=== PATIENT | male | born 1970 | race Two or more races ===

== ENCOUNTER 2020-10-20 11:37 | Emergency (ER) | payer MEDICAID, SELFPAY ==
[2020-10-20] VITALS (7 sets, daily range): BP systolic 129–166; BP diastolic 80–100; PULSE 75–98; RESP 12–20; TEMP 36.4–36.6; O2SAT 97–98; BMI 48.7
--- NOTE | 2020-10-20 | ECG_ITS ---
Test Reason : CHEST PAIN Blood Pressure : / mmHG Vent. Rate : 083 BPM Atrial Rate : 083 BPM P-R Int : 172 ms QRS Dur : 076 ms QT Int : 344 ms P-R-T Axes : 065 026 023 degrees QTc Int : 404 ms Normal sinus rhythm Normal ECG No previous ECGs available Referred By: Generic ED Physician Electronically Signed By:JASON THOMAS MD
--- NOTE | ~2020-10-20 | XR_ITS ---
EXAMINATION: XR CHEST CLINICAL INFORMATION: Chest pain COMPARISON: None TECHNIQUE: 2 views of the chest were obtained. FINDINGS: The lungs are clear. There is no pneumothorax, pleural reaction, infiltrate, groundglass opacity, or effusion. The heart is normal in size. The costophrenic sulci are clear. The hilar and mediastinal contours are normal. Frontal view is slightly rotated. Bony structures are unremarkable. XR/XR chest 2V IMPRESSION: Unremarkable examination.
--- NOTE | 2020-10-20 12:44 | PC.NURSE ---
patient remains in waiting room- sleepy, snoring at times, patient woke up and stated he was sweaty, family concerned stating that she gave patient 2mg of xanax prior to arrival. SKIN pwd, resp even and non labored, vital signs stable.
--- NOTE | 2020-10-20 14:10 | PC.NURSE ---
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
[2020-10-20 14:34] LABS: MANUAL DIFF FLAG NO
[2020-10-20 14:35] LABS: Basophils Absolute Auto 0.1 X10*3/uL (0.0-0.2); Basophils Percent Auto 0.6 % (0-2); Eosinophils Absolute Auto 0.3 X10*3/uL (0.0-0.4); Eosinophils Percent Auto 3.1 % (0-4); Hematocrit 40.4 % (42-52); Hemoglobin 12.7 g/dl (14.0-18.0); Imm Gran Abs Auto 0.09 X10*3/uL (0.00-0.03); Imm Gran Pct Auto 0.8 % (0.0-0.4); Lymphocytes Absolute Auto 3.1 X10*3/uL (1.2-4.9); Lymphocytes Percent Auto 28.5 % (20-40); Mean Corpuscular HGB Conc 31.4 g/dl (31.0-36.0); Mean Corpuscular Hemoglobin 27.5 pg (27.0-33.0); Mean Corpuscular Volume 87.6 fL (80-98); Neutrophils Absolute Auto 6.3 X10*3/uL (2.0-8.3); Platelet Count 261 X10*3/uL (160-400); Red Blood Count 4.61 X10*6/uL (4.60-5.80); Red Cell Distribution Width 13.6 % (11.0-16.0); White Blood Count 10.8 X10*3/uL (4.8-10.8)
[2020-10-20 14:41] LABS: INTERNATIONAL NORM RATIO 1.1 (0.9-1.1); Prothrombin Time 12.7 SEC (10.8-13.0)
[2020-10-20 14:44] LABS: Partial Thromboplastin Time 32.8 SEC (24.1-38.0)
[2020-10-20 14:59] LABS: Alanine Aminotransferase 29 U/L (0-40); Albumin Level 4.2 g/dL (3.5-5.0); Alkaline Phosphatase 80 U/L (39-117); Anion Gap 14 (12-20); Aspartate Amino Transferase 28 U/L (5-37); Bilirubin Total 0.4 mg/dL (0.0-1.0); Blood Urea Nitrogen 15 mg/dL (9-16); Carbon Dioxide 23 mmol/L (22-29); Chloride 105 mmol/L (96-108); Creatinine Clr Calc Pharmacy 130.8; Estimated Glomerular Filt Rate > 60; Glucose Random 77 mg/dL (60-115); Potassium 4.3 mmol/L (3.3-5.1); Sodium 138 mmol/L (135-145); Total Protein 7.8 g/dL (6.5-8.0)
[2020-10-20 15:05] LABS: Troponin-I High Sensitivity < 3.5 ng/L (<3.5-35.0)
--- NOTE | 2020-10-20 16:14 | ED.CHESTPAIN ---
HPI - Chest Pain General Chief Complaint: Chest Pain Stated Complaint: chest pain Time Seen by Provider: 10/20/20 13:46 Source: patient Mode of arrival: ambulatory History of Present Illness HPI narrative: 50-year-old male with a past medical history of asthma, bronchitis, hypertension, presenting to the ED complaining of right-sided chest pain radiating down right arm x3 days. Admits pain waxes and wanes, with associated tingling in right arm. reports chronic SOB due to asthma, not worsening. Denies fever, chills, new or worsening cough, pleuritic chest pain, LE edema, recent travel, sick contacts MD complaint: chest heaviness Related Data Allergies Allergy/AdvReac Type Severity Reaction Status Date / Time No Known Allergies Allergy Verified 10/20/20 11:51 Review of Systems Review of Systems: Constitutional: No Weight loss, No Fever, No Chills Cardiovascular: + Chest Pain, +Chronic SOB, + Dyspnea on Exertion, No Orthopnea, No Edema, + Palpitations Respiratory: +chronic Cough, No Sputum, No Wheezing Gastrointestinal: No Nausea, No Vomiting, No Abdominal pain Musculoskeletal: No joint pain Skin: No Skin Lesions, No rash Neuro: No Numbness, No Dizziness, No Headache Yes all other systems are reviewed and are negative [facility] Past Medical History Attestation statement: The following information was validated with the patient. Medical History (Updated 10/20/20 @ 17:41 by ASAEL Flowers) Asthma Bronchitis Hard of hearing HTN (hypertension) Social History Social History Alcohol intake: never Smoking Status: Never smoker Use of substances other than those prescribed or required for medical reasons: No Advance Directives: No Advance Directives Information Provided: No Physical Exam Vital Signs: Vital Signs: Last Vital Signs Temp 97.8 F 10/20/20 16:58 Pulse 82 10/20/20 16:58 Resp 20 10/20/20 16:58 BP 141/82 H 10/20/20 16:58 Pulse Ox 97 10/20/20 16:58 Body Mass Index 48.7 Const: General: cooperative, healthy appearing and comfortable Orientation/consciousness: patient oriented x3 Limitations: no limitations HENMT: Head: Yes normal to inspection Ears: hearing grossly normal bilaterally General nose exam: Normal external nose present Face and sinus: Yes normal facial exam Eyes: General: appearance normal, both eyes and all related structures EOM: EOMs intact bilaterally Neck: Neck: Yes normal visual inspection Chest: Other: Right nipple with 12 o'clock ttp w/ small movable lump noted. No fluctuance/induration. No nipple discharge or skin changes Chest palpation & inspection: normal inspection of the chest and no crepitus Resp: Effort & Inspection: normal respiratory effort Auscultation: diminished lung sounds diffuse Cardio: Rate: regular rate Heart sounds: S1 normal heart sound present and S2 normal heart sound present GI: Inspection: Yes normal to inspection Palpation (GI): Soft to palpation, nontender, no guarding and not rigid Skin: Rashes: no rashes Wounds: no wounds Neuro: General: patient oriented x3 Gait exam (Neuro): Normal gait present Extrem: General: Yes normal to inspection and Yes no pedal edema Course Course Course Narrative: -labs are unremarkable including troponin XR chest 2V IMPRESSION: Unremarkable examination -TSH and BNP wnl MDM - Chest Pain MDM Narrative Medical decision making narrative: 50-year-old male with a past medical history of asthma, bronchitis, hypertension, presenting to the ED complaining of right-sided chest pain radiating down right arm x3 days. On exam VSS, NAD/well-appearing, physical exam as above. Concern for ACS vs breast lump causing pain vs viral syndrome/COVID-19. Unlikely PE/CHF or pneumonia. Low concern for dissection. Low concern for abscess Plan: EKG, labs, CXR, reassess Medical Records Data Attestation: I reviewed the patient's medical records. Lab Data Attestation: I reviewed the patient's lab results. Result diagrams: 10/20/20 14:14 10/20/20 14:14 Labs: Lab Results 10/20/20 10/20/20 10/20/20 Range/Units 14:14 14:14 14:14 WBC 10.8 (4.8-10.8) X10*3/uL RBC 4.61 (4.60-5.80) X10*6/uL Hgb 12.7 L (14.0-18.0) g/dl Hct 40.4 L (42-52) % MCV 87.6 (80-98) fL MCH 27.5 (27.0-33.0) pg MCHC 31.4 (31.0-36.0) g/dl RDW 13.6 (11.0-16.0) % Plt Count 261 (160-400) X10*3/uL MPV 10.0 (9.4-12.4) fL Immature Gran % (Auto) 0.8 H (0.0-0.4) % Neut % (Auto) 58.0 (45-73) % Lymph % (Auto) 28.5 (20-40) % [place] % (Auto) 9.0 (2-11) % Eos % (Auto) 3.1 (0-4) % Baso % (Auto) 0.6 (0-2) % Lymph # (Auto) 3.1 (1.2-4.9) X10*3/uL [place] # (Auto) 1.0 (0.1-1.2) X10*3/uL Eos # (Auto) 0.3 (0.0-0.4) X10*3/uL Baso # (Auto) 0.1 (0.0-0.2) X10*3/uL Abs Immat Gran (auto) 0.09 H (0.00-0.03) X10*3/uL Absolute Neuts (auto) 6.3 (2.0-8.3) X10*3/uL Absolute Nucleated RBC 0.000 (0.0-0.012) X10*3/uL Nucleated RBC % (auto) 0.0 (0.0-0.2) /100WBC PT 12.7 (10.8-13.0) SEC INR 1.1 (0.9-1.1) APTT 32.8 (24.1-38.0) SEC Sodium 138 (135-145) mmol/L Potassium 4.3 (3.3-5.1) mmol/L Chloride 105 (96-108) mmol/L Carbon Dioxide 23 (22-29) mmol/L Anion Gap 14 (12-20) BUN 15 (9-16) mg/dL Creatinine 0.87 (0.5-1.4) mg/dL Estim Creat Clear Calc 130.8 Estimated GFR > 60 Random Glucose 77 (60-115) mg/dL Calcium 9.0 (8.4-10.2) mg/dL Total Bilirubin 0.4 (0.0-1.0) mg/dL AST 28 (5-37) U/L ALT 29 (0-40) U/L Alkaline Phosphatase 80 (39-117) U/L Troponin I High Sens (<3.5-35.0) ng/L B-Natriuretic Peptide (<100) pg/mL Total Protein 7.8 (6.5-8.0) g/dL Albumin 4.2 (3.5-5.0) g/dL TSH 0.71 (0.32-4.0) uIU/mL 10/20/20 Range/Units 14:14 WBC (4.8-10.8) X10*3/uL RBC (4.60-5.80) X10*6/uL Hgb (14.0-18.0) g/dl Hct (42-52) % MCV (80-98) fL MCH (27.0-33.0) pg MCHC (31.0-36.0) g/dl RDW (11.0-16.0) % Plt Count (160-400) X10*3/uL MPV (9.4-12.4) fL Immature Gran % (Auto) (0.0-0.4) % Neut % (Auto) (45-73) % Lymph % (Auto) (20-40) % [place] % (Auto) (2-11) % Eos % (Auto) (0-4) % Baso % (Auto) (0-2) % Lymph # (Auto) (1.2-4.9) X10*3/uL [place] # (Auto) (0.1-1.2) X10*3/uL Eos # (Auto) (0.0-0.4) X10*3/uL Baso # (Auto) (0.0-0.2) X10*3/uL Abs Immat Gran (auto) (0.00-0.03) X10*3/uL Absolute Neuts (auto) (2.0-8.3) X10*3/uL Absolute Nucleated RBC (0.0-0.012) X10*3/uL Nucleated RBC % (auto) (0.0-0.2) /100WBC PT (10.8-13.0) SEC INR (0.9-1.1) APTT (24.1-38.0) SEC Sodium (135-145) mmol/L Potassium (3.3-5.1) mmol/L Chloride (96-108) mmol/L Carbon Dioxide (22-29) mmol/L Anion Gap (12-20) BUN (9-16) mg/dL Creatinine (0.5-1.4) mg/dL Estim Creat Clear Calc Estimated GFR Random Glucose (60-115) mg/dL Calcium (8.4-10.2) mg/dL Total Bilirubin (0.0-1.0) mg/dL AST (5-37) U/L ALT (0-40) U/L Alkaline Phosphatase (39-117) U/L Troponin I High Sens < 3.5 (<3.5-35.0) ng/L B-Natriuretic Peptide < 10 (<100) pg/mL Total Protein (6.5-8.0) g/dL Albumin (3.5-5.0) g/dL TSH (0.32-4.0) uIU/mL ECG Data ECG #1: Attestation: I personally reviewed and interpreted this ECG as follows: ECG interpretation date: 10/20/20 ECG interpretation time: 11:48 Prior ECG tracings: not available for review Interpretation: EKG normal sinus rhythm. Rate of 83. No STEMI. 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
[2020-10-20 16:28] LABS: B Type Natriuretic Peptide < 10 pg/mL (<100)
[2020-10-20] MEDS: Albuterol Sulfate 90 MCG 8 GM INHALER 4 PUFF INHALE (16:40)
[2020-10-20 16:42] LABS: TSH reflex Free T4 0.71 uIU/mL (0.32-4.0)
[2020-10-20 17:54] LABS: Influenza A PCR NEGATIVE (Negative); Influenza B PCR NEGATIVE (Negative); Resp Syncy Virus RNA Qual PCR NEGATIVE (Negative); SARS COV2 PCR INHOUSE NEGATIVE (Negative)
== END 2020-10-20 18:00 | disposition home or self-care (01) ==
PROVIDERS: Nurse Practitioner Primary Care; Physician Assistant; Emergency Provider Emergency Medicine
DX: R07.89 Other chest pain (principal); N63.15 Unspecified lump in the right breast, overlapping quadrants; Z20.822 Contact with and (suspected) exposure to COVID-19; J45.909 Unspecified asthma, uncomplicated; I10 Essential (primary) hypertension
CPT/HCPCS: 0241U; 36415; 71046; 80053; 83880; 84443; 84484; 85025; 85610; 85730; 93005; 94640; 99284; 99285

== ENCOUNTER 2021-01-23 16:02 | Emergency (ER) | payer MEDICAID, SELFPAY ==
[2021-01-23 16:09] VITALS: BP 150/83; PULSE 74; RESP 16; TEMP 37; O2SAT 98; BMI 41.9
--- NOTE | 2021-01-23 16:42 | ED.ASTHMA ---
HPI - Asthma General Chief Complaint: Asthma Stated Complaint: asthma Time Seen by Provider: 01/23/21 16:42 Source: patient Mode of arrival: ambulatory Limitations: no limitations History of Present Illness HPI Narrative: Patient history of asthma been sick for last few days getting worse wheezing no fever has dry cough patient been vaccinated for COVID-19 patient does have a nebulizer at home but ran out medicine using inhaler Related Data Previous Rx's Medication Instructions Recorded albuterol sulfate 2.5 mg INHALATION Q4-6H PRN #180 ml 01/23/21 albuterol sulfate [Ventolin HFA] 2 puff INHALATION Q4-6H PRN #8.5 g 01/23/21 montelukast [Singulair] 10 mg PO DAILY #30 tab 01/23/21 prednisone 40 mg PO DAILY #10 tab 01/23/21 Allergies Allergy/AdvReac Type Severity Reaction Status Date / Time No Known Allergies Allergy Verified 01/23/21 16:14 Review of Systems Review of Systems: Constitutional : No Weight loss, No Fever, No Chills ENT/Mouth : No sore throat, No Rhinorrhea Eyes: No Eye Pain, No Swelling Cardiovascular : No Chest Pain, no palpitations Respiratory : + Cough, No Sputum, + shortness of breath Gastrointestinal : no Nausea, No Vomiting, No Diarrhea, No abdominal Pain, no black stools Genitourinary : No Dysuria, No Urinary Frequency Musculoskeletal : No joint pain, No Myalgias, No Joint Swelling Skin : No Skin Lesions, No rash Neuro : No Weakness, No Numbness, No Dizziness, No Headache Psych : No Anxiety/Panic, No Depression Heme/Lymph: No Bruising, No Lymphadenopathy Endocrine : No Polyuria, No Polydipsia All other systems reviewed and are negative PMFSH Past Medical History Medical History Asthma Bronchitis Hard of hearing HTN (hypertension) Social History Social History Alcohol intake: never Smoked in Last 30 Days: No Use of substances other than those prescribed or required for medical reasons: No Advance Directives: No Advance Directives Information Provided: Yes Physical Exam Vital Signs: Vital Signs: Last Vital Signs Temp 98.6 F 01/23/21 16:09 Pulse 81 01/23/21 17:21 Resp 16 01/23/21 16:09 BP 150/83 H 01/23/21 16:09 Pulse Ox 98 01/23/21 16:09 Body Mass Index 41.9 Appearance: Alert. Oriented X3. No acute distress. Eyes: PERRLA, No Nystagmus ENT: Pharynx normal. Oral Mucosa moist Neck: Normal inspection. Neck supple. CVS: Normal heart rate and rhythm. Pulses normal. Respiratory: No respiratory distress. Equal air entry bilateral, + wheezing , +rhonchi no rales Abdomen: Soft and nontender. Bowel sounds are present, no mass palpable, no CVA tenderness Skin: Skin warm and dry. Normal skin color. Normal skin turgor. Extremities: No lower extremity edema. No calf tenderness Neuro: Oriented X 3. No motor deficit. No sensory deficit.No cerebellar signs , cranial nerves II-XII intact MDM - Asthma MDM Narrative Medical decision making narrative: Patient with mild asthma exacerbation will give him p.o. prednisone medicine for nebulizer and inhaler advised to follow with PCP Discharge Plan Discharge Clinical Impression: Asthma with acute exacerbation Qualifiers: Asthma severity: moderate Asthma persistence: persistent Qualified Code(s): J45.41 - Moderate persistent asthma with (acute) exacerbation Patient Disposition: Home, Self-Care Instructions: Asthma (ED) Additional Instructions: TAKE YOUR INHALER PRESCRIBED TAKE PREDNISONE DAILY FOR NEXT 5 DAYS. FOLLOW-UP WITH YOUR PCP IF NOT BETTER Prescriptions: New albuterol sulfate 2.5 mg /3 mL (0.083 %) solution for nebulization 2.5 mg inhalation Q4-6H PRN (Reason: shortness of breath or wheezing) Qty: 180 RF: 0 albuterol sulfate [Ventolin HFA] 90 mcg/actuation HFA aerosol inhaler 2 puff inhalation Q4-6H PRN (Reason: shortness of breath or wheezing) Qty: 8.5 RF: 1 prednisone 20 mg tablet 40 mg PO DAILY Qty: 10 RF: 0 montelukast [Singulair] 10 mg tablet 10 mg PO DAILY Qty: 30 RF: 0 Discharge Date/Time: 01/23/21 17:47
[2021-01-23] MEDS: predniSONE 20 MG TABLET 60 MG PO (17:08)
[2021-01-23] MEDS: Albuterol Sulfate 90 MCG 8 GM INHALER 4 PUFF INHALE (17:20)
[2021-01-23 17:21] VITALS: PULSE 81; O2SAT 97
== END 2021-01-23 17:47 | disposition home or self-care (01) ==
PROVIDERS: Emergency Provider Internal Medicine
DX: J45.41 Moderate persistent asthma with (acute) exacerbation (principal); I10 Essential (primary) hypertension
CPT/HCPCS: 94640; 99284

== ENCOUNTER 2021-02-13 11:32 | Emergency (ER) | payer MEDICAID, SELFPAY ==
--- NOTE | ~2021-02-13 | XR_ITS ---
EXAMINATION: CHEST 2 VIEWS CLINICAL INFORMATION: pain . COMPARISON: 10/20/2020. TECHNIQUE: PA and lateral views of the chest obtained. FINDINGS: The lungs are well expanded. No focal infiltrate, effusion, edema, or pneumothorax. Cardiac and mediastinal silhouettes are within normal limits for technique. No acute bony abnormality seen XR/XR chest 2V IMPRESSION: No evidence of acute disease
[2021-02-13 11:38] VITALS: BP 159/89; PULSE 91; RESP 20; TEMP 36.9; O2SAT 96; BMI 43.5
--- NOTE | 2021-02-13 11:42 | ECG_ITS ---
Test Reason : DIZZINESS Blood Pressure : / mmHG Vent. Rate : 086 BPM Atrial Rate : 086 BPM P-R Int : 166 ms QRS Dur : 076 ms QT Int : 348 ms P-R-T Axes : 071 031 034 degrees QTc Int : 416 ms Normal sinus rhythm Normal ECG When compared with ECG of 20-OCT-2020 11:48, No significant change was found Referred By: Generic ED Physician Electronically Signed By:STEFANIE MIRZA
[2021-02-13 12:22] VITALS: BP 143/73; PULSE 83; RESP 18; TEMP 37.1; O2SAT 98
--- NOTE | 2021-02-13 12:32 | ED_ITS ---
HPI - Chest Pain General Chief Complaint: Chest Pain Stated Complaint: chest pain Time Seen by Provider: 02/13/21 12:05 Source: patient Mode of arrival: ambulatory Limitations: no limitations History of Present Illness HPI narrative: 50 yo male with hx of HTN no longer on meds doing well with exercise off of his medications, asthma here with 1 day of L shoulder going across chest with some dyspnea he believes it might be related to lifting a large bag of books down two flights of stairs on pain is worse with movements and lifting L arm MD complaint: other (L upper chest pain and shoulder pain) Onset (ago): day(s) (1) Timing of current episode: constant Prior episodes: No Onset: during rest Pain location: left chest and other (L shoulder) Pain radiation: left arm Severity: moderate Quality: aching Relieving factors: nothing Exacerbating factors: palpation and movement Context: other (thinks it was related to carrying a massively heavy bag on with that arm) Associated symptoms: dyspnea Treatment prior to arrival: none Related Data Previous Rx's Medication Instructions Recorded albuterol sulfate 2.5 mg INHALATION Q4-6H PRN #180 ml 01/23/21 albuterol sulfate [Ventolin HFA] 2 puff INHALATION Q4-6H PRN #8.5 g 01/23/21 montelukast [Singulair] 10 mg PO DAILY #30 tab 01/23/21 prednisone 40 mg PO DAILY #10 tab 01/23/21 cyclobenzaprine 10 mg PO TID PRN #14 tab 02/13/21 lidocaine 1 patch TOPICAL DAILY PRN #10 ea 02/13/21 Allergies Allergy/AdvReac Type Severity Reaction Status Date / Time No Known Allergies Allergy Verified 02/13/21 11:42 Review of Systems Review of Systems: Constitutional : No Weight loss, No Fever, No Chills ENT/Mouth : No sore throat, No Rhinorrhea Eyes: No Eye Pain, No Swelling Cardiovascular : pos Chest Pain, pos SOB, no Dyspnea on Exertion, No Orthopnea, No Edema, No Palpitations Respiratory : No Cough, No Sputum Gastrointestinal : no Nausea, No Vomiting, No Diarrhea, No abdominal Pain, No Hematochezia, No Melena Genitourinary : No Dysuria, No Urinary Frequency Musculoskeletal : pos joint pain, No Myalgias, No Joint Swelling Skin : No Skin Lesions, No rash Neuro : No Weakness, No Numbness, No Dizziness, No Headache Psych : No Anxiety/Panic, No Depression Heme/Lymph: No Bruising, No Lymphadenopathy Endocrine : No Polyuria, No Polydipsia All other systems reviewed and are negative [facility] Past Medical History Attestation statement: The following information was validated with the patient. Medical History Asthma Bronchitis Hard of hearing HTN (hypertension) Social History Social History (Updated 02/13/21 @ 13:10 by Joselyn Kaufman DO) Alcohol intake: never Patient Tobacco Use Status: Never used Tobacco Advance Directives: No Advance Directives Information Provided: No Physical Exam Vital Signs: Vital Signs: Last Vital Signs Temp 98.7 F 02/13/21 12:22 Pulse 83 02/13/21 12:22 Resp 18 02/13/21 12:22 BP 143/73 H 02/13/21 12:22 Pulse Ox 98 02/13/21 12:22 Body Mass Index 43.5 Appearance: Alert. Oriented X3. No acute distress. Eyes: Pupils equal, round and reactive to light. ENT: Pharynx normal. Neck: Normal inspection. Neck supple. CVS: Normal heart rate and rhythm. Pulses normal. Respiratory: No respiratory distress. Breath sounds normal. Abdomen: Soft and non-tender. Skin: Skin warm and dry. Normal skin color. Normal skin turgor. Extremities: No lower extremity edema. No calf ttp L shoulder distal NV intact, ttp along trapezius, pain with ROM of L shoulder Neuro: Oriented X 3. No motor deficit. No sensory deficit. Course Course Course Narrative: negative workup stable for DC MDM - Chest Pain MDM Narrative Medical decision making narrative: 50 yo male with hx of HTN no longer on meds doing well with exercise off of his medications, asthma here with 1 day of L shoulder going across chest with some dyspnea he believes it might be related to lifting a large bag of books down two flights of stairs on pain is worse with movements and lifting L arm at this time likely MSK in nature, seems mostly related to moving L shoulder and given history of heavy lifting suspect this is MSK at this time given his age will obtain EKG, CXR, troponin x 1, he has no abnormal pulses, no distress doubt dissection, no DVT/hypoxia/pleuritic pain in nature doubt PE at this time, dispo per results and findings. Lab Data Result diagrams: 02/13/21 13:03 02/13/21 13:03 Labs: Lab Results 02/13/21 02/13/21 02/13/21 Range/Units 13:03 13:03 13:04 WBC 12.6 H (4.8-10.8) X10*3/uL RBC 4.43 L (4.60-5.80) X10*6/uL Hgb 12.0 L (14.0-18.0) g/dl Hct 38.8 L (42-52) % MCV 87.6 (80-98) fL MCH 27.1 (27.0-33.0) pg MCHC 30.9 L (31.0-36.0) g/dl RDW 14.4 (11.0-16.0) % Plt Count 223 (160-400) X10*3/uL MPV 9.4 (9.4-12.4) fL Immature Gran % (Auto) 0.5 H (0.0-0.4) % Neut % (Auto) 69.7 (45-73) % Lymph % (Auto) 18.3 L (20-40) % [place] % (Auto) 8.2 (2-11) % Eos % (Auto) 3.0 (0-4) % Baso % (Auto) 0.3 (0-2) % Lymph # (Auto) 2.3 (1.2-4.9) X10*3/uL [place] # (Auto) 1.0 (0.1-1.2) X10*3/uL Eos # (Auto) 0.4 (0.0-0.4) X10*3/uL Baso # (Auto) 0.0 (0.0-0.2) X10*3/uL Abs Immat Gran (auto) 0.06 H (0.00-0.03) X10*3/uL Absolute Neuts (auto) 8.8 H (2.0-8.3) X10*3/uL Absolute Nucleated RBC 0.000 (0.0-0.012) X10*3/uL Nucleated RBC % (auto) 0.0 (0.0-0.2) /100WBC Sodium 141 (135-145) mmol/L Potassium 4.5 (3.3-5.1) mmol/L Chloride 108 (96-108) mmol/L Carbon Dioxide 29 (22-29) mmol/L Anion Gap 9 L (12-20) BUN 11 (9-16) mg/dL Creatinine 0.87 (0.5-1.4) mg/dL Estim Creat Clear Calc 122.5 Estimated GFR > 60 Random Glucose 102 (60-115) mg/dL Calcium 8.8 (8.4-10.2) mg/dL Magnesium 1.9 (1.6-2.6) mg/dL Total Bilirubin 0.5 (0.0-1.0) mg/dL Direct Bilirubin 0.3 (0.0-0.5) mg/dL AST 22 (5-37) U/L ALT 21 (0-40) U/L Alkaline Phosphatase 77 (39-117) U/L Troponin I High Sens < 3.5 (<3.5-35.0) ng/L Total Protein 6.8 (6.5-8.0) g/dL Albumin 3.9 (3.5-5.0) g/dL Lipase 62 (8-78) U/L ECG Data ECG #1: Attestation: I personally reviewed and interpreted this ECG as follows: ECG interpretation date: 02/13/21 ECG interpretation time: 12:32 Interpretation: Rate: 86 Rhythm: NSR [place]: normal Normal P waves. Normal MARTITA. Normal QRS complex. ST T wave : normal no GABRIELLE qTC: normal prior studies: no acute ischemia The study has been interpreted contemporaneously by me. . Discharge Plan Discharge Clinical Impression: Atypical chest pain Patient Disposition: Home, Self-Care Instructions: Chest Pain (ED) Additional Instructions: return to ED for any worsening symptoms or concerns Prescriptions: New cyclobenzaprine 10 mg tablet 10 mg PO TID PRN (Reason: muscle spasm) Qty: 14 RF: 0 lidocaine 4 % adhesive patch,medicated 1 patch topical DAILY PRN (Reason: pain) Qty: 10 RF: 0 No Action albuterol sulfate 2.5 mg /3 mL (0.083 %) solution for nebulization 2.5 mg inhalation Q4-6H PRN (Reason: shortness of breath or wheezing) Qty: 180 RF: 0 albuterol sulfate [Ventolin HFA] 90 mcg/actuation HFA aerosol inhaler 2 puff inhalation Q4-6H PRN (Reason: shortness of breath or wheezing) Qty: 8.5 RF: 1 prednisone 20 mg tablet 40 mg PO DAILY Qty: 10 RF: 0 montelukast [Singulair] 10 mg tablet 10 mg PO DAILY Qty: 30 RF: 0 Referrals: Physician,Unknown [Primary Care Provider] - 2 days Stand Alone Forms: Work/School Release
[2021-02-13 13:08] LABS: MANUAL DIFF FLAG NO
[2021-02-13 13:11] LABS: Basophils Percent Auto 0.3 % (0-2); Eosinophils Absolute Auto 0.4 X10*3/uL (0.0-0.4); Hematocrit 38.8 % (42-52); Imm Gran Abs Auto 0.06 X10*3/uL (0.00-0.03); Imm Gran Pct Auto 0.5 % (0.0-0.4); Lymphocytes Absolute Auto 2.3 X10*3/uL (1.2-4.9); Lymphocytes Percent Auto 18.3 % (20-40); Mean Corpuscular HGB Conc 30.9 g/dl (31.0-36.0); Mean Corpuscular Hemoglobin 27.1 pg (27.0-33.0); Mean Corpuscular Volume 87.6 fL (80-98); Mean Platelet Volume 9.4 fL (9.4-12.4); Monocytes Percent Auto 8.2 % (2-11); Neutrophils Absolute Auto 8.8 X10*3/uL (2.0-8.3); Neutrophils Percent Auto 69.7 % (45-73); Platelet Count 223 X10*3/uL (160-400); Red Blood Count 4.43 X10*6/uL (4.60-5.80); Red Cell Distribution Width 14.4 % (11.0-16.0); White Blood Count 12.6 X10*3/uL (4.8-10.8)
[2021-02-13] MEDS: Cyclobenzaprine HCl 10 MG TABLET PO (13:31)
[2021-02-13] MEDS: Lidocaine 4 % Patch ADH..PATCH 1 PATCH TRANSDERMA (13:32)
[2021-02-13 13:45] LABS: Alanine Aminotransferase 21 U/L (0-40); Albumin Level 3.9 g/dL (3.5-5.0); Alkaline Phosphatase 77 U/L (39-117); Anion Gap 9 (12-20); Aspartate Amino Transferase 22 U/L (5-37); Bilirubin Direct 0.3 mg/dL (0.0-0.5); Bilirubin Total 0.5 mg/dL (0.0-1.0); Blood Urea Nitrogen 11 mg/dL (9-16); Calcium 8.8 mg/dL (8.4-10.2); Carbon Dioxide 29 mmol/L (22-29); Chloride 108 mmol/L (96-108); Creatinine Clr Calc Pharmacy 122.5; Estimated Glomerular Filt Rate > 60; Glucose Random 102 mg/dL (60-115); Lipase 62 U/L (8-78); Magnesium 1.9 mg/dL (1.6-2.6); Potassium 4.5 mmol/L (3.3-5.1); Sodium 141 mmol/L (135-145); Total Protein 6.8 g/dL (6.5-8.0)
[2021-02-13 13:47] LABS: Troponin-I High Sensitivity < 3.5 ng/L (<3.5-35.0)
[2021-02-13 14:21] VITALS: BP 160/71; PULSE 75; RESP 16
[2021-02-14 06:40] LABS: Estimated Average Glucose 100 mg/dL; Hemoglobin A1c % 5.1 %
== END 2021-02-13 14:27 | disposition home or self-care (01) ==
PROVIDERS: Emergency Provider Emergency Medicine
DX: R07.89 Other chest pain (principal); I10 Essential (primary) hypertension; J45.909 Unspecified asthma, uncomplicated; Z79.899 Other long term (current) drug therapy
CPT/HCPCS: 36415; 71046; 80048; 80076; 83036; 83690; 83735; 84484; 85025; 93005; 99283; 99284

== ENCOUNTER 2021-03-07 19:31 | Emergency (ER) | payer MEDICAID, SELFPAY ==
--- NOTE | ~2021-03-07 | CT_ITS ---
EXAMINATION: CT CHEST WITHOUT CONTRAST CLINICAL INFORMATION: Pneumonia COMPARISON: Chest x-ray March 07, 2021, February 13, 2021 TECHNIQUE: Multidetector volumetric CT imaging of the chest was done. Axial MIP volume rendering provided. Sagittal and coronal reformatted images were obtained. This CT examination was performed using dose optimization techniques as appropriate, variously including the following: *Automated exposure control *Adjustment of mA and/or kV according to patient size (this includes techniques or standardized protocols for targeted exams where dose is matched to indication/reason for exam; i.e. extremities or head) *Use of iterative reconstruction technique DLP: 550 mGy-cm FINDINGS: LUNGS: No pneumonia. No airspace disease. No interstitial lung disease. The central bronchial airways are open. There is no bronchiectasis. MEDIASTINUM: No mediastinal or hilar mass. Heart size is normal. No pericardial effusion. Thyroid is unremarkable. PLEURA: There is no pleural effusion. No pleural mass or thickening. AXILLA: No lymphadenopathy. UPPER ABDOMEN: No focal lesion in the visualized portions of liver, spleen, pancreas, kidneys or the adrenal glands. OSSEOUS STRUCTURES: Unremarkable. CT/CT chest wo con IMPRESSION: Normal CT chest.
--- NOTE | ~2021-03-07 | XR_ITS ---
EXAMINATION: XR CHEST CLINICAL INFORMATION: Asthma exacerbation. COMPARISON: Chest x-ray February 13, 2021 TECHNIQUE: Frontal portable view of the chest was obtained. 9:53 PM FINDINGS: Lung volume is low. This accentuates these pulmonary vascular markings. There is no overt pulmonary edema. No focal consolidation, no pleural effusion or pneumothorax. The heart size is normal. XR/XR chest 1V IMPRESSION: Low lung volume accentuating pulmonary vascular markings. No acute abnormality of chest.
[2021-03-07 19:38] VITALS: BP 154/87; PULSE 100; RESP 22; TEMP 36.7; O2SAT 99; BMI 41.9
[2021-03-07 20:49] VITALS: BP 185/94; PULSE 102; RESP 20; TEMP 38; O2SAT 97
--- NOTE | 2021-03-07 21:05 | ED.ASTHMA ---
HPI - Asthma General Chief Complaint: Asthma Stated Complaint: ASTHMA Time Seen by Provider: 03/07/21 20:55 Source: patient Mode of arrival: ambulatory Limitations: no limitations History of Present Illness HPI Narrative: To emergency room complaining of shortness of breath. Patient states he has been wheezing and been short of breath for 2-3 days. Patient has been using his albuterol pump and nebulizer without relief. Patient also reports that he has been coughing more than usual. Patient denies any history of COPD, never smoked. To his knowledge, he has not had any fever or chills. However, in triage patient had temperature of 100.4 degrees. Patient denies chest pain, no headache, no body aches, no urinary tract symptoms, states he already received his 2 COVID shots Related Data Previous Rx's Medication Instructions Recorded albuterol sulfate 2.5 mg INHALATION Q4-6H PRN #180 ml 01/23/21 albuterol sulfate [Ventolin HFA] 2 puff INHALATION Q4-6H PRN #8.5 g 01/23/21 montelukast [Singulair] 10 mg PO DAILY #30 tab 01/23/21 prednisone 40 mg PO DAILY #10 tab 01/23/21 cyclobenzaprine 10 mg PO TID PRN #14 tab 02/13/21 lidocaine 1 patch TOPICAL DAILY PRN #10 ea 02/13/21 azithromycin 250 mg PO DAILY #6 tab 03/08/21 prednisone 50 mg PO DAILY #4 tab 03/08/21 Allergies Allergy/AdvReac Type Severity Reaction Status Date / Time No Known Allergies Allergy Verified 03/07/21 19:38 Review of Systems Review of Systems: Constitutional : No Weight loss, No Fever, No Chills, No Night Sweats, No Fatigue, No Malaise ENT/Mouth : No Hearing loss, No Ear Pain, No Nasal Congestion, No Sinus Pain, No Hoarseness, No sore throat, No Rhinorrhea, No Swallowing Difficulty Eyes: No Eye Pain, No Swelling, No Redness, No Foreign Body, No Discharge, No Vision Changes Cardiovascular : No Chest Pain, No SOB, no orthopnea, no lower extremity edema, no palpitations Respiratory : Increased dry Cough, No Sputum, complaining of frequent and ongoing Wheezing, No Smoke Exposure, complaining of shortness of breath Gastrointestinal : No Nausea, No Vomiting, No Diarrhea, No Constipation, No abdominal Pain, No Hematochezia, No Melena Genitourinary : no irregular bleeding, No Dysuria, No Urinary Frequency, No Hematuria, No Urinary Incontinence, No Urgency, No Flank Pain, No Urinary Flow Changes, No Hesitancy Musculoskeletal : No joint pain, No Myalgias, No Joint Swelling Skin : No Skin Lesions, No rash Neuro : No Weakness, No Numbness, No Paresthesias, No Loss of Consciousness, No Dizziness, No Headache Psych : No Anxiety/Panic, No Depression, No SI/HI/AH/VH, No Social Issues, Heme/Lymph: No Bruising, No Bleeding,No Lymphadenopathy Endocrine : No Polyuria, No Polydipsia, No Temperature Intolerance [facility] Past Medical History Medical History Asthma Bronchitis Hard of hearing HTN (hypertension) Social History Social History (Updated 02/13/21 @ 13:10 by Joselyn Kaufman DO) Alcohol intake: never Patient Tobacco Use Status: Never used Tobacco Advance Directives: No Advance Directives Information Provided: Yes Physical Exam Vital Signs: Vital Signs: Last Vital Signs Temp 98.0 F 03/08/21 00:00 Pulse 90 03/08/21 01:15 Resp 16 03/08/21 00:00 BP 157/73 H 03/08/21 00:00 Pulse Ox 95 03/08/21 00:00 Body Mass Index 41.9 Appearance: Alert. Oriented X3. No acute distress. Eyes: Pupils equal, round and reactive to light. ENT: Pharynx normal. Neck: Normal inspection. Neck supple. No lymph nodes noted. No crepitus CVS: Normal heart rate and rhythm. Pulses normal. Normal S1 and S2 Respiratory: No respiratory distress. Mild bilateral wheezing, slightly decreased breath sounds bilaterally no rales Abdomen: Soft and nontender. No rigidity. No distention. good BS x4 Skin: Skin warm and dry. Normal skin color. Normal skin turgor. Extremities: No lower extremity edema. No Lacerations. No Rash Neuro: Oriented X 3. No motor deficit. No sensory deficit. Moving all extermities. No slurred speech. Course Course Course Narrative: Patient is obese, patient's fluids are being given on ideal weight of 60 kg Patient's lactic acid is likely due to multiple albuterol nebulization treatments, at this time sepsis is not suspected Patient received 2 breathing treatments, patient is no longer wheezing, patient was walked around the emergency room, oxygen saturation remained 97% and above, patient does not feel short of breath. I discussed with the patient that the chest x-ray and the CT scan do not show pneumonia, however is unclear why the patient's blood cell count is elevated 22.3. I discussed with the patient that we will empirically treat him with antibiotic, instructed to return to emergency room if he has any worsening or new symptoms. MDM - Asthma Lab Data Result diagrams: 03/07/21 21:20 03/07/21 21:20 Labs: Lab Results 03/07/21 03/07/21 03/07/21 Range/Units 21:17 21:18 21:19 WBC (4.8-10.8) X10*3/uL RBC (4.60-5.80) X10*6/uL Hgb (14.0-18.0) g/dl Hct (42-52) % MCV (80-98) fL MCH (27.0-33.0) pg MCHC (31.0-36.0) g/dl RDW (11.0-16.0) % Plt Count (160-400) X10*3/uL MPV (9.4-12.4) fL Immature Gran % (Auto) (0.0-0.4) % Neut % (Auto) (45-73) % Lymph % (Auto) (20-40) % Christian % (Auto) (2-11) % Eos % (Auto) (0-4) % Baso % (Auto) (0-2) % Lymph # (Auto) (1.2-4.9) X10*3/uL Christian # (Auto) (0.1-1.2) X10*3/uL Eos # (Auto) (0.0-0.4) X10*3/uL Baso # (Auto) (0.0-0.2) X10*3/uL Abs Immat Gran (auto) (0.00-0.03) X10*3/uL Absolute Neuts (auto) (2.0-8.3) X10*3/uL Absolute Nucleated RBC (0.0-0.012) X10*3/uL Nucleated RBC % (auto) (0.0-0.2) /100WBC Sodium (135-145) mmol/L Potassium (3.3-5.1) mmol/L Chloride (96-108) mmol/L Carbon Dioxide (22-29) mmol/L Anion Gap (12-20) BUN (9-16) mg/dL Creatinine (0.5-1.4) mg/dL Estim Creat Clear Calc Estimated GFR Random Glucose (60-115) mg/dL Lactic Acid 2.5 H* (0.5-2.0) mmol/L Lactic Acid Fup @ 2Hr (0.5-2.0) mmol/L Calcium (8.4-10.2) mg/dL Troponin I High Sens < 3.5 (<3.5-35.0) ng/L B-Natriuretic Peptide < 10 (<100) pg/mL Urine Color Urine Appearance Urine pH (5.0-8.0) Ur Specific [place] (1.005-1.025) Urine Protein (NEG-TRACE) MG/DL Urine Glucose (UA) (NEG) MG/DL Urine Ketones (NEG) MG/DL Urine Blood (NEG) Urine Nitrite (NEG) Ur Leukocyte Esterase (NEG) Urine RBC (0) /HPF Urine WBC (0-4) /HPF Ur Squamous Epith Cells /LPF Urine Bacteria /LPF COVID-19 ([facility]) Negative (Negative) COVID-19 Clin Com See Note 03/07/21 03/07/21 03/07/21 Range/Units 21:20 21:20 23:32 WBC 22.3 H (4.8-10.8) X10*3/uL RBC 4.56 L (4.60-5.80) X10*6/uL Hgb 12.5 L (14.0-18.0) g/dl Hct 40.0 L (42-52) % MCV 87.7 (80-98) fL MCH 27.4 (27.0-33.0) pg MCHC 31.3 (31.0-36.0) g/dl RDW 14.6 (11.0-16.0) % Plt Count 258 (160-400) X10*3/uL MPV 9.8 (9.4-12.4) fL Immature Gran % (Auto) 0.4 (0.0-0.4) % Neut % (Auto) 84.9 H (45-73) % Lymph % (Auto) 7.7 L (20-40) % Christian % (Auto) 4.3 (2-11) % Eos % (Auto) 2.4 (0-4) % Baso % (Auto) 0.3 (0-2) % Lymph # (Auto) 1.7 (1.2-4.9) X10*3/uL Christian # (Auto) 1.0 (0.1-1.2) X10*3/uL Eos # (Auto) 0.5 H (0.0-0.4) X10*3/uL Baso # (Auto) 0.1 (0.0-0.2) X10*3/uL Abs Immat Gran (auto) 0.10 H (0.00-0.03) X10*3/uL Absolute Neuts (auto) 18.9 H (2.0-8.3) X10*3/uL Absolute Nucleated RBC 0.000 (0.0-0.012) X10*3/uL Nucleated RBC % (auto) 0.0 (0.0-0.2) /100WBC Sodium 140 (135-145) mmol/L Potassium 4.3 (3.3-5.1) mmol/L Chloride 103 (96-108) mmol/L Carbon Dioxide 27 (22-29) mmol/L Anion Gap 14 (12-20) BUN 11 (9-16) mg/dL Creatinine 1.10 (0.5-1.4) mg/dL Estim Creat Clear Calc 94.9 Estimated GFR > 60 Random Glucose 95 (60-115) mg/dL Lactic Acid (0.5-2.0) mmol/L Lactic Acid Fup @ 2Hr 1.9 (0.5-2.0) mmol/L Calcium 9.5 D (8.4-10.2) mg/dL Troponin I High Sens (<3.5-35.0) ng/L B-Natriuretic Peptide (<100) pg/mL Urine Color Urine Appearance Urine pH (5.0-8.0) Ur Specific [place] (1.005-1.025) Urine Protein (NEG-TRACE) MG/DL Urine Glucose (UA) (NEG) MG/DL Urine Ketones (NEG) MG/DL Urine Blood (NEG) Urine Nitrite (NEG) Ur Leukocyte Esterase (NEG) Urine RBC (0) /HPF Urine WBC (0-4) /HPF Ur Squamous Epith Cells /LPF Urine Bacteria /LPF COVID-19 ([facility]) (Negative) COVID-19 Clin Com 03/07/21 Range/Units 23:58 WBC (4.8-10.8) X10*3/uL RBC (4.60-5.80) X10*6/uL Hgb (14.0-18.0) g/dl Hct (42-52) % MCV (80-98) fL MCH (27.0-33.0) pg MCHC (31.0-36.0) g/dl RDW (11.0-16.0) % Plt Count (160-400) X10*3/uL MPV (9.4-12.4) fL Immature Gran % (Auto) (0.0-0.4) % Neut % (Auto) (45-73) % Lymph % (Auto) (20-40) % Christian % (Auto) (2-11) % Eos % (Auto) (0-4) % Baso % (Auto) (0-2) % Lymph # (Auto) (1.2-4.9) X10*3/uL Christian # (Auto) (0.1-1.2) X10*3/uL Eos # (Auto) (0.0-0.4) X10*3/uL Baso # (Auto) (0.0-0.2) X10*3/uL Abs Immat Gran (auto) (0.00-0.03) X10*3/uL Absolute Neuts (auto) (2.0-8.3) X10*3/uL Absolute Nucleated RBC (0.0-0.012) X10*3/uL Nucleated RBC % (auto) (0.0-0.2) /100WBC Sodium (135-145) mmol/L Potassium (3.3-5.1) mmol/L Chloride (96-108) mmol/L Carbon Dioxide (22-29) mmol/L Anion Gap (12-20) BUN (9-16) mg/dL Creatinine (0.5-1.4) mg/dL Estim Creat Clear Calc Estimated GFR Random Glucose (60-115) mg/dL Lactic Acid (0.5-2.0) mmol/L Lactic Acid Fup @ 2Hr (0.5-2.0) mmol/L Calcium (8.4-10.2) mg/dL Troponin I High Sens (<3.5-35.0) ng/L B-Natriuretic Peptide (<100) pg/mL Urine Color COLORLESS Urine Appearance CLEAR Urine pH 6.0 (5.0-8.0) Ur Specific [place] <= 1.005 (1.005-1.025) Urine Protein NEG (NEG-TRACE) MG/DL Urine Glucose (UA) NEG (NEG) MG/DL Urine Ketones NEG (NEG) MG/DL Urine Blood NEG (NEG) Urine Nitrite NEG (NEG) Ur Leukocyte Esterase NEG (NEG) Urine RBC 0 (0) /HPF Urine WBC 0 (0-4) /HPF Ur Squamous Epith Cells TRACE /LPF Urine Bacteria TRACE /LPF COVID-19 ([facility]) (Negative) COVID-19 Clin Com Imaging Data Chest x-ray: Radiologist's impression: Lung volume is low. This accentuates these pulmonary vascular markings. There is no overt pulmonary edema. No focal consolidation, no pleural effusion or pneumothorax. The heart size is normal. XR/XR chest 1V IMPRESSION: Low lung volume accentuating pulmonary vascular markings. No acute abnormality of chest. CT scan - chest: Radiologist's impression: LUNGS: No pneumonia. No airspace disease. No interstitial lung disease. The central bronchial airways are open. There is no bronchiectasis. MEDIASTINUM: No mediastinal or hilar mass. Heart size is normal. No pericardial effusion. Thyroid is unremarkable. PLEURA: There is no pleural effusion. No pleural mass or thickening. AXILLA: No lymphadenopathy. UPPER ABDOMEN: No focal lesion in the visualized portions of liver, spleen, pancreas, kidneys or the adrenal glands. OSSEOUS STRUCTURES: Unremarkable. CT/CT chest wo con IMPRESSION: Normal CT chest. ECG Data Attestation: I personally reviewed and interpreted this ECG as follows: (Senna rhythm, heart rate 96, no ST segment depression or elevation, no T-wave inversion, QTC 411) Discharge Plan Discharge Clinical Impression: Asthma with acute exacerbation, Bronchitis Patient Disposition: Home, Self-Care Instructions: Asthma (ED), Acute Bronchitis (ED) Additional Instructions: Please follow-up with your primary care physician tomorrow. If you have any worsening or new symptoms, please return to the emergency room or call 911 Prescriptions: New azithromycin 250 mg tablet 250 mg PO DAILY Qty: 6 RF: 0 prednisone 50 mg tablet 50 mg PO DAILY Qty: 4 RF: 0 No Action albuterol sulfate 2.5 mg /3 mL (0.083 %) solution for nebulization 2.5 mg inhalation Q4-6H PRN (Reason: shortness of breath or wheezing) Qty: 180 RF: 0 albuterol sulfate [Ventolin HFA] 90 mcg/actuation HFA aerosol inhaler 2 puff inhalation Q4-6H PRN (Reason: shortness of breath or wheezing) Qty: 8.5 RF: 1 prednisone 20 mg tablet 40 mg PO DAILY Qty: 10 RF: 0 montelukast [Singulair] 10 mg tablet 10 mg PO DAILY Qty: 30 RF: 0 cyclobenzaprine 10 mg tablet 10 mg PO TID PRN (Reason: muscle spasm) Qty: 14 RF: 0 lidocaine 4 % adhesive patch,medicated 1 patch topical DAILY PRN (Reason: pain) Qty: 10 RF: 0
--- NOTE | 2021-03-07 21:08 | ECG_ITS ---
Test Reason : SOB Blood Pressure : / mmHG Vent. Rate : 096 BPM Atrial Rate : 096 BPM P-R Int : 166 ms QRS Dur : 078 ms QT Int : 326 ms P-R-T Axes : 069 021 038 degrees QTc Int : 411 ms Normal sinus rhythm Nonspecific T wave abnormality Abnormal ECG When compared with ECG of 13-FEB-2021 11:45, Nonspecific T wave abnormality now evident in Lateral leads Referred By: Nubia Campa Electronically Signed By:Shaun Le
[2021-03-07] MEDS: Albuterol Sulfate (0.083%) 2.5 MG/3 ML VIAL.NEB 10 MG INHALE (21:22)
[2021-03-07 21:27] VITALS: PULSE 96; O2SAT 95
[2021-03-07 21:31] LABS: MANUAL DIFF FLAG NO
[2021-03-07 21:35] LABS: Basophils Absolute Auto 0.1 X10*3/uL (0.0-0.2); Basophils Percent Auto 0.3 % (0-2); Eosinophils Absolute Auto 0.5 X10*3/uL (0.0-0.4); Eosinophils Percent Auto 2.4 % (0-4); Hemoglobin 12.5 g/dl (14.0-18.0); Imm Gran Pct Auto 0.4 % (0.0-0.4); Lymphocytes Absolute Auto 1.7 X10*3/uL (1.2-4.9); Lymphocytes Percent Auto 7.7 % (20-40); Mean Corpuscular HGB Conc 31.3 g/dl (31.0-36.0); Mean Corpuscular Hemoglobin 27.4 pg (27.0-33.0); Mean Corpuscular Volume 87.7 fL (80-98); Mean Platelet Volume 9.8 fL (9.4-12.4); Monocytes Percent Auto 4.3 % (2-11); Neutrophils Absolute Auto 18.9 X10*3/uL (2.0-8.3); Neutrophils Percent Auto 84.9 % (45-73); Platelet Count 258 X10*3/uL (160-400); Red Blood Count 4.56 X10*6/uL (4.60-5.80); Red Cell Distribution Width 14.6 % (11.0-16.0); White Blood Count 22.3 X10*3/uL (4.8-10.8)
[2021-03-07 21:45] LABS: COVID-19 Test Negative (Negative); IDNOW Serial# 9DD0AD1C
--- NOTE | 2021-03-07 21:52 | PC.NURSE ---
lactic 2.5 MD notified
[2021-03-07] MEDS: methylPREDNISolone Sod Succ 125 MG/2 ML VIAL IVPUSH (21:53)
[2021-03-07] MEDS: 0.9 % Sodium Chloride 1,000 ML 999 ML IVCONT ×2 (21:53→21:58)
[2021-03-07 21:54] LABS: Anion Gap 14 (12-20); Blood Urea Nitrogen 11 mg/dL (9-16); Calcium 9.5 mg/dL (8.4-10.2); Carbon Dioxide 27 mmol/L (22-29); Chloride 103 mmol/L (96-108); Creatinine Clr Calc Pharmacy 94.9; Estimated Glomerular Filt Rate > 60; Glucose Random 95 mg/dL (60-115); Potassium 4.3 mmol/L (3.3-5.1); Sodium 140 mmol/L (135-145)
[2021-03-07 21:57] LABS: Lactic Acid 2.5 mmol/L (0.5-2.0)
[2021-03-07] MEDS: levoFLOXacin/D5W 500 MG/100 ML PIGGYBACK 100 MG IV (21:58)
[2021-03-07 22:00] LABS: B Type Natriuretic Peptide < 10 pg/mL (<100); Troponin-I High Sensitivity < 3.5 ng/L (<3.5-35.0)
[2021-03-07 23:24] LABS: Reflex Lactate? Lactic Acid Added
[2021-03-07 23:53] LABS: ~Lactic Acid-LAB USE ONLY 1.9 mmol/L (0.5-2.0)
[2021-03-08] VITALS: BP 157/73; PULSE 98; RESP 16; TEMP 36.7; O2SAT 95
[2021-03-08 00:09] LABS: Glucose Urine UA NEG (NEG); Leukocyte Esterase Urine NEG (NEG); Nitrite Urine NEG (NEG); Specific Gravity - Urine <= 1.005 (1.005-1.025); Urine Blood NEG (NEG); Urine Ketones NEG (NEG); Urine Protein NEG (NEG-TRACE)
[2021-03-08 00:14] LABS: Appearance Urine CLEAR; Color Urine COLORLESS
[2021-03-08 00:25] LABS: Bacteria Urine TRACE /LPF; RBC Urine 0 /HPF (0); Squamous Epithelial Cell Urine TRACE /LPF; WBC Urine 0 /HPF (0-4)
[2021-03-08] MEDS: Albuterol Sulfate (0.083%) 2.5 MG/3 ML VIAL.NEB 10 MG INHALE (01:14)
[2021-03-08 01:15] VITALS: PULSE 90; O2SAT 96
--- NOTE | 2021-03-08 01:56 | PC.NURSE ---
pt ambulated per MD, maintained 02 sat at 98% on room air. denied feeling short of breath while ambulating. MD notified
[2021-03-08 02:00] VITALS: BP 154/74; PULSE 101; RESP 16; TEMP 37.2; O2SAT 95
== END 2021-03-08 02:38 | disposition home or self-care (01) ==
PROVIDERS: Emergency Provider Emergency Medicine
DX: J45.901 Unspecified asthma with (acute) exacerbation (principal); J20.9 Acute bronchitis, unspecified; Z20.822 Contact with and (suspected) exposure to COVID-19; Z79.899 Other long term (current) drug therapy
CPT/HCPCS: 36415; 71045; 71250; 80048; 81001; 83605; 83880; 84484; 85025; 87040; 87086; 87635; 93005; 94640; 94644; 94645; 96365; 96375; 99284; J1956; J2930

== ENCOUNTER → 2021-06-08 13:38 | Outpatient (BNVA) | payer MEDICAID, SELFPAY | PROVIDERS: Visit Provider Internal Medicine | DX: E66.01 Morbid (severe) obesity due to excess calories (principal); G47.33 Obstructive sleep apnea (adult) (pediatric); J45.909 Unspecified asthma, uncomplicated | CPT/HCPCS: 99202 ==

== ENCOUNTER → 2021-08-03 13:25 | Outpatient (REF) | payer MEDICAID, SELFPAY | LOC: HO.SL 13:25 | PROVIDERS: Visit Provider Internal Medicine | DX: E66.01 Morbid (severe) obesity due to excess calories (principal); G47.33 Obstructive sleep apnea (adult) (pediatric); R40.0 Somnolence | CPT/HCPCS: 95806 ==

== ENCOUNTER 2022-04-30 10:47 | Emergency (ER) | payer MEDICAID, SELFPAY | END 2022-04-30 14:47 | disposition left against medical advice (07) | LOC: HO.ED 14:44 | PROVIDERS: Emergency Provider Emergency Medicine; PCP Internal Medicine Geriatric Medicine | DX: R50.9 Fever, unspecified (principal) ==

== ENCOUNTER 2022-07-07 11:04 | Outpatient (REF) | payer MEDICAID, SELFPAY ==
--- NOTE | ~2022-07-07 | XR_ITS ---
EXAMINATION: XR KNEE, LEFT CLINICAL INFORMATION: Left knee pain. COMPARISON: None TECHNIQUE: Four views of the left knee. FINDINGS: The patella is situated slightly high. Some posterior patellar osteophytes are seen. The medial and lateral joint spaces are well maintained. No joint effusion is present. XR/XR knee LT 4V IMPRESSION: Mild degenerative changes in the patellofemoral compartment.
== END 2022-07-07 11:05 | disposition home or self-care (01) ==
LOC: HO.XRAY 11:04
PROVIDERS: Visit Provider Internal Medicine Geriatric Medicine
DX: M25.562 Pain in left knee (principal)
CPT/HCPCS: 73564

== ENCOUNTER 2022-10-23 10:57 | Outpatient (REF) | payer MEDICAID, SELFPAY ==
--- NOTE | ~2022-10-23 | XR_ITS ---
EXAMINATION: XR KNEE, RIGHT XR KNEE STANDING CLINICAL INFORMATION: Pain COMPARISON: None TECHNIQUE: 2 views of the right knee single frontal view of the bilateral standing knees. FINDINGS: No acute visible fracture or dislocation. Ossific densities along the right tibial eminence possibly representing sequela of [place]-Schlatter's disease. Very slight enthesopathy at the patellar tendon origination site. Joint spaces and alignment are otherwise maintained. Soft tissues are unremarkable. XR/XR knee standing BI IMPRESSION: 1. No acute visible fracture or dislocation. 2. Ossific densities along the right tibial eminence possibly representing sequela of [place]-Schlatter's disease. 3. Very slight enthesopathy at the patellar tendon origination site.
--- NOTE | ~2022-10-23 | XR_ITS ---
EXAMINATION: XR KNEE, RIGHT XR KNEE STANDING CLINICAL INFORMATION: Pain COMPARISON: None TECHNIQUE: 2 views of the right knee single frontal view of the bilateral standing knees. FINDINGS: No acute visible fracture or dislocation. Ossific densities along the right tibial eminence possibly representing sequela of [place]-Schlatter's disease. Very slight enthesopathy at the patellar tendon origination site. Joint spaces and alignment are otherwise maintained. Soft tissues are unremarkable. XR/XR knee RT 2V IMPRESSION: 1. No acute visible fracture or dislocation. 2. Ossific densities along the right tibial eminence possibly representing sequela of [place]-Schlatter's disease. 3. Very slight enthesopathy at the patellar tendon origination site.
== END 2022-10-23 10:58 | disposition home or self-care (01) ==
LOC: HO.HOSX 10:57
PROVIDERS: Visit Provider Physician Assistant
DX: M23.91 Unspecified internal derangement of right knee (principal)
CPT/HCPCS: 20610; 73560; 73565; 99202; J1040

== ENCOUNTER → 2023-01-24 14:27 | Outpatient (BNVA) | payer MEDICAID, SELFPAY | PROVIDERS: PCP Internal Medicine Geriatric Medicine; Visit Provider Physician Assistant Surgical ==

== ENCOUNTER → 2023-03-15 14:39 | Outpatient (BNVA) | payer MEDICAID, SELFPAY | PROVIDERS: PCP Internal Medicine Geriatric Medicine; Visit Provider Physician Assistant Surgical | DX: E66.01 Morbid (severe) obesity due to excess calories (principal); G47.33 Obstructive sleep apnea (adult) (pediatric); M23.91 Unspecified internal derangement of right knee; I10 Essential (primary) hypertension; Z68.42 Body mass index [BMI] 45.0-49.9, adult | CPT/HCPCS: 99205 ==

== ENCOUNTER 2023-03-15 14:41 | Outpatient (AMB) | payer MEDICAID, SELFPAY ==
--- NOTE | 2023-03-15 14:41 | A.OFFVIS_ITS ---
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 Allergies No Known Allergies Allergy (Verified 03/15/23 14:44) Medication List - Last Reconciled 03/15/23 by ASAEL Falcon albuterol sulfate 90 mcg/actuation (Ventolin HFA) 2 puffs inhalation Q4-6H PRN albuterol sulfate 2.5 mg (3 mL) inhalation Q4-6H PRN amlodipine 5 mg PO DAILY losartan 100 mg PO QPM losartan 10 mg PO DAILY mometasone-formoterol 200-5 mcg/actuation (Dulera) 2 puffs inhalation montelukast (Singulair) 10 mg PO DAILY HPI HPI Comments History of Present Illness Details [place] [facility] [place]. His goal is to lose weight and achieve a healthy lifestyle as well as to improve, if not resolve, obesity related medical conditions. Highest weight to date was 300. Current weight is 281.4 with a BMI of 45.4.? He has tried multiple methods of weight loss including diet pills without permanent results. He lives with his girlfriend. 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 He wakes at: 3am, and goes to bed at 7pm.? Dinner is at 4-5pm. Breakfast: 5:30am- pastrami and cheese or turkey and cheese sandwich and a glass of juice AM snack: none Lunch: none PM snack: sometimes a granola bar, or a donut Dinner: Salads from a restaurant with tuna or chicken, or French food After dinner: junior high school teacher or ice cream Other snacks: other kinds of sandwiches Liquids: occasional bottle of Sprite Alcohol/marijuana/tobacco intake: denies Exercise: walks dog 5-10min per day, no gym membership, has an elliptical? GERD score: 1 CINDY score: 1 ESS score: 23 QOL score: 141 [facility] Medical History (Updated 03/15/23 @ 14:50 by ASAEL Falcon) Asthma Asthma Bronchitis Hard of hearing HTN (hypertension) Morbid obesity TAMIA (obstructive sleep apnea) Somnolence, daytime Surgical History Hx of colonoscopy Hx of nasal polypectomy Family History Sister Ovarian cancer Father Lung cancer Mother Brain cancer Brother COPD (chronic obstructive pulmonary disease) Social History Household Members: Spouse Housing: Apartment Are you a primary healthcare project manager to a significant other at home: No Do you presently have visiting nurse or other home services: No Alcohol intake: former Patient Tobacco Use Status: Never used Tobacco service: No Current occupational status: employed Current occupation: [employer] Physical Exam Const General: cooperative, comfortable and no acute distress Resp Effort & Inspection: normal respiratory effort Auscultation: clear to auscultation bilaterally Cardio Rate: regular rate Rhythm: regular rhythm GI Other: soft, nontender, nondistended, no hernias or masses, +BS Extrem General: Yes no calf tenderness and No edema Assessment & Plan Assessment & Plan (1) Morbid obesity: Code(s): E66.01 - Morbid (severe) obesity due to excess calories (2) TAMIA (obstructive sleep apnea): Code(s): G47.33 - Obstructive sleep apnea (adult) (pediatric) (3) Asthma: Code(s): J45.909 - Unspecified asthma, uncomplicated (4) Internal derangement of right knee: Code(s): M23.91 - Unspecified internal derangement of right knee (5) HTN (hypertension): Code(s): I10 - Essential (primary) hypertension Plan This is a 52 yo male who will start our SWL program to prepare for bariatric surgery.? Blood work, h pylori , CXR, ECG, Abd US and UGI have been ordered. He is being scheduled for RD and BH initial consultations. He will start SWL classes and watch at least # 1 and # 2 before next appointment. ? Adequate sleep of 7-8 hours per night discussed ?? Pt will purchase body composition analyzer scale (Mannie Newell recommended) and check weight weekly. The best time to do this is first thing in the morning after going to the bathroom. 1. Nutritional counseling. Premier premade shakes: 2 per day, 5:30am-7:30am and 12pm-2pm. Fitcrunch or Zone Perfect bars: 2 protein bars per day, 9am-11am and 5pm-7pm. Dinner at 4pm: 3oz/6 forks of protein and 6-8oz/12-16 forks of salad/vegetables. If you work late and end up eating dinner after you finish work at 7pm, have your second protein bar at 4-6pm and dinner at 7pm when you get home. Meal to include lean meat (beef, fish, pork, turkey, chicken), cooked vegetables or a salad with olive oil and/or fruits (berries, pears, apples, kiwi). Avoid salt, breads, potatoes, rice, pasta, desserts.? Try to drink 64 oz of water daily and avoid soda and juices. ?2. Each shake would be drunk slowly, like coffee in a period of 2 hours. ?3. Cut each bar in 4 pieces and eat each piece in 30 min? to make each bar last 2 hours. ?4. I emphasized the importance of measuring accurately the food portion and measure it carefully when serving the food on the plate ?5. The meal portions include 6 full-size forks of meat and 12/16 full-size forks of salad. You always eat the meat portion but you can replace up to half of the forks of salad/vegetables with rice, potatoes or pasta, or a fruit? if you like. The less you do it the better weight loss will be. ?6. One full-size fork is what can be scooped on the fork without falling aside and not what can be bit with the fork. Use regular forks like those you find in a typical restaurant. ?7.? Please send me weight measurements as soon as possible and then once a week. Always include your diet and exercise plan. Alternatively come weekly at the office for weight checks and send me the measurements. ?8. Start elliptical with an incline of 2.0 and resistance of 4.0. Increase resistance by 1 every 3 min to a max resistance of 10.0, and repeat cycles for 300 calories. Repeat process to a goal of 300 calories.? Goal of 2000 calories burned or more weekly.? Tracking calories is essential. 9. Alternatively start walking outside daily, tracking calories with a goal of 300 calories per day, daily. You can download the myriam [employer] which can track you time, distance and calories while walking outside.? You press start in the myriam when you start and then stop when you are finished.?? 10. Goal is to lose at least 1.5-2lbs per week 11. Goal to lose 10% of your weight before surgery, which is about 28 lbs. Ultimate weight goal: 253 lbs before surgery Patient is morbidly obese and is not considered stable at this time. I spent a total of 60 minutes reviewing/updating records, examining the patient and counseling the patient on weight management as detailed above. Orders: Orders Vitamin B12 and Folate Today E66.01 - Morbid (severe) obesity due to excess calories, G47.33 - Obstructive sleep apnea (adult) (pediatric), I10 - Essential (primary) hypertension Comprehensive Met. Panel Today E66.01 - Morbid (severe) obesity due to excess calories, G47.33 - Obstructive sleep apnea (adult) (pediatric), I10 - Essential (primary) hypertension C Reactive Protein Today E66.01 - Morbid (severe) obesity due to excess calories, G47.33 - Obstructive sleep apnea (adult) (pediatric), I10 - Essential (primary) hypertension Ferritin Today E66.01 - Morbid (severe) obesity due to excess calories, G47.33 - Obstructive sleep apnea (adult) (pediatric), I10 - Essential (primary) hypertension Hemoglobin A1c Today E66.01 - Morbid (severe) obesity due to excess calories, G47.33 - Obstructive sleep apnea (adult) (pediatric), I10 - Essential (primary) hypertension Insulin Today E66.01 - Morbid (severe) obesity due to excess calories, G47.33 - Obstructive sleep apnea (adult) (pediatric), I10 - Essential (primary) hypertension IRON PROFILE Today E66.01 - Morbid (severe) obesity due to excess calories, G47.33 - Obstructive sleep apnea (adult) (pediatric), I10 - Essential (primary) hypertension Lipid Panel Today E66.01 - Morbid (severe) obesity due to excess calories, G47.33 - Obstructive sleep apnea (adult) (pediatric), I10 - Essential (primary) hypertension PTHI Today E66.01 - Morbid (severe) obesity due to excess calories, G47.33 - Obstructive sleep apnea (adult) (pediatric), I10 - Essential (primary) hypertension TSH reflex Free T4 Today E66.01 - Morbid (severe) obesity due to excess calories, G47.33 - Obstructive sleep apnea (adult) (pediatric), I10 - Essential (primary) hypertension Vitamin A Today E66.01 - Morbid (severe) obesity due to excess calories, G47.33 - Obstructive sleep apnea (adult) (pediatric), I10 - Essential (primary) hypertension Vitamin B1 Today E66.01 - Morbid (severe) obesity due to excess calories, G47.33 - Obstructive sleep apnea (adult) (pediatric), I10 - Essential (primary) hypertension Vitamin D 25-OH Total Today E66.01 - Morbid (severe) obesity due to excess calories, G47.33 - Obstructive sleep apnea (adult) (pediatric), I10 - Essential (primary) hypertension Zinc Today E66.01 - Morbid (severe) obesity due to excess calories, G47.33 - Obstructive sleep apnea (adult) (pediatric), I10 - Essential (primary) hypertension ECG 12 lead EKG Today E66.01 - Morbid (severe) obesity due to excess calories, G47.33 - Obstructive sleep apnea (adult) (pediatric), I10 - Essential (primary) hypertension FL upper GI w air Today E66.01 - Morbid (severe) obesity due to excess calories, G47.33 - Obstructive sleep apnea (adult) (pediatric), I10 - Essential (primary) hypertension Complete Blood Count Auto Diff Today E66.01 - Morbid (severe) obesity due to excess calories, G47.33 - Obstructive sleep apnea (adult) (pediatric), I10 - Essential (primary) hypertension H Pylori Breath Test Today E66.01 - Morbid (severe) obesity due to excess calories, G47.33 - Obstructive sleep apnea (adult) (pediatric), I10 - Essential (primary) hypertension US abdomen comp w elastography Today E66.01 - Morbid (severe) obesity due to excess calories, G47.33 - Obstructive sleep apnea (adult) (pediatric), I10 - Essential (primary) hypertension XR chest 2V Today E66.01 - Morbid (severe) obesity due to excess calories, G47.33 - Obstructive sleep apnea (adult) (pediatric), I10 - Essential (primary) hypertension Referrals Behavioral Health Referral E66.01 - Morbid (severe) obesity due to excess calories, G47.33 - Obstructive sleep apnea (adult) (pediatric), I10 - Essential (primary) hypertension Nutrition/Dietitian Referral E66.01 - Morbid (severe) obesity due to excess calories, G47.33 - Obstructive sleep apnea (adult) (pediatric), I10 - Essential (primary) hypertension Coding Level of Care Code New Pt Level 5 (66645) Diagnoses Morbid obesity E66.01 TAMIA (obstructive sleep apnea) G47.33 Asthma J45.909 Internal derangement of right knee M23.91 HTN (hypertension) I10
[2023-03-15 14:46] VITALS: BP 150/72; PULSE 93; TEMP 36.3; O2SAT 95; BMI 45.4
== END 2023-03-15 15:43 | disposition home or self-care (01) ==
PROVIDERS: PCP Internal Medicine Geriatric Medicine; Visit Provider Physician Assistant Surgical
DX: E66.01 Morbid (severe) obesity due to excess calories (principal); G47.33 Obstructive sleep apnea (adult) (pediatric); J45.909 Unspecified asthma, uncomplicated; M23.91 Unspecified internal derangement of right knee; I10 Essential (primary) hypertension
CPT/HCPCS: 99205

== ENCOUNTER 2023-03-22 14:15 | Outpatient (REF) | payer MEDICAID, SELFPAY ==
--- NOTE | ~2023-03-22 | US_ITS ---
EXAMINATION: US COMPLETE ABDOMEN WITH LIVER ELASTOGRAPHY CLINICAL INFORMATION: Primary hypertension and obesity. COMPARISON: None available. TECHNIQUE: Real-time imaging of the abdominal viscera. Noninvasive ultrasound liver fibrosis assessment is performed using Alina ElastPQ point quantification shear wave elastography (2D-SWE) with a C5-2 MHz transducer. Multiple elastography samples are obtained. FINDINGS: PANCREAS: Normal. The visualized pancreatic neck and body are normal in appearance. The remainder of the pancreas is obscured from visualization by the overlying bowel gas. ABDOMINAL AORTA: The proximal, middle, and distal aortic segments are normal in caliber. INFERIOR VENA CAVA: Visualized portions are normal. LIVER: There is hepatomegaly. The liver demonstrates normal contour and increased echogenicity. No focal lesion or intrahepatic biliary duct dilatation. The right lobe measures 17.8 cm in length. The left lobe measures 12.9 cm in length. Portal flow is towards the liver (hepatopetal). Shear wave liver elastography median stiffness is 1.21 m/s (reference: normal median stiffness is 1.3 m/s or less). IQR/median stiffness to assess sampling precision is 0.11 (reference: good quality data set is IQR/median stiffness of 0.15 or less). GALLBLADDER: There is fundal adenomyomatosis, with ringdown artifact. The gallbladder is physiologically distended without evidence of stones, sludge, polyps, wall thickening or pericholecystic fluid. COMMON BILE DUCT: Normal in caliber measuring 0.3 cm in diameter. RIGHT KIDNEY: At the interpolar aspect, 1.8 cm and 0.7 cm in maximal diameter anechoic, simple cysts are seen. These are benign and requires no imaging follow-up. No hydronephrosis. No renal calculi or focal parenchymal lesions. The kidney measures 11.7 cm in maximum dimension. LEFT KIDNEY: Normal. No hydronephrosis. No renal calculi or focal parenchymal lesions. The kidney measures 12.5 cm in maximum dimension. SPLEEN: Normal. The spleen measures 12.6 cm in maximum dimension. FREE FLUID: None. US/US abdomen comp w elastography IMPRESSION: 1. There is generalized increase in hepatic echotexture, consistent with fatty infiltration or hepatocellular disease. Please correlate clinically. No focal hepatic mass or intrahepatic biliary dilatation is seen. 2. There is mild hepatomegaly. 3. Liver elastography: Measurements are consistent with a high probability of normal liver stiffness. 4. There is gallbladder adenomyomatosis. 5. There are benign, simple right renal cysts. REFERENCE: Society of Radiologists in Ultrasound Liver Stiffness Thresholds (2020): LIVER STIFFNESS THRESHOLDS: *Liver Stiffness equal or less than 1.3 m/s: High probability of being normal. *Liver Stiffness less than 1.7 m/s: In the absence of other known clinical signs, rules out compensated advanced chronic liver disease. *Liver Stiffness 1.7-2.1 m/s: Suggestive of compensated advanced chronic liver disease but need further test for confirmation. *Liver Stiffness over 2.1 m/s: Rules in compensated advanced chronic liver disease. *Liver Stiffness over 2.4 m/s: Suggestive of clinically significant portal hypertension. QUALITY OF DATA SET: *IQR/Median value equal or less than 0.15 implies a quality data set. *IQR/Median value over 0.15 implies a poor quality data set. SIGNIFICANT CHANGE FROM PRIOR EXAM: Significant change if liver stiffness measurement is 10% or greater from prior exam. OTHER CONSIDERATIONS: The stage of liver fibrosis may be overestimated in the setting of acute hepatitis, liver inflammation, elevated liver function tests, hepatic vascular congestion, obstructive cholestasis, non-fasting state, and infiltrative diseases such as amyloidosis and lymphoma. In some patients with NAFLD, the liver stiffness thresholds for compensated advanced chronic liver disease may be lower. In causes other than viral hepatitis and NAFLD, liver stiffness thresholds are not well established.
--- NOTE | ~2023-03-22 | XR_ITS ---
EXAMINATION: XR CHEST CLINICAL INFORMATION: Essential hypertension COMPARISON: None available. TECHNIQUE: 2 views of the chest were obtained. FINDINGS: No significant abnormality is noted involving the heart, lungs, mediastinum, bony thorax or soft tissues. XR/XR chest 2V IMPRESSION: Unremarkable chest examination.
[2023-03-22 15:25] LABS: MANUAL DIFF FLAG NO
[2023-03-22 18:10] LABS: Basophils Absolute Auto 0.1 X10*3/uL (0.0-0.2); Basophils Percent Auto 0.5 % (0-2); Eosinophils Absolute Auto 0.6 X10*3/uL (0.0-0.4); Eosinophils Percent Auto 4.7 % (0-4); Hemoglobin 12.4 g/dl (14.0-18.0); Imm Gran Abs Auto 0.06 X10*3/uL (0.00-0.03); Imm Gran Pct Auto 0.5 % (0.0-0.4); Lymphocytes Absolute Auto 3.2 X10*3/uL (1.2-4.9); Lymphocytes Percent Auto 27.1 % (20-40); Monocytes Absolute Auto 0.8 X10*3/uL (0.1-1.2); Monocytes Percent Auto 6.4 % (2-11); Neutrophils Absolute Auto 7.2 x10*3/uL (2.0-8.3); Neutrophils Percent Auto 60.8 % (45-73); Platelet Count 308 X10*3/uL (160-400); Red Cell Distribution Width 13.2 % (11.0-16.0); White Blood Count 11.8 X10*3/uL (4.8-10.8)
[2023-03-22 18:27] LABS: Estimated Average Glucose 128 mg/dL; Hemoglobin A1c % 6.1 %
[2023-03-22 18:47] LABS: Alanine Aminotransferase 39 U/L (0-40); Albumin Level 4.3 g/dL (3.5-5.0); Alkaline Phosphatase 80 U/L (39-117); Anion Gap 17 (12-20); Aspartate Amino Transferase 42 U/L (5-37); Bilirubin Total 0.6 mg/dL (0.0-1.0); Blood Urea Nitrogen 19 mg/dL (9-16); C Reactive Protein 0.42 mg/dL (< or = 0.50); Calcium 9.9 mg/dL (8.4-10.2); Carbon Dioxide 24 mmol/L (22-29); Chloride 100 mmol/L (96-108); Cholesterol 163 mg/dL; Estimated Glomerular Filt Rate > 60; Glucose Random 78 mg/dL (60-115); HDL Cholesterol 38 mg/dL; Iron 71 mcg/dL (45-160); LDL Cholesterol Calculated 97 mg/dl; Percent Iron Saturation 22 % (15-50); Potassium 3.4 mmol/L (3.3-5.1); Sodium 138 mmol/L (135-145); Total Iron Binding Capacity 319 mcg/dL (228-428); Total Protein 7.8 g/dL (6.5-8.0); Triglycerides 140 mg/dL; Unsaturated Iron Binding 248 ug/dL
[2023-03-22 19:02] LABS: Ferritin 599 ng/mL (20-250); Insulin 19 uU/mL (2-29); Vitamin D 25-OH Total 33.7 ng/mL (>30)
[2023-03-22 19:40] LABS: Vitamin B12 763 pg/mL (200-900)
[2023-03-26 13:22] LABS: Calcium (PTHI) 9.7 mg/dL (8.6-10.3); PTHI 23 pg/mL (16-77)
[2023-03-29 02:53] LABS: Vitamin A 40 mcg/dL (38-98)
[2023-03-29 15:58] LABS: Vitamin B1 8 nmol/L (8-30)
[2023-03-31 01:53] LABS: Zinc 85 mcg/dL (60-130)
== END 2023-03-22 14:16 | disposition home or self-care (01) ==
LOC: HO.US 14:15
PROVIDERS: PCP Internal Medicine Geriatric Medicine; Visit Provider Physician Assistant Surgical
DX: I10 Essential (primary) hypertension (principal); G47.33 Obstructive sleep apnea (adult) (pediatric); E66.01 Morbid (severe) obesity due to excess calories
CPT/HCPCS: 36415; 71046; 76705; 76981; 80053; 80061; 82306; 82607; 82728; 82746; 83036; 83525; 83540; 83970; 84425; 84443; 84590; 84630; 85025; 86140

== ENCOUNTER 2023-03-27 14:56 | Outpatient (AMB) | payer MEDICAID, SELFPAY ==
[2023-03-27 15:04] VITALS: BP 140/80; PULSE 84; O2SAT 97; BMI 46.5
--- NOTE | 2023-03-27 15:04 | A.OFFVIS_ITS ---
Intake Vital Signs 03/27/23 15:04 Height 5 ft 6 in Weight 288 lb BMI 46.5 BP 140/80 H Blood Pressure Location Lt brachial Position Sitting Pulse 84 Pulse Source Pulse Oximeter Pulse Oximetry (%) 97 Oxygen Delivery Method Room Air Intake Visit Reasons: Asthma Intake Note: pt is here for issues with reoccurring bronchitis, coughing, wheezing, short of breath with exertion, laying in bed when he starts coughing and feels like he could pass out, going on for about 2 months. Devil Tender Required: No Allergies No Known Allergies Allergy (Verified 03/27/23 15:13) Medication List - Last Reconciled 03/27/23 by Carmen Simpson MD albuterol sulfate 90 mcg/actuation (Ventolin HFA) 2 puffs inhalation Q4-6H PRN albuterol sulfate 2.5 mg (3 mL) inhalation Q4-6H PRN amlodipine 5 mg PO DAILY blood pressure kit-extra large As directed chlorthalidone 25 mg PO DAILY hydralazine 10 mg PO BID losartan 100 mg PO QPM metoprolol succinate ER 25 mg PO QAM mometasone-formoterol 200-5 mcg/actuation (Dulera) 2 puffs inhalation montelukast (Singulair) 10 mg PO DAILY tadalafil (Cialis) 20 mg PO DAILY PRN umeclidinium 62.5 mcg/actuation (Incruse Ellipta) 1 inh inhalation QAM Do you need a note to return to daycare/school/sports/work: No HPI Asthma HPI Details This 52 years old gentleman has morbid obesity, He was diagnosed to have obstructive sleep apnea in July 2021 with home- based sleep study. Did have the sleep apnea with total sleep time AHI 13. It was considered mild . He did not come back for follow-up to me but try to lose some weight and has been avoiding. to sleep in supine position. He still gets periods of shortness of breath at night which I think is due to obstructive sleep apnea. He has very poor., fragmented type of sleep wakes up in the morning on refreshed and remains. Tired during the daytime He also gets short of breath very easily, , has occasional wheezing . Has intermittent cough without much expectoration Patient is being treated for chronic bronchial asthma, he is on Dulera 200-5 2 puffs b.i.d., and uses Ventolin 2 puffs Q 4-6 hours p.r.n., which he ends up using once or twice a day. Patient was supposed to have pulmonary function test, however, he has not come back to me for follow-up since his initial visit in 2019. He claims that that he had pulmonary function test at [facility], of which we do not have any record. Will try to get the results from [facility] , if not available then he would to have repeat pulmonary function test. Weight quispe there has been no progress he remains morbidly obese. He has recently joined the weight management [facility] at [facility] Medical History Asthma Asthma Bronchitis Hard of hearing HTN (hypertension) Morbid obesity TAMIA (obstructive sleep apnea) Somnolence, daytime Surgical History Hx of colonoscopy Hx of nasal polypectomy Family History Sister Ovarian cancer Father Lung cancer Mother Brain cancer Brother COPD (chronic obstructive pulmonary disease) Social History Household Members: Spouse Housing: Apartment Are you a primary transitions rn care coordinator to a significant other at home: No Do you presently have visiting nurse or other home services: No Alcohol intake: former Patient Tobacco Use Status: Never used Tobacco service: No Current occupational status: employed Current occupation: [employer] Review of Systems Const All systems reviewed & are unremarkable except as noted in HPI and below Eyes Reports no additional complaints ENT Reports nasal congestion (OFF AND ON) Card Denies chest pain, Denies irregular heart rhythm and Denies leg edema Resp Reports as per HPI GI Reports no additional complaints Reports no additional complaints Musc Reports back pain (OFF AND ON) Skin/Breast Reports system reviewed and no additional complaints, except as documented Neuro Reports no additional complaints Psych Reports no additional complaints Endo Reports no additional complaints Physical Exam Vital Signs: Last Vital Signs Pulse 84 03/27/23 15:04 BP 140/80 H 03/27/23 15:04 Pulse Ox 97 03/27/23 15:04 Oxygen Delivery Method Room Air 03/27/23 15:04 BMI result Body Mass Index 46.5 Const General: comfortable, no acute distress, alert, awake and other (NOTICCBLY SLEEPY DURING CONVERSATION) Orientation/consciousness: patient oriented x3 HEENT Head: Yes normal to inspection General nose exam: No nasal polyps present and No nasal discharge present Face and sinus: Yes sinuses nontender Mouth: oropharynx abnormals (VERY CROWDED AND NARROW, MALLAMPATI CLASS 4) Throat: Yes posterior oropharynx normal Eyes General: appearance normal, both eyes and all related structures Neck Neck: Yes normal visual inspection, Yes no lymphadenopathy, Yes trachea midline, Yes no JVD and Yes other (NECK CIRCUMFERENCE 20 IN) Thyroid: Thyroid normal Chest Chest palpation & inspection: normal inspection of the chest, normal palpation of entire chest wall and no tenderness Resp Other: PERCUSSION NOTE NOT PERCEPTIBLE DUE TO THICK CHEST WALL. BREATH SOUNDS ARE DISTANT, BUT NO WHEEZES OR RHONCHI HEARD AT THIS TIME. Cardio Palpation: PMI not normal (NOT PALPABLE) Rate: regular rate Rhythm: regular rhythm Heart sounds: no gallops and no murmurs GI Palpation (GI): Soft to palpation, Tenderness to palpation present (GI), No hepatosplenomegaly present, Palpable mass present and Other GI palpation findings present (ABDOMEN IS GROSSLY OBESE AND PROTUBERANT) Auscultation: normal bowel sounds Back/Spine/Pelvis Thoracic/Lumbar Spine: thoracic and lumbar spine normal to inspection and thoraco-lumbar ROM limited Skin General skin exam: no rashes or lesions noted Neuro General: patient oriented x3 and no focal motor deficits Cranial nerves: Yes CN's II-XII intact bilaterally Extrem General: Yes normal to inspection, Yes no clubbing, cyanosis or edema and Yes no calf tenderness Psych Appearance: grossly normal and well kempt Speech and movement: Normal speech and movement present Results Reviewed Results Reviewed: Home-based sleep study on 08/03/2021 Total sleep time AHI 13, most of the obstructive events were in left lateral position and prone position. Snoring for 17% of the sleep time there was no significant nocturnal hypoxemia. Assessment & Plan Assessment & Plan (1) Morbid obesity: Comment: Continues to be morbidly obese. He is not able to do much exercise, S a good thing that he has join the weight management program. Code(s): E66.01 - Morbid (severe) obesity due to excess calories (2) TAMIA (obstructive sleep apnea): Comment: Patient does have obstructive sleep apnea. Clinically I think it has gotten worse since his last sleep study in July 2021. As this study is old, he would need a new up to date sleep study to determine if he can benefit from CPAP therapy. Code(s): G47.33 - Obstructive sleep apnea (adult) (pediatric) (3) Somnolence, daytime: Comment: Daytime somnolence and fatigue is probably due to untreated sleep apnea, morbid obesity and deconditioning. Code(s): R40.0 - Somnolence (4) Asthma: Comment: He has history of bronchial asthma. His current medical regimen seems to be adequate. Shortness of breath on exertion is more due to his morbid obesity. Episodes of shortness of breath at night or most likely related to his obstructive sleep apnea. He is advised to continue the present regimen. [place] : Dulera 200-5 2 puffs b.i.d. ( 12 hours apart) Ventolin 2 puffs Q 4-6 hours p.r.n. only if any wheezing. Code(s): J45.909 - Unspecified asthma, uncomplicated Orders: Orders 2 RT home sleep study Today E66.01 - Morbid (severe) obesity due to excess calories, G47.33 - Obstructive sleep apnea (adult) (pediatric), R40.0 - Somnolence Coding Level of Care Code Est Pt Level 4 (08741) Diagnoses Morbid obesity E66.01 TAMIA (obstructive sleep apnea) G47.33 Somnolence, daytime R40.0 Asthma J45.909
== END 2023-03-27 15:33 | disposition home or self-care (01) ==
PROVIDERS: PCP Internal Medicine Geriatric Medicine; Visit Provider Internal Medicine
DX: E66.01 Morbid (severe) obesity due to excess calories (principal); G47.33 Obstructive sleep apnea (adult) (pediatric); R40.0 Somnolence; J45.909 Unspecified asthma, uncomplicated
CPT/HCPCS: 99214

== ENCOUNTER → 2023-03-27 14:56 | Outpatient (BNVA) | payer MEDICAID, SELFPAY | PROVIDERS: PCP Internal Medicine Geriatric Medicine; Visit Provider Internal Medicine | DX: G47.33 Obstructive sleep apnea (adult) (pediatric) (principal); J45.909 Unspecified asthma, uncomplicated; R40.0 Somnolence; E66.01 Morbid (severe) obesity due to excess calories; Z68.42 Body mass index [BMI] 45.0-49.9, adult | CPT/HCPCS: 99212 ==

== ENCOUNTER 2023-04-11 14:59 | Outpatient (AMB) | payer MEDICAID, SELFPAY ==
--- NOTE | 2023-04-11 15:02 | A.OFFVIS_ITS ---
Intake VS Expanded 04/11/23 15:06 Height 5 ft 6 in Weight 285 lb 12.8 oz BMI 46.1 BP 140/69 H Blood Pressure Location Rt brachial Blood Pressure Position Sitting Pulse 85 Pulse Source Pulse Oximeter Temp 97.3 F Temperature Source Temporal Artery Scan Pulse Oximetry 95 Oxygen Delivery Method Room Air Body Fat 106.4 Body Fat Percentage 37.3 Free Fat Mass 179.2 Muscle Mass 170.4 Visceral Mass 26.0 Water Mass 143.4 BMR 2,487 Intake Visit Reasons: (OV) F/U SWL Allergies No Known Allergies Allergy (Verified 04/11/23 15:04) Medication List - Last Reconciled 04/11/23 by ASAEL Falcon albuterol sulfate 90 mcg/actuation (Ventolin HFA) 2 puffs inhalation Q4-6H PRN albuterol sulfate 2.5 mg (3 mL) inhalation Q4-6H PRN amlodipine 5 mg PO DAILY blood pressure kit-extra large As directed chlorthalidone 25 mg PO DAILY hydralazine 10 mg PO BID losartan 100 mg PO QPM metoprolol succinate ER 25 mg PO QAM mometasone-formoterol 200-5 mcg/actuation (Dulera) 2 puffs inhalation montelukast (Singulair) 10 mg PO DAILY tadalafil (Cialis) 20 mg PO DAILY PRN umeclidinium 62.5 mcg/actuation (Incruse Ellipta) 1 inh inhalation QAM HPI HPI Comments History of Present Illness Details The patient is a pleasant 52 year old male who returns to the clinic for pre-operative surgical weight loss management.? They were last seen in the office on 03/15/2023, recorded weight at that time was 281.4 pounds, with a BMI of 45.4.? Today's weight is 285.8 pounds and BMI is 46.1.? There has been a weight gain of 4.4 pounds since initiating the SWL program on 03/15/2023. Pre op work up completed as follows: SWL classes:? 12/02 BH appts: scheduled 04/26? ?? RD appts: none scheduled Labs: 03/07- low H/H, A1C 6.1, elevated AST/BUN, low WBC H. pylori: not done CXR: 03/16 unremarkable EKG: not yet done ABD U/S: 03/22, fatty infiltration, mild hepatomegaly, normal liver stiffness, gallbladder adenomyomatosis, benign, simple right renal cysts UGI: scheduled 06/13 The patient reports he got sick of salad and ate other foods. Would have one protein shake and then eat an entire rotisserie chicken. Had a lot of cravings. Current meal plan includes: Premier premade shakes: 2 per day, 5:30am-7:30am and 12pm-2pm. Fitcrunch or Zone Perfect bars: 2 protein bars per day, 9am-11am and 5pm-7pm. Dinner at 4pm: 3oz/6 forks of protein and 6-8oz/12-16 forks of salad/vegetables. If you work late and end up eating dinner after you finish work at 7pm, have your second protein bar at 4-6pm and dinner at 7pm when you get home. Current exercise plan includes: walking more- up to an hour, goes to the gym (PF) and does treadmill or ell iptical 45 minutes PFSH Medical History Asthma Asthma Bronchitis Hard of hearing HTN (hypertension) Morbid obesity TAMIA (obstructive sleep apnea) Somnolence, daytime Surgical History Hx of colonoscopy Hx of nasal polypectomy Family History Sister Ovarian cancer Father Lung cancer Mother Brain cancer Brother COPD (chronic obstructive pulmonary disease) Social History Household Members: Spouse Housing: Apartment Are you a primary ocular care technician to a significant other at home: No Do you presently have visiting nurse or other home services: No Alcohol intake: former Patient Tobacco Use Status: Never used Tobacco service: No Current occupational status: employed Current occupation: [employer] Physical Exam Vital Signs: Last Vital Signs Temp 97.3 F 04/11/23 15:06 Pulse 85 04/11/23 15:06 BP 140/69 H 04/11/23 15:06 Pulse Ox 95 04/11/23 15:06 Oxygen Delivery Method Room Air 04/11/23 15:06 BMI result Body Mass Index 46.1 Assessment & Plan Assessment & Plan (1) HTN (hypertension): Code(s): I10 - Essential (primary) hypertension (2) Asthma: Code(s): J45.909 - Unspecified asthma, uncomplicated (3) TAMIA (obstructive sleep apnea): Code(s): G47.33 - Obstructive sleep apnea (adult) (pediatric) (4) Morbid obesity: Code(s): E66.01 - Morbid (severe) obesity due to excess calories Plan I offered to change the meal plan for the pt to make it easier for him to follow but he declined. He wants to try to eat more consistently as the original plan instructed. We discussed prioritizing the protein portion of his meal and he can skip salad/veg if he does not want them. Reviewed avoiding skipping meals and only eating twice a day, and avoiding large portions. Discussed that eating more consistently may also help him minimize cravings. Will start pt on iron supplement. Needs appt with RD scheduled. H. pylori done today. RTC 3 weeks. After next visit, if pt makes progress with weight loss, can schedule visit with Dr. Duncan. Will transfer care to either [facility] or [facility] for next visit as his work schedule prohibits visits before 2pm. Patient is morbidly obese and is not considered stable at this time. I spent a total of 30 minutes reviewing/updating records, examining the patient and counseling the patient on weight management as detailed above. Medications: New iron,carbonyl-vitamin C 65 mg iron- 125 mg (Vitron-C) 1 tab PO BEDTIME 90 tabs 3RF Coding Level of Care Code Est Pt Level 4 (99067) Diagnoses HTN (hypertension) I10 Asthma J45.909 TAMIA (obstructive sleep apnea) G47.33 Morbid obesity E66.01
[2023-04-11 15:06] VITALS: BP 140/69; PULSE 85; TEMP 36.3; O2SAT 95; BMI 46.1
== END 2023-04-11 15:44 | disposition home or self-care (01) ==
PROVIDERS: PCP Internal Medicine Geriatric Medicine; Visit Provider Physician Assistant Surgical
DX: I10 Essential (primary) hypertension (principal); J45.909 Unspecified asthma, uncomplicated; G47.33 Obstructive sleep apnea (adult) (pediatric); E66.01 Morbid (severe) obesity due to excess calories
CPT/HCPCS: 99214

== ENCOUNTER → 2023-04-11 14:59 | Outpatient (BNVA) | payer MEDICAID, SELFPAY | PROVIDERS: PCP Internal Medicine Geriatric Medicine; Visit Provider Physician Assistant Surgical | DX: E66.01 Morbid (severe) obesity due to excess calories (principal); I10 Essential (primary) hypertension; J45.909 Unspecified asthma, uncomplicated; G47.33 Obstructive sleep apnea (adult) (pediatric) | CPT/HCPCS: 99211; 99212; 99214 ==

== ENCOUNTER 2023-04-11 15:20 | Outpatient (REF) | payer MEDICAID, SELFPAY ==
[2023-04-19 14:36] LABS: H Pylori Breath Test Negative (Negative)
== END 2023-04-11 15:21 | disposition home or self-care (01) ==
LOC: HO.LNP 15:20
PROVIDERS: Visit Provider Physician Assistant Surgical
DX: E66.01 Morbid (severe) obesity due to excess calories (principal); G47.33 Obstructive sleep apnea (adult) (pediatric); I10 Essential (primary) hypertension
CPT/HCPCS: 83013

== ENCOUNTER → 2023-04-24 16:09 | Outpatient (BNVA) | payer MEDICAID, SELFPAY | PROVIDERS: PCP Internal Medicine Geriatric Medicine; Visit Provider Dietitian, Registered | DX: E66.9 Obesity, unspecified (principal); Z71.3 Dietary counseling and surveillance | CPT/HCPCS: 97802 ==

== ENCOUNTER → 2023-05-17 14:33 | Outpatient (REF) | payer MEDICAID, SELFPAY | LOC: HO.SL 14:33 | PROVIDERS: PCP Internal Medicine Geriatric Medicine; Visit Provider Internal Medicine | DX: E66.01 Morbid (severe) obesity due to excess calories (principal); G47.33 Obstructive sleep apnea (adult) (pediatric); R40.0 Somnolence | CPT/HCPCS: 95806 ==

== ENCOUNTER → 2023-05-17 14:44 | Outpatient (BNV) | payer MEDICAID, SELFPAY | PROVIDERS: PCP Internal Medicine Geriatric Medicine; Visit Provider Internal Medicine | DX: G47.33 Obstructive sleep apnea (adult) (pediatric) (principal) | CPT/HCPCS: 95806 ==

== ENCOUNTER 2023-06-14 14:17 | Outpatient (AMB) | payer MEDICAID, SELFPAY ==
[2023-06-14 14:54] VITALS: BP 128/70; PULSE 89; O2SAT 97
--- NOTE | 2023-06-14 14:54 | A.OFFVIS_ITS ---
Intake Vital Signs 06/14/23 14:54 BP 128/70 Blood Pressure Location Lt brachial Position Sitting Pulse 89 Pulse Source Pulse Oximeter Pulse Oximetry (%) 97 Oxygen Delivery Method Room Air Intake Visit Reasons: TAMIA, Asthma Allergies No Known Allergies Allergy (Verified 06/14/23 15:23) Medication List - Last Reconciled 06/14/23 by Carmen Simpson MD albuterol sulfate 90 mcg/actuation (Ventolin HFA) 2 puffs inhalation Q4-6H PRN albuterol sulfate 2.5 mg (3 mL) inhalation Q4-6H PRN amlodipine 5 mg PO DAILY blood pressure kit-extra large As directed chlorthalidone 25 mg PO DAILY hydralazine 10 mg PO BID iron,carbonyl-vitamin C 65 mg iron- 125 mg (Vitron-C) 1 tab PO BEDTIME losartan 100 mg PO QPM metoprolol succinate ER 25 mg PO QAM mometasone-formoterol 200-5 mcg/actuation (Dulera) 2 puffs inhalation montelukast (Singulair) 10 mg PO DAILY tadalafil (Cialis) 20 mg PO DAILY PRN umeclidinium 62.5 mcg/actuation (Incruse Ellipta) 1 inh inhalation QAM Do you need a note to return to daycare/school/sports/work: No HPI Asthma HPI Details 53 YEARS OLD GENTLEMAN, MORBIDLY OBESE, COMES FOR FOLLOW-UP AFTER HIS SLEEP STUDY. HIS THE OF BRONCHIAL ASTHMA HAS REMAINED WELL CONTROLLED HE HAS HAD NO ACUTE EPISODES OF WHEEZING. HE STILL GETS SHORT OF BREATH ON MINIMAL EXERTION, WHICH MAY BE DUE TO HIS. MORBID OBESITY HE DOES USE HIS DULERA TWICE A DAY AND VENTOLIN ONLY IF HE NEEDS. WE WERE NOT ABLE TO LOCATE THE PREVIOUS PULMONARY FUNCTION. TEST PERFORMED IN [place] AND HE WOULD NEED ANOTHER NEW STUDY. HE DID HAVE SLEEP STUDY WHICH IS POSITIVE FOR SEVERE OBSTRUCTIVE SLEEP APNEA, WITH TOTAL SLEEP TIME AHI 37. I WALKED INTO THE ROOM TO EXAMINE HIM AND. HE WAS ALMOST SLEEPY HE SAY IS HE SNORES SO LOUD AT NIGHT THAT HIS NEIGHBOR CAN HEAR IT. [facility] Medical History Somnolence, daytime Asthma TAMIA (obstructive sleep apnea) Morbid obesity HTN (hypertension) Asthma Bronchitis Hard of hearing Surgical History Hx of colonoscopy Hx of nasal polypectomy Family History Sister Ovarian cancer Father Lung cancer Mother Brain cancer Brother COPD (chronic obstructive pulmonary disease) Social History Household Members: Spouse Housing: Apartment Are you a primary acute care certified nursing assistant to a significant other at home: No Do you presently have visiting nurse or other home services: No Alcohol intake: former Patient Tobacco Use Status: Never used Tobacco service: No Current occupational status: employed Current occupation: [employer] Review of Systems Const All systems reviewed & are unremarkable except as noted in HPI and below Eyes Reports no additional complaints ENT Reports nasal congestion (OFF AND ON) Card Denies chest pain, Denies irregular heart rhythm and Denies leg edema Resp Reports as per HPI GI Reports no additional complaints Reports no additional complaints Musc Reports back pain (OFF AND ON) Skin/Breast Reports system reviewed and no additional complaints, except as documented Neuro Reports no additional complaints Psych Reports no additional complaints Endo Reports no additional complaints Physical Exam Vital Signs: Last Vital Signs Pulse 89 06/14/23 14:54 BP 128/70 06/14/23 14:54 Pulse Ox 97 06/14/23 14:54 Oxygen Delivery Method Room Air 06/14/23 14:54 Const General: comfortable, no acute distress, alert, awake and other (NOTICCBLY SLEEPY DURING CONVERSATION) Orientation/consciousness: patient oriented x3 HEENT Head: Yes normal to inspection General nose exam: No nasal polyps present and No nasal discharge present Face and sinus: Yes sinuses nontender Mouth: oropharynx abnormals (VERY CROWDED AND NARROW, MALLAMPATI CLASS 4) Throat: Yes posterior oropharynx normal Eyes General: appearance normal, both eyes and all related structures Neck Neck: Yes normal visual inspection, Yes no lymphadenopathy, Yes trachea midline, Yes no JVD and Yes other (NECK CIRCUMFERENCE 20 IN) Thyroid: Thyroid normal Chest Chest palpation & inspection: normal inspection of the chest, normal palpation of entire chest wall and no tenderness Resp Other: PERCUSSION NOTE NOT PERCEPTIBLE DUE TO THICK CHEST WALL. BREATH SOUNDS ARE DISTANT, BUT NO WHEEZES OR RHONCHI HEARD AT THIS TIME. Cardio Palpation: PMI not normal (NOT PALPABLE) Rate: regular rate Rhythm: regular rhythm Heart sounds: no gallops and no murmurs GI Palpation (GI): Soft to palpation, Tenderness to palpation present (GI), No hepatosplenomegaly present, Palpable mass present and Other GI palpation findings present (ABDOMEN IS GROSSLY OBESE AND PROTUBERANT) Auscultation: normal bowel sounds Back/Spine/Pelvis Thoracic/Lumbar Spine: thoracic and lumbar spine normal to inspection and thorac o-lumbar ROM limited Skin General skin exam: no rashes or lesions noted Neuro General: patient oriented x3 and no focal motor deficits Cranial nerves: Yes CN's II-XII intact bilaterally Extrem General: Yes normal to inspection, Yes no clubbing, cyanosis or edema and Yes no calf tenderness Psych Appearance: grossly normal and well kempt Speech and movement: Normal speech and movement present Results Reviewed Results Reviewed: HOME-BASED SLEEP STUDY ON 05/17/2023 SHOWED THE FOLLOWING. TOTAL SLEEP TIME AHI 37.1. SUPINE AHI 65 LATERAL POSITION AHI 31 SNORING FOR 40% OF THE SLEEP TIME. AVERAGE O2 SAT 93 LOWEST O2 SAT 85 AND O2 SAT BELOW 88% FOR 2.5 MINUTES, NOT SIGNIFICANT Assessment & Plan Assessment & Plan (1) Morbid obesity: Comment: PATIENT IS EXTREMELY OBESE, WITH A ROUND FACE AND VERY NARROW OROPHARYNX HE NEEDS TO JOIN A WEIGHT MANAGEMENT PROGRAM BUT CANNOT DO THAT AT THIS TIME. HE SAY IS ONCE HE STARTS USING CPAP AND GETS MORE ENERGY HE WILL BE ABLE TO WALK AROUND. Code(s): E66.01 - Morbid (severe) obesity due to excess calories (2) TAMIA (obstructive sleep apnea): Comment: SEVERE OBSTRUCTIVE SLEEP APNEA WITH TOTAL SLEEP TIME AHI 37 HE HAS MARKED DAYTIME SLEEPINESS. TX: START ON CPAP THERAPY WITH AUTO PAP MODE AND PRESSURE SETTING OF 6-20 CM, HE WILL NEED TO USE START WITH A FULLFACE MASK. ORDER FOR THE CPAP AND CPAP SUPPLIES IS BEING SENT. WILL CHECK HIM BACK IN 6-8 WEEKS TO GO OVER THE COMPLIANCE AND BENEFITS Code(s): G47.33 - Obstructive sleep apnea (adult) (pediatric) (3) Asthma: Comment: HE HAS LONGSTANDING HISTORY OF ASTHMA. CONTROLLED WITH CURRENT INHALERS INCLUDING DULERA 200-5 MCG 2 PUFF B.I.D., INCRUSE ELLIPTA 1 INHALATION DAILY, ALBUTEROL 2 PUFFS Q 4-6 HOURS P.R.N.. I THINK HE NEEDS A COMPLETE PULMONARY FUNCTION TEST ONCE AGAIN, AND THEN DECIDE IF WE SHOULD TRY TO CUT DOWN ON HIS USE OF MEDS. Code(s): J45.909 - Unspecified asthma, uncomplicated Orders: Orders PFT pulmonary function test Today E66.01 - Morbid (severe) obesity due to excess calories, J45.909 - Unspecified asthma, uncomplicated Coding Level of Care Code Est Pt Level 4 (09040) Diagnoses Morbid obesity E66.01 TAMIA (obstructive sleep apnea) G47.33 Asthma J45.909
== END 2023-06-14 15:24 | disposition home or self-care (01) ==
PROVIDERS: PCP Internal Medicine Geriatric Medicine; Visit Provider Internal Medicine
DX: E66.01 Morbid (severe) obesity due to excess calories (principal); G47.33 Obstructive sleep apnea (adult) (pediatric); J45.909 Unspecified asthma, uncomplicated
CPT/HCPCS: 99214

== ENCOUNTER → 2023-06-14 14:17 | Outpatient (BNVA) | payer MEDICAID, SELFPAY | PROVIDERS: PCP Internal Medicine Geriatric Medicine; Visit Provider Internal Medicine | DX: J45.909 Unspecified asthma, uncomplicated (principal); G47.33 Obstructive sleep apnea (adult) (pediatric); E66.01 Morbid (severe) obesity due to excess calories | CPT/HCPCS: 99212 ==

== ENCOUNTER 2023-06-27 15:43 | Outpatient (REF) | payer MEDICAID, SELFPAY ==
[2023-06-27 17:59] LABS: Alanine Aminotransferase 37 U/L (0-40); Albumin Level 4.3 g/dL (3.5-5.0); Alkaline Phosphatase 102 U/L (39-117); Anion Gap 13 (12-20); Aspartate Amino Transferase 31 U/L (5-37); Bilirubin Total 0.2 mg/dL (0.0-1.0); Blood Urea Nitrogen 15 mg/dL (9-16); Carbon Dioxide 28 mmol/L (22-29); Chloride 104 mmol/L (96-108); Cholesterol 165 mg/dL (<200); Estimated Glomerular Filt Rate > 60; Glucose Random 118 mg/dL (60-115); HDL Cholesterol 39 mg/dL (>40); LDL Cholesterol Calculated 87 mg/dL (<100); Potassium 3.9 mmol/L (3.3-5.1); Sodium 141 mmol/L (135-145); Total Protein 8.1 g/dL (6.5-8.0); Triglycerides 195 mg/dL (<150)
== END 2023-06-27 15:44 | disposition home or self-care (01) ==
LOC: HO.HHCL 15:43
PROVIDERS: Visit Provider Internal Medicine Geriatric Medicine
DX: I10 Essential (primary) hypertension (principal); G47.33 Obstructive sleep apnea (adult) (pediatric)
CPT/HCPCS: 36415; 80053; 80061

== ENCOUNTER 2023-08-15 07:44 | Outpatient (REF) | payer MEDICAID, SELFPAY ==
--- NOTE | ~2023-08-15 | FL_ITS ---
EXAMINATION: XR FLUOROSCOPY UPPER GI WITH AIR CLINICAL INFORMATION: Preop evaluation prior to bariatric surgery COMPARISON: None TECHNIQUE: Fluoroscopic air contrast upper GI examination was performed utilizing standard techniques with thin and thick barium and effervescent granules. Numerous spot images were obtained. FINDINGS: Dual and single contrast images of the esophagus demonstrate normal caliber, contour, and mucosal pattern. No evidence of stricture, mass, or ulcerations identified. Esophageal peristalsis was normal. Mild nonpropulsive tertiary contractions are noted in the mid and distal esophagus. A small type I hiatal hernia is present. No significant gastroesophageal reflux was seen during the course of the examination and on reflux views. Dual contrast and single contrast images of the stomach demonstrated normal contour and mucosal pattern without evidence of mass, ulceration, or other abnormality. Contrast freely passed into the gastric antrum and duodenal bulb without delay. Single and air-contrast images of the duodenal bulb demonstrate no abnormality. The duodenal sweep has a normal appearance, course, and mucosal fold appearance. The imaged proximal jejunum has a normal fold pattern and caliber. FLUOROSCOPY TIME: 3 minutes 12 seconds Number of Spot Images: 11 Number of Cine: 7 DOSE AREA PRODUCT: 2590 uGy-m2 (microgray-meter squared) FL/FL upper GI w air IMPRESSION: 1. Small type I hiatal hernia. 2. Mild esophageal dysmotility This procedure was performed by Kendall Mckenna PA-C, and supervised by Dr. Richards
== END 2023-08-15 07:45 | disposition home or self-care (01) ==
LOC: HO.XRAY 07:44
PROVIDERS: PCP Internal Medicine Geriatric Medicine; Visit Provider Physician Assistant Surgical
DX: E66.01 Morbid (severe) obesity due to excess calories (principal); I10 Essential (primary) hypertension; G47.33 Obstructive sleep apnea (adult) (pediatric)
CPT/HCPCS: 74246

== ENCOUNTER → 2023-08-15 07:48 | Outpatient (BNV) | payer MEDICAID, SELFPAY | PROVIDERS: PCP Internal Medicine Geriatric Medicine; Visit Provider Radiology Diagnostic Radiology | DX: Z01.818 Encounter for other preprocedural examination (principal) | CPT/HCPCS: 74246 ==

== ENCOUNTER 2023-09-04 15:11 | Outpatient (REF) | payer MEDICAID, SELFPAY ==
[2023-09-04 11:13] VITALS: PULSE 80; RESP 20; O2SAT 95
--- NOTE | 2023-09-04 15:52 | PFT_ITS ---
Indication: Asthma Spirometry [FEV1 to FVC 67% pre bronchodilators and 71% post bronchodilators; FEV1 1.62 L; FVC 2.29 L. No significant response to bronchodilators noted. Maximum voluntary ventilation 56% predicted.] Lung Volumes [Total lung capacity 59% predicted; expiratory reserve volume 28% predicted] Diffusion Capacity [DLCO 72% predicted; DLCO corrected for alveolar volume 112% predicted] Comparisons [none] Interpretation [There is a partial reversible obstruction consistent with the patient's history of asthma. No significant response to bronchodilators noted. There is evidence of small airways disease again consistent with a diagnosis of asthma. There is also moderate decrease in the maximum voluntary ventilation secondary to likely deconditioning. The patient also has a moderate restrictive ventilatory defect. In part due to an elevated BMI. His expiratory reserve volume is significantly decreased. The patient also has a mild diffusion impairment that corrects to normal when corrected for the alveolar volume. Clinical correlation warranted.] MTDD
== END 2023-09-04 15:12 | disposition home or self-care (01) ==
LOC: HO.RESP 15:11
PROVIDERS: PCP Internal Medicine Geriatric Medicine; Visit Provider Internal Medicine
DX: J45.909 Unspecified asthma, uncomplicated (principal); E66.01 Morbid (severe) obesity due to excess calories
CPT/HCPCS: 94640

== ENCOUNTER → 2023-09-04 15:52 | Outpatient (BNV) | payer MEDICAID, SELFPAY | PROVIDERS: PCP Internal Medicine Geriatric Medicine; Visit Provider Hospitalist | DX: J45.909 Unspecified asthma, uncomplicated (principal) | CPT/HCPCS: 94060; 94727; 94729 ==

== ENCOUNTER 2023-09-27 14:55 | Outpatient (AMB) | payer MEDICAID, SELFPAY ==
[2023-09-27 15:03] VITALS: BP 132/70; PULSE 78; O2SAT 97; BMI 47.5
--- NOTE | 2023-09-27 15:03 | A.OFFVIS_ITS ---
Intake Vital Signs 09/27/23 15:03 Height 5 ft 6 in Weight 294 lb 5.074 oz BMI 47.5 BP 132/70 Blood Pressure Location Lt brachial Position Sitting Pulse 78 Pulse Source Pulse Oximeter Pulse Oximetry (%) 97 Oxygen Delivery Method Room Air Intake Visit Reasons: S/p pft Intake Note: pt is here for follow up and states he is pretty good, had pft and using cpap. Copy Editor Required: No Allergies No Known Allergies Allergy (Verified 09/27/23 15:38) Medication List - Last Reconciled 09/27/23 by Carmen Simpson MD albuterol sulfate 90 mcg/actuation (Ventolin HFA) 2 puffs inhalation Q4-6H PRN albuterol sulfate 2.5 mg (3 mL) inhalation Q4-6H PRN amlodipine 5 mg PO DAILY blood pressure kit-extra large As directed chlorthalidone 25 mg PO DAILY hydralazine 10 mg PO BID iron,carbonyl-vitamin C 65 mg iron- 125 mg (Vitron-C) 1 tab PO BEDTIME losartan 100 mg PO QPM metoprolol succinate ER 25 mg PO QAM mometasone-formoterol 200-5 mcg/actuation (Dulera) 2 puffs inhalation montelukast (Singulair) 10 mg PO DAILY tadalafil (Cialis) 20 mg PO DAILY PRN umeclidinium 62.5 mcg/actuation (Incruse Ellipta) 1 inh inhalation QAM Do you need a note to return to daycare/school/sports/work: No HPI S/p pft HPI Details This 53 years old gentleman, 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 Has morbid obesity, and was diagnosed to have severe obstructive sleep apnea. He has been started on the CPAP therapy, which he has been using every night with good compliance. He sleeping much better and keeps the mask on whole night. He has no issue related to the mask or CPAP unit. He also has history of bronchial asthma/COPD, with complaint of getting short of breath on minimal exertion. He is nonsmoker. Has been using Dulera 200-5 2 puffs b.i.d., Incruse Ellipta 1 inhalation daily, and Ventolin 2 puffs Q 4-6 hours only p.r.n.. He had pulmonary function test last month and we will go over the findings. He is relatively sedentary, after he works in the kitchen for 9 hours or so he just goes home eats his dinner and goes to sleep. He is not doing mom any active exercise. [facility] Medical History Somnolence, daytime Asthma TAMIA (obstructive sleep apnea) Morbid obesity HTN (hypertension) Asthma Bronchitis Hard of hearing Surgical History Hx of colonoscopy Hx of nasal polypectomy Family History Sister Ovarian cancer Father Lung cancer Mother Brain cancer Brother COPD (chronic obstructive pulmonary disease) Social History Household Members: Spouse Housing: Apartment Are you a primary health care marketing specialist to a significant other at home: No Do you presently have visiting nurse or other home services: No Alcohol intake: former Patient Tobacco Use Status: Never used Tobacco service: No Current occupational status: employed Current occupation: [employer] Review of Systems Const All systems reviewed & are unremarkable except as noted in HPI and below Eyes Reports no additional complaints ENT Reports nasal congestion (OFF AND ON) Card Denies chest pain, Denies irregular heart rhythm and Denies leg edema Resp Reports as per HPI GI Reports no additional complaints Reports no additional complaints Musc Reports back pain (OFF AND ON) Skin/Breast Reports system reviewed and no additional complaints, except as documented Neuro Reports no additional complaints Psych Reports no additional complaints Endo Reports no additional complaints Physical Exam Vital Signs: Last Vital Signs Pulse 78 09/27/23 15:03 BP 132/70 09/27/23 15:03 Pulse Ox 97 09/27/23 15:03 Oxygen Delivery Method Room Air 09/27/23 15:03 BMI result Body Mass Index 47.5 Const General: comfortable, no acute distress, alert, awake and other (NOTICCBLY SLEEPY DURING CONVERSATION) Orientation/consciousness: patient oriented x3 HEENT Head: Yes normal to inspection General nose exam: No nasal polyps present and No nasal discharge present Face and sinus: Yes sinuses nontender Mouth: oropharynx abnormals (VERY CROWDED AND NARROW, MALLAMPATI CLASS 4) Throat: Yes posterior oropharynx normal Eyes General: appearance normal, both eyes and all related structures Neck Neck: Yes normal visual inspection, Yes no lymphadenopathy, Yes trachea midline, Yes no JVD and Yes other (NECK CIRCUMFERENCE 20 IN) Thyroid: Thyroid normal Chest Chest palpation & inspection: normal inspection of the chest, normal palpation of entire chest wall and no tenderness Resp Other: PERCUSSION NOTE NOT PERCEPTIBLE DUE TO THICK CHEST WALL. BREATH SOUNDS ARE DISTANT, BUT NO WHEEZES OR RHONCHI HEARD AT THIS TIME. Cardio Palpation: PMI not normal (NOT PALPABLE) Rate: regular rate Rhythm: regular rhythm Heart sounds: no gallops and no murmurs GI Palpation (GI): Soft to palpation, Tenderness to palpation present (GI), No hepatosplenomegaly present, Palpable mass present and Other GI palpation f indings present (ABDOMEN IS GROSSLY OBESE AND PROTUBERANT) Auscultation: normal bowel sounds Back/Spine/Pelvis Thoracic/Lumbar Spine: thoracic and lumbar spine normal to inspection and thoraco-lumbar ROM limited Skin General skin exam: no rashes or lesions noted Neuro General: patient oriented x3 and no focal motor deficits Cranial nerves: Yes CN's II-XII intact bilaterally Extrem General: Yes normal to inspection, Yes no clubbing, cyanosis or edema and Yes no calf tenderness Psych Appearance: grossly normal and well kempt Speech and movement: Normal speech and movement present Results Reviewed Results Reviewed: COMPLIANCE REPORT FOR THE LAST 30 NIGHTS IS REVIEWED. HE HAS BEEN VERY COMPLIANT USING 30/30 NIGHTS, 100%. AVERAGE USE IT PER NIGHT 6 HOURS 57 MINUTES. THERE IS A MODERATE AMOUNT OF AIR LEAK. RESIDUAL AHI ONLY 2.3 Pulmonary function test shows the following : FVC 56%, FEV1 47%, fef 25-75 28% with good response to BD therapy TLC 59% DLCO 72% Findings consistent with moderately severe restrictive pulmonary disorder and also moderate degree of obstructive disorder with some response to bronchodilator therapy Assessment & Plan Assessment & Plan (1) Morbid obesity: Comment: PATIENT IS EXTREMELY OBESE, WITH A ROUND FACE AND VERY NARROW OROPHARYNX HE NEEDS TO JOIN A WEIGHT MANAGEMENT PROGRAM BUT CANNOT DO THAT AT THIS TIME. Code(s): E66.01 - Morbid (severe) obesity due to excess calories Plan: I HAD A DETAILED DISCUSSION WITH HIM AND I TRY TO MOTIVATE HIM TO WALK 1 OR 2 MILES EVERY DAY, CUT DOWN THE CALORIES INTAKE. AND THINK ABOUT JOINING A WEIGHT MANAGEMENT PROGRAM. (2) TAMIA (obstructive sleep apnea): Comment: SEVERE OBSTRUCTIVE SLEEP APNEA WITH TOTAL SLEEP TIME AHI 37 HAS BEEN STARTED ON CPAP THERAPY WITH AUTO PAP MODE AND PRESSURE SETTING OF 6-20 CM. HE HAS BEEN VERY COMPLIANT TO THE USE OF CPAP DURING THE PAST 30 NIGHTS. HE CLAIMS THAT HIS SLEEP IS BETTER AND HE HAS LESS DAYTIME SLEEPINESS Code(s): G47.33 - Obstructive sleep apnea (adult) (pediatric) Plan: COMMENDED FOR HIS GOOD COMPLIANCE AND ADVISED TO CONTINUE USING THE CPAP EVERY NIGHT (3) Asthma: Comment: HE HAS LONGSTANDING HISTORY OF ASTHMA. CONTROLLED WITH CURRENT INHALERS INCLUDING DULERA 200-5 MCG 2 PUFF B.I.D., INCRUSE ELLIPTA 1 INHALATION DAILY, ALBUTEROL 2 PUFFS Q 4-6 HOURS P.R.N.. * PULMONARY FUNCTION TEST RESULTS CONSISTENT WITH : MODERATELY SEVERE RESTRICTIVE PULMONARY DISORDER AND MODERATELY SEVERE OBSTRUCTIVE AIRWAY DISORDER WITH PARTIAL RESPONSE TO BD THERAPY. THESE RESULTS ARE CONSISTENT WITH BRONCHIAL ASTHMA/COPD . Code(s): J45.909 - Unspecified asthma, uncomplicated Plan: CONTINUED DULERA 200-5 2 PUFFS B.I.D. INCRUSE ELLIPTA 1 INHALATION DAILY VENTOLIN HFA 2 PUFFS Q 4-6 HOURS P.R.N.. Coding Level of Care Code Est Pt Level 4 (08776) Diagnoses Morbid obesity E66.01 TAMIA (obstructive sleep apnea) G47.33 Asthma J45.909
== END 2023-09-27 15:38 | disposition home or self-care (01) ==
PROVIDERS: PCP Internal Medicine Geriatric Medicine; Referring Provider Internal Medicine Geriatric Medicine; Visit Provider Internal Medicine
DX: E66.01 Morbid (severe) obesity due to excess calories (principal); G47.33 Obstructive sleep apnea (adult) (pediatric); J45.909 Unspecified asthma, uncomplicated
CPT/HCPCS: 99214

== ENCOUNTER → 2023-09-27 14:55 | Outpatient (BNVA) | payer MEDICAID, SELFPAY | PROVIDERS: PCP Internal Medicine Geriatric Medicine; Visit Provider Internal Medicine | DX: J45.909 Unspecified asthma, uncomplicated (principal); E66.01 Morbid (severe) obesity due to excess calories; Z68.42 Body mass index [BMI] 45.0-49.9, adult; G47.33 Obstructive sleep apnea (adult) (pediatric); Z79.899 Other long term (current) drug therapy | CPT/HCPCS: 99212 ==

== ENCOUNTER 2023-12-11 15:21 | Outpatient (REF) | payer MEDICAID, SELFPAY ==
[2023-12-11 16:59] LABS: Creatinine Urine 154.85 mg/dL; Microalbum/Creatinine Ratio Ur 87.8 ug/mg cr (<30)
== END 2023-12-11 15:22 | disposition home or self-care (01) ==
LOC: HO.HHCL 15:21
PROVIDERS: Visit Provider Nurse Practitioner Family
DX: E11.65 Type 2 diabetes mellitus with hyperglycemia (principal)
CPT/HCPCS: 82043; 82570

== ENCOUNTER 2023-12-25 15:51 | Outpatient (AMB) | payer MEDICAID, SELFPAY ==
[2023-12-25 15:57] VITALS: BP 112/84; PULSE 71; O2SAT 97; BMI 45.7
--- NOTE | 2023-12-25 15:57 | A.OFFVIS_ITS ---
Vital Signs 12/25/23 15:57 Height 5 ft 6 in Weight 283 lb 4.704 oz BMI 45.7 BP 112/84 Blood Pressure Location Lt brachial Position Sitting Pulse 71 Pulse Source Pulse Oximeter Pulse Oximetry (%) 97 Oxygen Delivery Method Room Air Intake Visit Reasons: Dyspnea Intake Note: pt is here for follow up and feels okay, using cpap and no shortness of breath. Siding Stapler Required: No Allergies No Known Allergies Allergy (Verified 12/25/23 16:28) Medication List - Last Reconciled 12/25/23 by Carmen Simpson MD albuterol sulfate 90 mcg/actuation (Ventolin HFA) 2 puffs inhalation Q4-6H PRN albuterol sulfate 2.5 mg (3 mL) inhalation Q4-6H PRN amlodipine 5 mg PO DAILY blood pressure kit-extra large As directed chlorthalidone 25 mg PO DAILY hydralazine 10 mg PO BID iron,carbonyl-vitamin C 65 mg iron- 125 mg (Vitron-C) 1 tab PO BEDTIME losartan 100 mg PO QPM metoprolol succinate ER 25 mg PO QAM mometasone-formoterol 200-5 mcg/actuation (Dulera) 2 puffs inhalation montelukast (Singulair) 10 mg PO DAILY tadalafil (Cialis) 20 mg PO DAILY PRN umeclidinium 62.5 mcg/actuation (Incruse Ellipta) 1 inh inhalation QAM Do you need a note to return to daycare/school/sports/work: No HPI HPI Dyspnea: Details: THIS 53 YEARS OLD GENTLEMAN WITH MORBID OBESITY, AND OBSTRUCTIVE SLEEP APNEA, IS HERE FOR FOLLOW-UP AFTER 2 MONTHS. HE ALSO SUFFERS FROM BRONCHIAL ASTHMA , WHICH IS CONTROLLED WITH USE OF DULERA AND INCRUSE ELLIPTA. HE CLAIMS THAT HE IS USING HIS CPAP EVERY NIGHT AND SLEEPS. MUCH BETTER THAN BEFORE HE HAS HAD NO ACUTE ATTACKS OF ASTHMA. STILL GETS SHORT OF BREATH WHEN HE WALKS FAST OR CLIMBS STAIRS, HE IS LOSING WEIGHT SLOWLY, AND HAS LOST 10 LB IN THE LAST 2 MONTHS. [facility] Medical History Somnolence, daytime Asthma TAMIA (obstructive sleep apnea) Morbid obesity HTN (hypertension) Asthma Bronchitis Hard of hearing Surgical History Hx of colonoscopy Hx of nasal polypectomy Family History Sister Ovarian cancer Father Lung cancer Mother Brain cancer Brother COPD (chronic obstructive pulmonary disease) Social History Household Members: Spouse Housing: Apartment Are you a primary janitor caretaker to a significant other at home: No Do you presently have visiting nurse or other home services: No Alcohol intake: former Patient Tobacco Use Status: Never used Tobacco service: No Current occupational status: employed Current occupation: [employer] Review of Systems Const All systems reviewed & are unremarkable except as noted in HPI and below Eyes Reports no additional complaints ENT Reports nasal congestion (OFF AND ON) Card Denies chest pain, Denies irregular heart rhythm and Denies leg edema Resp Reports as per HPI GI Reports no additional complaints Reports no additional complaints Musc Reports back pain (OFF AND ON) Skin/Breast Reports system reviewed and no additional complaints, except as documented Neuro Reports no additional complaints Psych Reports no additional complaints Endo Reports no additional complaints Physical Exam Vital Signs: Last Vital Signs Pulse 71 12/25/23 15:57 BP 112/84 12/25/23 15:57 Pulse Ox 97 12/25/23 15:57 Oxygen Delivery Method Room Air 12/25/23 15:57 BMI result Body Mass Index 45.7 Const General: comfortable, no acute distress, alert, awake and other (NOTICCBLY SLEEPY DURING CONVERSATION) Orientation/consciousness: patient oriented x3 HEENT Head: Yes normal to inspection General nose exam: No nasal polyps present and No nasal discharge present Face and sinus: Yes sinuses nontender Mouth: oropharynx abnormals (VERY CROWDED AND NARROW, MALLAMPATI CLASS 4) Throat: Yes posterior oropharynx normal Eyes General: appearance normal, both eyes and all related structures Neck Neck: Yes normal visual inspection, Yes no lymphadenopathy, Yes trachea midline, Yes no JVD and Yes other (NECK CIRCUMFERENCE 20 IN) Thyroid: Thyroid normal Chest Chest palpation & inspection: normal inspection of the chest, normal palpation of entire chest wall and no tenderness Resp Other: PERCUSSION NOTE NOT PERCEPTIBLE DUE TO THICK CHEST WALL. BREATH SOUNDS ARE DISTANT, BUT NO WHEEZES OR RHONCHI HEARD AT THIS TIME. Cardio Palpation: PMI not normal (NOT PALPABLE) Rate: regular rate Rhythm: regular rhythm Heart sounds: no gallops and no murmurs GI Palpation (GI): Soft to palpation, Tenderness to palpation present (GI), No hepatosplenomegaly present, Palpable mass present and Other GI palpation findings present (ABDOMEN IS GROSSLY OBESE AND PROTUBERANT) Auscultation: normal bowel sounds Back/Spine/Pelvis Thoracic/Lumbar Spine: thoracic and lumbar spine normal to inspection and thoraco-lumbar ROM limited Skin General skin exam: no rashes or lesions noted Neuro General: patient oriented x3 and no focal motor deficits Cranial nerves: Yes CN's II-XII intact bilaterally Extrem General: Yes normal to inspection, Yes no clubbing, cyanosis or edema and Yes no calf tenderness Psych Appearance: grossly normal and well kempt Speech and movement: Normal speech and movement present Results Reviewed Results Reviewed: COMPLIANCE REPORT IS EXCELLENT. USED 30/30 NIGHTS., 100% AVERAGE USE PER NIGHT 6 HOURS 39 MINUTES. PRESSURE USED IS 14-15 CM. THERE IS A SLIGHT AIR LEAK. RESIDUAL AHI 1.9 Assessment & Plan Assessment & Plan (1) Morbid obesity: Comment: PATIENT IS EXTREMELY OBESE, WITH A ROUND FACE AND VERY NARROW OROPHARYNX HE NEEDS TO JOIN A WEIGHT MANAGEMENT PROGRAM BUT CANNOT DO THAT AT THIS TIME. HE HAS BEEN STARTED ON ANTI OBESITY MED ( DOES NOT KNOW THE NAME OF IT ) Code(s): E66.01 - Morbid (severe) obesity due to excess calories Category: Medical Plan: CONTINUE ON THE DIET. CONTINUE THE ANTI OBESITY MED (2) TAMIA (obstructive sleep apnea): Comment: SEVERE OBSTRUCTIVE SLEEP APNEA WITH TOTAL SLEEP TIME AHI 37 HAS BEEN STARTED ON CPAP THERAPY WITH AUTO PAP MODE AND PRESSURE SETTING OF 6-20 CM. HE HAS BEEN VERY COMPLIANT TO THE USE OF CPAP . NO ISSUES WITH THE MASK OR CPAP DEVICE. HIS DAYTIME SLEEPINESS IS MUCH LESS. Code(s): G47.33 - Obstructive sleep apnea (adult) (pediatric) Category: Medical Plan: CONTINUE TO USE THE CPAP EVERY NIGHT. TIGHTEN THE STRAPS TO MINIMIZE AIR LEAKAGE. (3) Asthma: Comment: HE HAS LONGSTANDING HISTORY OF ASTHMA. CONTROLLED WITH CURRENT INHALERS INCLUDING DULERA 200-5 MCG 2 PUFF B.I.D., INCRUSE ELLIPTA 1 INHALATION DAILY, ALBUTEROL 2 PUFFS Q 4-6 HOURS P.R.N.. * PULMONARY FUNCTION TEST RESULTS CONSISTENT WITH : MODERATELY SEVERE RESTRICTIVE PULMONARY DISORDER AND MODERATELY SEVERE OBSTRUCTIVE AIRWAY DISORDER WITH PARTIAL RESPONSE TO BD THERAPY. THESE RESULTS ARE CONSISTENT WITH BRONCHIAL ASTHMA/COPD . Code(s): J45.909 - Unspecified asthma, uncomplicated Category: Medical Plan: DULERA HFA 200-5 2 PUFFS B.I.D.. INCRUSE ELLIPTA 1 INHALATION DAILY VENTOLIN 2 PUFFS Q 4-6 HOURS ONLY P.R.N. Coding Level of Care Code Est Pt Level 3 (85629) Diagnoses Morbid obesity E66.01 TAMIA (obstructive sleep apnea) G47.33 Asthma J45.909
== END 2023-12-25 16:27 | disposition home or self-care (01) ==
LOC: HO.HPS 15:51
PROVIDERS: PCP Internal Medicine Geriatric Medicine; Referring Provider Internal Medicine Geriatric Medicine; Visit Provider Internal Medicine
DX: E66.01 Morbid (severe) obesity due to excess calories (principal); G47.33 Obstructive sleep apnea (adult) (pediatric); J45.909 Unspecified asthma, uncomplicated
CPT/HCPCS: 99213

== ENCOUNTER → 2023-12-25 15:51 | Outpatient (BNVA) | payer MEDICAID, SELFPAY | PROVIDERS: PCP Internal Medicine Geriatric Medicine; Visit Provider Internal Medicine | DX: J45.909 Unspecified asthma, uncomplicated (principal); G47.33 Obstructive sleep apnea (adult) (pediatric); E66.01 Morbid (severe) obesity due to excess calories; Z68.42 Body mass index [BMI] 45.0-49.9, adult | CPT/HCPCS: 99212 ==

== ENCOUNTER 2024-02-26 15:28 | Outpatient (REF) | payer MEDICAID, SELFPAY ==
[2024-02-26 16:58] LABS: Anion Gap 12 (12-20); Blood Urea Nitrogen 20 mg/dL (9-16); Calcium 9.7 mg/dL (8.4-10.2); Carbon Dioxide 29 mmol/L (22-29); Chloride 102 mmol/L (96-108); Estimated Glomerular Filt Rate > 60; Glucose Random 104 mg/dL (60-115); Potassium 3.3 mmol/L (3.3-5.1); Sodium 140 mmol/L (135-145)
== END 2024-02-26 15:29 | disposition home or self-care (01) ==
LOC: HO.HHCL 15:28
PROVIDERS: Visit Provider Internal Medicine Geriatric Medicine
DX: E11.65 Type 2 diabetes mellitus with hyperglycemia (principal); I10 Essential (primary) hypertension
CPT/HCPCS: 36415; 80048

== ENCOUNTER 2024-09-18 14:18 | Outpatient (AMB) | payer SELFPAY ==
[2024-09-18 14:27] VITALS: BMI 42.8
--- NOTE | 2024-09-18 14:27 | A.OFFVIS_ITS ---
Vital Signs 09/18/24 14:27 Height 5 ft 6 in Weight 265 lb 4 oz BMI 42.8 Intake Visit Reasons: painful hemorrhoids Intake Note: This patient presents for painful hemorrhoids. Pt c/o; no rectal bleeding, reports constipation and pain. Dairy Nutrition Specialist Required: No Accompanied by: Self / Same As Patient Allergies No Known Allergies Allergy (Verified 09/18/24 14:41) Medication List - Last Reconciled 09/18/24 by Augusto Purcell MD albuterol sulfate 90 mcg/actuation (Ventolin HFA) 2 puffs inhalation Q4-6H PRN albuterol sulfate 2.5 mg (3 mL) inhalation Q4-6H PRN amlodipine 5 mg PO DAILY blood pressure kit-extra large As directed chlorthalidone 25 mg PO DAILY hydralazine 10 mg PO BID iron,carbonyl-vitamin C 65 mg iron- 125 mg (Vitron-C) 1 tab PO BEDTIME losartan 100 mg PO QPM metoprolol succinate ER 25 mg PO QAM mometasone-formoterol 200-5 mcg/actuation (Dulera) 2 puffs inhalation montelukast (Singulair) 10 mg PO DAILY tadalafil (Cialis) 20 mg PO DAILY PRN umeclidinium 62.5 mcg/actuation (Incruse Ellipta) 1 inh inhalation QAM HPI HPI painful hemorrhoids: Details: 54-year-old male referred for hemorrhoid issues. He says that he has had hemorrhoids for more than 10 years. However he says that his symptoms have been worsening. He describes frequent swelling and pain especially with bowel movements. Once in a while he would see blood on wiping He says that he has this urge to wipe more frequently after bowel movements and this causes more irritation. He says he has had problems with constipation in the past. [facility] Medical History (Updated 09/18/24 @ 14:48 by Augusto Purcell MD) Hemorrhoids with complication Somnolence, daytime Asthma TAMIA (obstructive sleep apnea) Morbid obesity HTN (hypertension) Asthma Bronchitis Hard of hearing Surgical History Hx of colonoscopy Hx of nasal polypectomy Family History Sister Ovarian cancer Father Lung cancer Mother Brain cancer Brother COPD (chronic obstructive pulmonary disease) Social History Household Members: Spouse Housing: Apartment Are you a primary healthcare analyst to a significant other at home: No Do you presently have visiting nurse or other home services: No Alcohol intake: former Patient Tobacco Use Status: Never used Tobacco service: No Current occupational status: employed Current occupation: [employer] Review of Systems Const Denies chills and Denies fever(s) Card Denies chest pain, Denies dyspnea and Reports dyspnea on exertion Resp Denies cough, Denies dyspnea and Reports dyspnea on exertion GI Reports hematochezia, Denies change in bowel habits and Reports constipation Denies hematuria and Denies difficulty urinating Musc Denies back pain and Denies limited range of motion Neuro Denies focal weakness and Denies convulsions Psych Denies depression and Denies mood swings Physical Exam Vital Signs: BMI result Body Mass Index 42.8 Const Other: Morbidly obese General: comfortable and no acute distress Orientation/consciousness: patient oriented x3 Neck Neck: Yes no lymphadenopathy Resp Auscultation: clear to auscultation bilaterally Cardio Rhythm: regular rhythm GI Other: Rectal exam shows bulky external hemorrhoids on both the left and right side Palpation (GI): Soft to palpation, nontender and no guarding Neuro General: patient oriented x3 Office Procedures Anoscopy He was in tish-knife position. The anoscope was gently inserted. A full examination of the anal canal was done but he was very uncomfortable. He did have mixed hemorrhoids on both the left and right side. Exam was quick because of the discomfort however. [id number] Assessment & Plan Assessment & Plan (1) Hemorrhoids with complication: Code(s): K64.8 - Other hemorrhoids Category: Medical Plan: He has bulky internal external hemorrhoids with frequent swelling, pain and discomfort. He wants to proceed with hemorrhoidectomy I had a long discussion with him about the technique of exam under anesthesia and hemorrhoidectomy. I reviewed the risks including but not limited to bleeding, infections, postop pain, as well as the benefits and alternatives. I explained to him what to expect postoperatively. He says that in view of his chronic symptoms which are worsening, he wants to proceed with hemorrhoidectomy. He does understand that he has multiple medical issues including asthma, COPD and obesity. Coding Level of Care Code New Pt Level 3 (34135) Diagnoses Hemorrhoids with complication K64.8 CPT Codes Details - CPT: 56458-[id number] ([id number])
== END 2024-09-18 14:53 | disposition home or self-care (01) ==
PROVIDERS: PCP Internal Medicine Geriatric Medicine; Visit Provider Surgery
DX: K64.8 Other hemorrhoids (principal)
CPT/HCPCS: 46600; 99203

== ENCOUNTER → 2024-09-18 14:18 | Outpatient (BNVA) | payer OTHER, SELFPAY | PROVIDERS: PCP Internal Medicine Geriatric Medicine; Visit Provider Surgery | DX: K64.8 Other hemorrhoids (principal) | CPT/HCPCS: 46600; 99202 ==

== ENCOUNTER 2024-10-31 08:43 | Day surgery (SDC) | payer OTHER, SELFPAY ==
[2024-10-29 15:36] VITALS: BMI 42.8
--- NOTE | 2024-10-30 09:51 | HO.ANESPROP2 ---
Documented by User: Evelyn Metzger NP 10/30/24 09:54 HPI - Anesthesia Eval Consult details Narrative: 54yo M for EUA,Hemorrhoidectomy Anesthesia Pre-Procedure Meds Is the patient on any of the following meds?: GLP1/DPP4 PMFSH Active Problems Active Problems: All Active Problems Internal derangement of right knee (Acute) Leucocytosis (Acute) Hemorrhoids with complication (Acute) HTN (hypertension) (Acute) Somnolence, daytime (Acute) Asthma (Acute) TAMIA (obstructive sleep apnea) (Acute) Morbid obesity (Acute) Past Medical History Medical History Diabetes Hemorrhoids with complication Somnolence, daytime Asthma TAMIA (obstructive sleep apnea) Morbid obesity HTN (hypertension) Asthma Bronchitis Hard of hearing Family History Family History Sister Ovarian cancer Father Lung cancer Mother Brain cancer Brother COPD (chronic obstructive pulmonary disease) Surgical History Surgical History Hx of colonoscopy Hx of nasal polypectomy Social History Social History Household Members: Spouse Housing: Apartment Are you a primary healthcare advisory services manager to a significant other at home: No Do you presently have visiting nurse or other home services: No Alcohol intake: former Patient Tobacco Use Status: Never used Tobacco e-Cigarette/Vaping Use: Never Used Use of substances other than those prescribed or required for medical reasons: No Have you been hit, kicked, punched, or otherwise hurt by someone within the past year? If so, by whom?: No Are you DNR?: No Advance Directives: No Advance Directives Information Provided: Yes Advance Directives on File: No Recently lost weight without trying: No Nutrition Risks: No Nutritional Risk Poor oral hygiene: No service: No Current occupational status: employed Current occupation: [employer] Meds Allergies Allergy/AdvReac Type Severity Reaction Status Date / Time No Known Allergies Allergy Verified 10/31/24 08:53 Home Medications ?Medication ?Instructions ?Recorded ?Confirmed ?Last Taken ?Type amlodipine 5 mg tablet 5 mg PO DAILY 10/23/22 10/29/24 Unknown History losartan 100 mg tablet 100 mg PO QPM 01/24/23 10/29/24 Unknown History mometasone-formoterol HFA 200 2 puff inhalation DAILY 01/24/23 10/29/24 Unknown History mcg-5 mcg/actuation aerosol inhaler (Dulera) blood pressure kit-extra large #1 ea 03/27/23 09/18/24 Unknown History chlorthalidone 25 mg tablet 25 mg PO DAILY 03/27/23 10/29/24 Unknown History hydralazine 10 mg tablet 10 mg PO BID 03/27/23 10/29/24 Unknown History metoprolol succinate 25 mg 25 mg PO QAM 03/27/23 10/29/24 Unknown History tablet,extended release 24 hr tadalafil 20 mg tablet (Cialis) 20 mg PO DAILY PRN Sexual Activity 03/27/23 10/29/24 Unknown History umeclidinium 62.5 mcg/actuation 1 inh inhalation QAM 03/27/23 10/29/24 Unknown History blister powder for inhalation (Incruse Ellipta) dulaglutide 4.5 mg/0.5 mL 4.5 mg subcut QWEEK 10/29/24 10/29/24 10/23/24 [facility] Exam Height,Weight and Vital Signs: Height 5 ft 6 in Weight 120.202 kg Pertinent Lab Results Pertinent Lab Results: Laboratory Tests 02/26/24 15:30 Sodium 140 Potassium 3.3 Chloride 102 Carbon Dioxide 29 BUN 20 H Creatinine 0.95 Documented by User: Katina Booth MD 10/31/24 09:27 [facility] Past Medical History Medical History Diabetes Hemorrhoids with complication Somnolence, daytime Asthma TAMIA (obstructive sleep apnea) Morbid obesity HTN (hypertension) Asthma Bronchitis Hard of hearing Family History Family History Sister Ovarian cancer Father Lung cancer Mother Brain cancer Brother COPD (chronic obstructive pulmonary disease) Family history of problems with anesthesia: No Surgical History Surgical History Hx of colonoscopy Hx of nasal polypectomy History of Problems with Anesthesia: No Social History Social History Household Members: Spouse Housing: Apartment Are you a primary healthcare advisory services manager to a significant other at home: No Do you presently have visiting nurse or other home services: No Alcohol intake: former Patient Tobacco Use Status: Never used Tobacco e-Cigarette/Vaping Use: Never Used Use of substances other than those prescribed or required for medical reasons: No Have you been hit, kicked, punched, or otherwise hurt by someone within the past year? If so, by whom?: No Are you DNR?: No Advance Directives: No Advance Directives Information Provided: Yes Advance Directives on File: No Recently lost weight without trying: No Nutrition Risks: No Nutritional Risk Poor oral hygiene: No service: No Current occupational status: employed Current occupation: [employer] Allergies Allergy/AdvReac Type Severity Reaction Status Date / Time No Known Allergies Allergy Verified 10/31/24 08:53 Home Medications ?Medication ?Instructions ?Recorded ?Confirmed ?Last Taken ?Type amlodipine 5 mg tablet 5 mg PO DAILY 10/23/22 10/29/24 Unknown History losartan 100 mg tablet 100 mg PO QPM 01/24/23 10/29/24 Unknown History mometasone-formoterol HFA 200 2 puff inhalation DAILY 01/24/23 10/29/24 Unknown History mcg-5 mcg/actuation aerosol inhaler (Dulera) blood pressure kit-extra large #1 ea 03/27/23 09/18/24 Unknown History chlorthalidone 25 mg tablet 25 mg PO DAILY 03/27/23 10/29/24 Unknown History hydralazine 10 mg tablet 10 mg PO BID 03/27/23 10/29/24 Unknown History metoprolol succinate 25 mg 25 mg PO QAM 03/27/23 10/29/24 Unknown History tablet,extended release 24 hr tadalafil 20 mg tablet (Cialis) 20 mg PO DAILY PRN Sexual Activity 03/27/23 10/29/24 Unknown History umeclidinium 62.5 mcg/actuation 1 inh inhalation QAM 03/27/23 10/29/24 Unknown History blister powder for inhalation (Incruse Ellipta) dulaglutide 4.5 mg/0.5 mL 4.5 mg subcut QWEEK 10/29/24 10/29/24 10/23/24 History subcutaneous pen injector (Trulicity) Exam Airway Mallampati Class: III TM Dist: >3cm Neck ROM: Full Heart: rrr Lungs: cta Assessment and Plan Assessment Anesthesia Assessment: Anesthesia Plan Discussed Final Anesthetic Review Family History of Problems with Anesthesia: No History of Problems with Anesthesia: No NPO: Yes ASA Class: III Final Preanesthetic Review: No Changes in Pt Med Stat, Meds/Allgs Chart Reviewed, Consent Obtained/Reviewed and Anes Risks/Benef Reviewed Patient Risk: Intermediate Procedure Risk: Low Anesthetic Plan Anesthetic Plan: GA Disposition: Standard PACU
[2024-10-31] VITALS (12 sets, daily range): BP systolic 113–139; BP diastolic 60–86; PULSE 60–77; RESP 13–18; TEMP 36.1–36.7; O2SAT 94–100; BMI 42.9
[2024-10-31] MEDS: Lactated Ringers 1,000 ML 100 ML IVCONT (09:01)
[2024-10-31 09:13] LABS: Glucose, Whole Blood 86 mg/dL (60-115)
--- NOTE | 2024-10-31 09:28 | MHC.SHP ---
Pre-Procedural Eval Section A - 24 Hr Update-Section A only Date of Service: 10/31/24 Section B - Complete if H&P > 30 days Chief Complaint: Other hemorrhoids Details of Present Illness: Has had a long history of hemorrhoids symptoms Relevant Family History (Specify if Yes): No Relevant Social History: None Present Medications: see Short Stay Collaborative assessment Medical History: Significant History (Sleep apnea, obesity, asthma) History of Previous Operations: No relevant previous surgery Allergies: Allergies Allergy/AdvReac Type Severity Reaction Status Date / Time No Known Allergies Allergy Verified 10/31/24 08:53 Review of Systems Sugical H&P ROS: Negative: Constitution, Cardiovascular, Respiratory and Gastrointestinal Exam Surgical H&P Exam: Normal: Heart, Normal: Lungs and Normal: Abdomen Exam Comment: Has internal external hemorrhoids Plan Diagnosis/Plan: Unchanged I have reviewed the history and physical and performed a pertinent physical examination on my patient. No changes have occurred unless specified. Time Spent With Patient Time: Total time managing care of this patient today ____ minutes.
--- NOTE | 2024-10-31 11:03 | P.OP_ITS ---
Operative Note Operative Note Date of Service: 10/31/24 Narrative: Preop diagnosis: Internal and external hemorrhoids with pain and swelling Postop diagnosis: The same Procedure: Exam under anesthesia hemorrhoidectomy x3 columns Surgeon: Augusto Purcell MD The patient is a 54-year-old male with a long history of pain, swelling and bleeding with this hemorrhoids. He therefore wanted to proceed with hemorrhoidectomy. He understood the technique of the planned procedure as well as the risks, benefits, and alternatives. He was brought to the operating room. He was placed in prone tish-knife position under general anesthesia via endotracheal tube. The buttocks were retracted with wide tape laterally. The perianal area was prepped and draped in the usual sterile fashion. A surgical time-out was done. The patient was received Cefotan 2 g IV preoperatively I infiltrated the perianal area with lidocaine 1%. Examination of the anal orifice revealed large hemorrhoidal columns on both the left and right side. I inserted the Elle Lott retractor. I examined the anal canal circumferentially. There was note of mixed internal external hemorrhoids on both the left and the right side. There were no other lesions. There was no fissure ulceration I applied a Oliva grasper at the large hemorrhoidal column on the left side. I applied a [id number] stitch at its pedicle past the dentate line. This was done with a chromic 3-0. I made an incision around this hemorrhoidal column to the perianal skin with a blade 15. I excised this hemorrhoidal column above the plane of the sphincters along this incision with Metzenbaum scissors. I closed this incision with a running chromic 3-0 stitch. Additional hemostatic [id number] sutures were placed for oozing areas The same procedure was duplicated on the large hemorrhoidal column on the left. Again the hemorrhoid was grasped with Oliva grasper. I made a [id number] stitch at the pedicle. I made an incision around this to the perianal skin. I excised this hemorrhoidal column above the plane of the sphincters along this incision with scissors. I closed the incision with a running chromic 3-0 stitch and additional hemostatic sutures were placed A smaller hemorrhoidal column, external was on the left anterior and this was excised as well in a similar fashion. The incision was closed with the chromic 3-0 stitch. I observed for hemostasis. Once hemostasis was confirmed, I infiltrated the perianal area with Marcaine 0.5% for postop analgesia. Dressings were applied. The procedure was completed The patient tolerated the procedure well. There were no immediate compl ications. Initial and final counts of sponges and instruments were correct. Estimated blood loss was about 75 cc. The patient was extubated without difficulty and transferred to the recovery room with stable vital signs.
[2024-10-31] MEDS: fentaNYL citrate/PF 100 MCG/2 ML VIAL 50 MCG IVPUSH ×3 (11:51→12:37)
[2024-10-31] MEDS: oxyCODONE HCl Immed Release 5 MG TABLET PO (12:35)
== END 2024-10-31 13:47 | disposition home or self-care (01) ==
PROVIDERS: PCP Internal Medicine Geriatric Medicine; Visit Provider Surgery
PROC: (CPT 46260; principal; 2024-10-31 10:50)
DX: K64.8 Other hemorrhoids (principal); K64.4 Residual hemorrhoidal skin tags; I10 Essential (primary) hypertension; G47.33 Obstructive sleep apnea (adult) (pediatric); J45.909 Unspecified asthma, uncomplicated; E66.01 Morbid (severe) obesity due to excess calories; Z68.41 Body mass index [BMI] 40.0-44.9, adult; Z79.51 Long term (current) use of inhaled steroids; Z79.899 Other long term (current) drug therapy; H91.92 Unspecified hearing loss, left ear
CPT/HCPCS: 46260; 82947; 88304; J0131; J0330; J1100; J1885; J2003; J2405; J2704; J2795; J3010

== ENCOUNTER → 2024-10-31 08:43 | Outpatient (BNV) | payer OTHER, SELFPAY | PROVIDERS: PCP Internal Medicine Geriatric Medicine; Visit Provider Surgery | DX: K64.8 Other hemorrhoids (principal) | CPT/HCPCS: 46260 ==

== ENCOUNTER 2024-11-13 10:12 | Outpatient (AMB) | payer OTHER, SELFPAY ==
--- NOTE | 2024-11-13 10:15 | MHC.OFFVIS ---
Vital Signs 11/13/24 10:20 Height 56 ft Weight 264 lb 8.875 oz BMI 0.4 BP 118/62 Blood Pressure Location Lt brachial Position Sitting Intake Visit Reasons: S/P hemorrhoidectomy Intake Note: This patient presents for post-op assessment status post Exam under anesthesia hemorrhoidectomy x3 columns . Pt c/o; some blood in toilet paper with bm, doing sitz bath, denies constipation or any other concerns Allergies No Known Allergies Allergy (Verified 10/31/24 08:53) HPI HPI S/P hemorrhoidectomy: Details: He has here for a postop visit. He had undergone hemorrhoidectomy x2 columns last 10/31/2024. He tolerated procedure well. He admits to significant pain for the 1st few days postop but says he feels much better. He is bowel movements are much improved. He denies any significant pain anymore. He denies any bleeding. [facility] Medical History Diabetes Hemorrhoids with complication Somnolence, daytime Asthma TAMIA (obstructive sleep apnea) Morbid obesity HTN (hypertension) Asthma Bronchitis Hard of hearing Surgical History History of hemorrhoidectomy (~10/31/24) Hx of colonoscopy Hx of nasal polypectomy Family History Sister Ovarian cancer Father Lung cancer Mother Brain cancer Brother COPD (chronic obstructive pulmonary disease) Social History Household Members: Spouse Housing: Apartment Are you a primary urgent care physician assistant to a significant other at home: No Do you presently have visiting nurse or other home services: No Alcohol intake: former Patient Tobacco Use Status: Never used Tobacco e-Cigarette/Vaping Use: Never Used service: No Current occupational status: employed Current occupation: [employer] Review of Systems Const Denies chills and Denies fever(s) Physical Exam Vital Signs: Last Vital Signs BP 118/62 11/13/24 10:20 BMI result Body Mass Index 0.4 Const Other: Walks with a cane General: comfortable and no acute distress Nutritional Appearance: obese Resp Effort & Inspection: normal respiratory effort Cardio Rate: regular rate GI Other: Rectal exam shows the hemorrhoidectomy sites to be healing with some residual edema on the right, no pus, no obvious signs of infection Assessment & Plan Assessment & Plan (1) Hemorrhoids with complication: Code(s): K64.8 - Other hemorrhoids Category: Medical Plan: Status post hemorrhoidectomy x2 columns. He says he is doing very well postoperatively. He feels much improved. He has happy with the outcome. He still has some residual edema of the areas so I told him that we will do another wound check in about a month. He is continue with his hot Sitz baths. Coding Level of Care Code Global (74645) Diagnoses Hemorrhoids with complication K64.8
[2024-11-13 10:20] VITALS: BP 118/62
--- OUTSIDE RECORDS SUMMARY | 2024-11-13 11:36 | XMS_ITS | Encounter Summary ---
Author Organization [employer] Address [address] [place] [address] Care Team Providers Care Senior Software Qa Analyst Name Role Phone NameKirby MD Primary Care Provider [phone] Ami Lux PharmD Unavailable [phone] Reason for Visit * Reason Onset Date Comments Prior Authorization 11/10/2024 Encounter Details Date Type Department Care Team ([facility] st Contact Info) Description 11/10/2024 Telephone [facility] MEDICINE [address] [place] [address] Name, MD Kirby [address] [place] [address] Prior Authorization Social History Tobacco Use Types Packs/Day Years Used Date Smoking Tobacco: Never Passive Smoke Exposure: Never Smokeless Tobacco: Never Alcohol Use Standard Drinks/Week Comments Never 0 (1 standard drink = 0.6 oz pur e alcohol) Depression Answer Date Recorded Patient Health Questionnaire-9 Score 0 02/26/2024 Patient Health Questionnaire-9 Score 0 02/26/2024 Last PHQ-9: Questionnaire Data Not on file 0 02/26/2024 Housing Stability Answer Date Recorded What is your housing situation today? I have housing today, but I am worried about losing housing in the future 02/26/[address] you li ve. Do you have problems with any of the following? None of the above 02/26/2024 Food Insecurity Answer Date Recorded Within the past 12 months, y ou worried that your food would run out before you got money to buy more: Never True 01/18/2024 Within the past 12 months,th e food you bought just didn't last and you didn't have enough money to get more: Never True Transportation Answer Date Recorded In the past 12 months, has l ack of transportation kept you from medical appts, meetings, work or from getting things needed for daily living? No 01/18/2024 Utilities Answer Date Recorded In the past 12 months, has t he electric, gas, oil or water company threatened to shut off services in your home? No 01/18/2024 Depression Answer Date Recorded Patient Health Questionnaire-2 Score 0 02/26/2024 Internet Access Answer Date Recorded Internet Access Q1 No 04/28/2024 Internet Access Q2 I do not want or need it 09/2023 Sex and Gender Information Value Date Recorded Sex Assigned at Male 06/26/2022 10:38 AM EDT Legal Sex Male 10:38 AM EDT Gender Identity Male 06/26/2022 10:38 AM EDT Sexual Orientation Straight 06/26/2022 10 :38 AM EDT documented as of this encounter Miscellaneous Notes * Telephone Encounter - Carla Garibay - 11/13/2024 10:10 AM EDT Patient came to front facer seeking update on PA. Informed no response from as of yet. Pt informed has new insurance ([employer]). Analysis Evaluator asked for card which pt provided. FD staff checked eligibility and confirmed active. Demographics updated. Analysis Evaluator informed pt insurance chg likely cause of delay, ensured pt PA would be processed today to [employer] and will follow up with result, estimated time frame 24-48 hours. Pt verbalized understanding. Pt req advise on what to do in the meantime with regard to missed doses and telegraphic typewriter installer offered to get a nurse for assistance with medical questions which pt declined. PA generated in [facility]. Pending approval/denial. Enriquez: [id number] PA Rx #: [id number] * Telephone Encounter - Carla Garibay - 11/11/2024 3:13 PM EDT PA for Trulicity from [employer] generated and placed on PCP desk for signature. * Telephone Encounter - River Chunnandez - 11/10/2024 9:30 AM EDT TC from pt stating that medication dulaglutide (Trulicity) 4.5 MG/0.5ML solution pen-injector needsPA for pt to be able to pick it up. Contact pt at [phone] documented in this encounter Plan of Treatment Upcoming Encounters Date Type Department Care Team (Late st Contact Info) Description 02/18/2025 3:15 PM EDT Office Visit [facility] MEDICINE [address] [place] [address] Name, MD Kirby [address] [place] [address] 03/09/2025 3:00 PM EDT Office Visit [facility] ADULT DENTAL [address] [place] [address] Pavel Rossy [address] [place] [address] documented as of this encounter Goals Goal Patient Goal Type Associated Problems Recent Progress Patient-Stated? Author Blood Pressure < 140/90 Blood Pressure 122/72( 025 4:36 PM EST) No Puia, Ami, PharmD Record your blood pressure periodically, as directed. Blood Pressure No Puia, Ami, PharmD documented as of this encounter Visit Diagnoses Not on filedocumented in this encounter Additional Health Concerns Assessment Noted Time PHQ-9 Depression Total Score: 0 02/26/20 24 3:01 PM EDT documented as of this encounter Care Teams Senior Software Qa Analyst Relationship Specialty Start Date End Date Name, MD Kirby [address] [place] [id number] PCP - General Family Medicine 06/22/21 Puia, Ami, PharmD [address] [place] [address] Pharmacist Internal Medicine 10/25/21 documented as of this encounter
--- OUTSIDE RECORDS SUMMARY | 2024-11-13 11:36 | XMS_ITS | Encounter Summary ---
Author Organization [employer] Address [address] [place] [address] Care Team Providers Care Home Aid Name Role Phone Name, Kirby MCQUEEN Primary Care Provider [phone] Ami Lux PharmD Unavailable [phone] Reason for Visit * Reason Comments Med Change Request Encounter Details Date Type Department Care Team ([facility] st Contact Info) Description 03/20/2024 Refill [facility] MEDICINE [address] [place] [address] Ivanna Ulloa NP [address] [place] [address] Type 2 diabetes mellitus with hyperglycemia, without long-term current use of insulin ([facility]) Social History Tobacco Use Types Packs/Day Years [...] Recorded Patient Health Questionnaire-2 Score 0 02/26/2024 Sex and Gender Information Value Date Recorded Sex Assigned at Male 06/26/2022 10:38 AM EDT Legal Sex Male 10:38 AM EDT Gender Identity Male 06/26/2022 10:38 AM EDT Sexual Orientation Straight 06/26/2022 10 :38 AM EDT documented as of this encounter Plan of Treatment Upcoming Encounters Date Type Department Care Team (Late st Contact Info) Description 02/18/2025 3:15 PM EDT Office Visit [facility] MEDICINE [address] [place] [address] Kirby Mendenhall MD [address] [place] [address] 03/09/2025 3:00 PM EDT Office Visit [facility] ADULT DENTAL [address] [place] [address] Rossy Zhao [address] [place] [address] documented as of this encounter Goals Goal Patient Goal Type Associated Problems Recent Progress Patient-Stated? Author Blood Pressure < 140/90 Blood Pressure 122/72( 025 4:36 PM EST) No Puia, Ami, PharmD Record your blood pressure periodically, as directed. Blood Pressure No Puia, Ami, PharmD documented as of this encounter Visit Diagnoses Diagnosis Type 2 diabetes mellitus with hyperglycemia, without long-term current use of insulin ([facility]) documented in this encounter Additional Health Concerns Assessment Noted Time PHQ-9 Depression Total Score: 0 02/26/20 24 3:01 PM EDT documented as of this encounter Care Teams Home Aid Relationship Specialty Start Date End Date Kirby Mendenhall MD [address] [place] [address] PCP - General Family Medicine 06/22/21 Ami Lux PharmD [address] [place] [address] Pharmacist Internal Medicine 10/25/21 documented as of this encounter
--- OUTSIDE RECORDS SUMMARY | 2024-11-13 11:36 | XMS_ITS | Encounter Summary ---
Author Organization [employer] Address [address] [place] [address] Care Team Providers Care It Technical Support Specialist Name Role Phone Name, Kirby MCQUEEN Primary Care Provider [phone] Ami Lux PharmD Unavailable [phone] Reason for Visit * Reason Comments Med Refill Encounter Details Date Type Department Care Team ([facility] st Contact Info) Description 10/22/2024 Refill [facility] MEDICINE [address] [place] [address] [facility] [address] [place] [address] Hypertension, unspecified type Social History Tobacco Use Types Packs/Day Years [...] Description 02/18/2025 3:15 PM EDT Office Visit [facility] MEDICINE [address] [place] [address] Kirby Mendenhall MD [address] [place] [address] 03/09/2025 3:00 PM EDT Office Visit [facility] ADULT DENTAL [address] [place] [address] Pavel, Rossy [address] [place] [address] documented as of this encounter Goals Goal Patient Goal Type Associated Problems Recent Progress Patient-Stated? Author Blood Pressure < 140/90 Blood Pressure 122/72( 025 4:36 PM EST) No Puia, Ami, PharmD Record your blood pressure periodically, as directed. Blood Pressure No Puia, Ami, PharmD documented as of this encounter Visit Diagnoses Diagnosis Hypertension, unspecified type documented in this encounter Additional Health Concerns Assessment Noted Time PHQ-9 Depression Total Score: 0 02/26/20 3:01 PM EDT documented as of this encounter Care Teams It Technical Support Specialist Relationship Specialty Start Date End Date Kirby Mendenhall MD [address] [place] [address] PCP - General Family Medicine 06/22/21 Ami Lux, Ashley [address] [place] [address] Pharmacist Internal Medicine 10/25/21 documented as of this encounter
--- OUTSIDE RECORDS SUMMARY | 2024-11-13 11:36 | XMS_ITS | Clinical Summary ---
Author Organization [facility] Address [address] [place] [address] Care Team Providers Care Enamel Burner Name Role Phone Name, Kirby MCQUEEN Primary Care Provider [phone] Ami Lux PharmD Unavailable Allergies Active Allergy Reactions Criticality Noted Date Comments Amlodipine High 11/08/2021 Other reaction(s): Lip swelling Medications Multiple Vitamin (Multi-Vitamin) tablet OTC PER PATIENT Active albuterol (2.5 MG/3ML) 0.083% nebulizer solution INHALE 1 AMPULE USING A NEBULIZER THREE TIMES DAILY 08/18/20 22 Active Blood Pressure Monitor misc USE DIRECTED EVERY DAY TO MONITOR BLOOD PRESSURE 02/21/20 23 Active albuterol 108 (90 Base) MCG/ACT inhalerIndicati ons:Moderate persistent asthma, unspecified whether complicated Inhale 2 puffs every 6 (six) hours if needed for wheezing. Every 4-6 hours as needed for cough, wheeze, SOB 18 g 11 06/27/20 23 Active Blood Glucose Monitoring Suppl ([employer] Mercedita Lite) w/Device kit TEST BLOOD SUGAR ONCE DAILY (ALTERNATE BETWEEN FASTING BLOOD GLUCOSE AND 2 HOURS AFTER A MEAL DIRECTED) 06/01/20 23 Active Vitron-C 65-125 MG tablet Take 1 tablet by mouth at bedtime. 04/11/20 23 Active pen needle 32G x 4 mm miscIndications :Type 2 diabetes mellitus with hyperglycemia, without long-term current use of insulin (CMS/HCC) Use as instructed weekly with trulicity 100 each 12 12/11/19 24 Active chlorthalidone (Hygroton) 25 MG tabletIndicatio ns:Hypertension , unspecified type Take 1 tablet by mouth every morning. 90 tablet 3 03/25/20 24 Active metoprolol succinate XL (Toprol XL) 25 MG 24 hr tabletIndicatio ns:Hypertension , unspecified type Take 1 tablet (25 mg) by mouth Once per day. Do not crush or chew. 90 tablet 3 03/25/20 24 Active losartan (Cozaar) 100 MG tabletIndicatio ns:Hypertension , unspecified type Take 1 tablet (100 mg) by mouth in the evening. 90 tablet 03/25/20 24 Active dulaglutide (Trulicity) 4.5 MG/0.5ML solution pen-injector Inject 4.5 mg under the skin 1 (one) time per week. 4 each 04/30/20 24 Active FREESTYLE LITE test stripIndication s:Prediabetes USE DIRECTED TO TEST BLOOD SUGAR ONCE DAILY (ALTERNATE BETWEEN FASTING BLOOD GLUCOSE AND 2 HOURS AFTER A MEAL DIRECTED) 50 strip 07/31/20 24 Active Dulera 200-5 MCG/ACT inhalerIndicati ons:Moderate persistent asthma, unspecified whether complicated INHALE 2 PUFFS BY MOUTH TWICE DAILY IN THE MORNING AND IN THE EVENING. RINSE MOUTH AFTER USING. 13 g 07/31/20 24 Active Incruse Ellipta 62.5 MCG/ACT aerosol powderIndicatio ns:Moderate persistent asthma, unspecified whether complicated INHALE 1 PUFF BY MOUTH EVERY DAY AT THE SAME TIME 30 each 07/31/20 24 Active TRUEplus Lancets 33G miscIndications :Prediabetes USE DIRECTED TO TEST BLOOD SUGAR ONCE DAILY 100 each 07/31/20 24 Active Viagra 100 MG tablet TAKE 1 TABLET 1 HOUR BEFORE SEXUAL RELATIONS ONCE DAILY NEEDED. 10 tablet 08/28/19 25 Active montelukast (Singulair) 10 MG tabletIndicatio ns:Hypertension , unspecified type TAKE 1 TABLET BY MOUTH EVERY EVENING 90 tablet 1 10/22/19 25 Active montelukast (Singulair) 10 MG tabletIndicatio ns:Hypertension , unspecified type TAKE 1 TABLET BY MOUTH EVERY EVENING 90 tablet 07/09/20 24 025 Discontinued Active Problems Problem Noted Date Diagnosed Date Dental caries 09/01/2024 Impacted tooth 09/01/2024 Missing teeth, acquired 09/01/2024 Retained dental root 09/01/2024 Moderate persistent asthma with exacerbation Assessment & Plan (12/12/2023 5:33 PM EDT): Pt with expiratory wheeze, trial using inhaler (2 puffs daily) if no improvement, add prednisone as prescribed, pt aware to increase hydration and monitor sugars Type 2 diabetes mellitus wit h hyperglycemia, without long-term current use of insulin 12/11/2023 Assessment & Plan (01/18/2024 6:08 PM EDT): Increase trulicity to 1.5 mg, Medication Indications, side effects and duration of therapy reviewed, pt aware to call clinic for worsening symptoms or failure to resolve Monitor for hypoglycemia Follow up in 4-6 weeks Assessment & Plan (12/12/2023 5:37 PM EDT): Reviewed options for management, given active symptoms of hyperglycemia, pt opts for therapy. Declines oral medications. Rx for weekly trulicity sent. Side effects including black box warning reviewed - referral to nutrition - referral to DNE - reviewed necessity of eye exam and foot checks - follow up in 1 month - discontinue medication immediately should any hypoglycemic events occur. Dental calculus 04/10/2023 Hypertensive disorder 07/19/2022 Assessment & Plan (12/12/2023 5:34 PM EDT): Above goal today, pt reports compliance with medications and reports is at goal at home, continue home monitoring. Consider alternative to beta carol due to concurrent asthma with frequent exacerbations. Defer to pcp Moderate persistent asthma 07/19/2022 Obesity 07/19/2022 Assessment & Plan (12/12/2023 5:35 PM EDT): Motivated to lose weight, referral to nutrition, Obstructive sleep apnea syndrome 07/19/2022 Resolved Problems Problem Noted Date Diagnosed Date Resolved Date Prediabetes 07/19/2022 02/26/2024 Encounters Date Type Department Care Team Description 11/11/2024 Telephone [facility] [address] [place] [phone] Name, MD Kirby Med Refill 11/10/2024 Telephone [facility] [address] [place] [address] Kirby Mendenhall MD Prior Authorization 10/31/2024 Orders Only GENERIC EXTERNAL DATA DEPARTMENT Provider, Generic External Data 10/22/2024 Refill [facility] [address] [place] [address] [place], Sarah, LEAD NUCLEAR MEDICINE TECHNOLOGIST Hypertension, unspecified type 10/15/2024 4:00 PM EST Office Visit [facility] [address] [place] [phone] Kirby Mendenhall MD Type 2 diabetes mellitus with hyperglycemia, without long-term current use of insulin ([facility]) (Primary Dx); Hypertension, unspecified type; Moderate persistent asthma without complication; Screening for prostate cancer 09/29/2024 Telephone [facility] [address] [place] [phone] Sebastian Lentz, DDS 09/01/2024 2:00 PM EST Office Visit [facility] [address] [place] [phone] Rossy Zhao Dental calculus (Primary Dx); Dental caries; Impacted tooth; Missing teeth, acquired; Retained dental root 08/28/[address] [address] Kirby Mendenhall MD from Last 3 Months Immunizations Name Administration Dates Next Due HepB-CpG 02/02/2023,12/19/2022 Influenza injectable quadriv alent preservative free 06/27/2023 Influenza, IIV3, injectable 05/31/2011 Influenza, seasonal, injecta ble, preservative free 05/27/2024,08/02/2022 Pfizer Covid-19 Vaccine 12+ 05/27/2024,0 04/10/2022,05/27/2021,2020,11/10/2020 Pfizer Covid-19 Vaccine 12+ Bivalent 01/11/2023 Pneumococcal Conjugate PCV 20 05/10/2022 Tdap 05/10/2022 Zoster, Recombinant 02/02/2022,11/08/2021 Social History Tobacco Use Types Packs/Day Years Used Date Smoking Tobacco: Never Passive Smoke Exposure: Never Smokeless Tobacco: Never Tobacco Cessation:Counseling Given: Not Answered Alcohol Use Standard Drinks/Week Comments Never 0 [...] Orientation Straight 06/26/2022 10 :38 AM EDT Last Filed Vital Signs Vital Sign Reading Time Taken Comments Blood Pressure 122/72 10/15/2024 4:36 PM EST Pulse 80 10/15/2024 4:36 PM EST Temperature 36.9 ??C (98.4 ??F) 10/15/2024 4:36 PM ES T Respiratory Rate 14 10/15/2024 4:36 PM EST Oxygen Saturation 96% 10/15/2024 4:36 PM EST Inhaled Oxygen Concentration - - Weight 119 kg (263 lb) 10/15/2024 4:36 PM EST Height 167.6 cm (5' 6 ) 10/15/2024 4:36 PM EST Body Mass Index 42.45 10/15/2024 4:36 PM EST Plan of Treatment Upcoming Encounters Date Type Department Care Team (Late st Contact Info) Description 02/18/2025 3:15 PM EDT Office Visit [facility] [address] [place] [address] Name, MD Kirby [address] [place] [address] 03/09/2025 3:00 PM EDT Office Visit [facility] [address] [place] [address] Rossy Zhao [address] [place] [address] Health Maintenance Due Date Last Done Comments CT Colonography 1970 Colonoscopy 1970 Colorectal Cancer Screening 1970 FIT DNA/Cologuard 1970 FIT 1970 FOBT 1970 Sigmoidoscopy 1970 Lipid Panel 06/27/2024 06/27/2023, 02/25, 07/07/2022, Additional history exists Diabetes: Urine Protein Screening 12/10/2024 12/11/2023, 06/20/2021 Alcohol/Substance Use Screening 02/25/2025 02/26/2024 Depression Screening 02/25/2025 02/26/2024, 02/26/20 24 SDOH Screening 02/25/2025 02/26/2024 Dental Oral Exam 03/02/2025 09/01/2024, 03/21/2023 Dental Prophylaxis 03/02/2025 09/01/2024, 04/10/2023 Diabetes: Hemoglobin A1C 04/14/2025 025, 02/26/2024, 12/11/2023, Additional history exists Diabetes: Foot Exam 05/27/2025 05/27/2024, 05/27/2024, 05/27/2024, Additional history exists Dental X-Ray: Bitewings 09/02/2025 09/01/19, 03/21/2023, 06/29/2021 Tobacco Screening 10/15/2025 10/15/2024 Dental X-Ray: Full Mouth 03/22/2026 03/21/2023 Eye Exam 06/27/2026 06/27/2024, 1108/2023, 06/27/2024, Additional history exists DTaP/Tdap/Td Vaccines (2 - Td or Tdap) 05/10/2032 05/10/2022 RSV Patients and Patients Aged 60 years or older (1 - 1-dose 75+ series) 2043 HIV Screening Completed 06/20/2021 Hepatitis C Screening Completed 06/20/2021 Zoster Vaccines Completed 02/02/2022, 11/08/2021 Pneumococcal Vaccine: 50+ Years Completed 05/10/2022 Hepatitis B Vaccines Completed 02/02/2023, 12/20/19 COVID-19 Vaccine Completed 05/27/2024, , 04/10/2022, Additional history exists Influenza Vaccine Completed 05/27/2024, , 08/02/2022, Additional history exists HIB Vaccines Aged Out No longer eligi ble based on patient's age to complete this topic HPV Vaccines Aged Out No longer eligi ble based on patient's age to complete this topic Hepatitis A Vaccines Aged Out No long er eligible based on patient's age to complete this topic IPV Vaccines Aged Out No longer eligi ble based on patient's age to complete this topic Meningococcal Vaccine Aged Out No ching ernie eligible based on patient's age to complete this topic RSV under 20 months Aged Out No longe r eligible based on patient's age to complete this topic Rotavirus Vaccines Aged Out No longer eligible based on patient's age to complete this topic Goals Goal Patient Goal Type Associated Problems Recent Progress Patient-Stated? Author Blood Pressure < 140/90 Blood Pressure 122/72( 025 4:36 PM EST) No Amandaia Ami, PharmD Record your blood pressure periodically, as directed. Blood Pressure No Puia, Ami, PharmD Procedures Procedure Name Priority Date/Time Associated Diagnosis Comments GROSS AND MICROSCOPIC LEVEL 3 Routine 10/31/2024 10:39 AM EST GLUCOSE, WHOLE BLOOD Routine 10/31/2024 9:03 AM EST POCT GLYCATED HEMOGLOBIN, TOTAL Routine 10/15/2024 4:38 PM EST Type 2 diabetes mellitus with hyperglycemia, without long-term current use of insulin ([facility]) POCT GLUCOSE Routine 10/15/2024 4:37 PM EST Type 2 diabetes mellitus with hyperglycemia, without long-term current use of insulin ([facility]) PERIODIC ORAL EVALUATION - ESTABLISHED PATIENT Routine 09/01/2024 2:00 PM EST INTRAORAL - PERIAPICAL EACH ADDITIONAL RADIOGRAPHIC IMAGE Routine 09/01/2024 2:00 PM EST Dental calculus Dental caries Impacted tooth Missing teeth, acquired INTRAORAL - PERIAPICAL EACH ADDITIONAL RADIOGRAPHIC IMAGE Routine 09/01/2024 2:00 PM EST Dental calculus Dental caries Impacted tooth Missing teeth, acquired INTRAORAL - PERIAPICAL FIRST RADIOGRAPHIC IMAGE Routine 09/01/2024 2:00 PM EST Dental calculus Dental caries Impacted tooth Missing teeth, acquired ORAL HYGIENE INSTRUCTIONS Routine 09/01/2024 2:00 PM EST Dental calculus Dental caries Impacted tooth Missing teeth, acquired BITEWINGS - 4 RADIOGRAPHIC IMAGES Routine 09/01/2024 2:00 PM EST Dental calculus Dental caries Impacted tooth Missing teeth, acquired Full PROPHYLAXIS - ADULT Routine 09/01/2024 2:00 PM EST Dental calculus ALBUMIN, RANDOM URINE W/CREATININE Routine 12/11/2023 3:23 PM EDT Type 2 diabetes mellitus with hyperglycemia, without long-term current use of insulin ([facility]) LIPID PANEL, STANDARD Routine 06/27/2023 3:52 PM EDT Hypertension, unspecified type Obstructive sleep apnea syndrome INTRAORAL - COMPLETE SERIES OF RADIOGRAPHIC IMAGES Routine 03/21/2023 2:00 PM EDT Dental caries ZZZ HISTORICAL HEPATITIS C AB W/REFL TO HCV RNA, QN, PCR Routine 06/20/2021 3:53 PM EDT HIV 1/2 ANTIGEN/ANTIBODY, FOURTH GENERATION W/RFL Routine 06/20/2021 3:53 PM EDT from Last 3 Months or Most Recently Relevant to Health Maintenance Results * Gross and Microscopic Level 3 (10/31/2024 10:39 AM EST) 10/31/2024 10:3 9 AM EST 10/31/2024 12:19 PM EST [facility] - 11/03/2024 4:17 PM EDT ----- ------- Name: Sarthak Gama Jr ?Age/Sex: 54/M ? : 1970 Unit#: [id number] ?? Attend Dr: Augusto Purcell MD ?Re10/31/24 ?Status: DEP SDC ? Location: HO.SSS ?Disch: ? ----- ------- SPEC : [id number] ? RECD: 10/31/24-1218 ? STATUS: ??SOUT ? REQ NUM: [id number] ? DIRK: 10/31/24 ? SUBM DR: Augusto Purcell MD ? ENTERED: ??10/31/24 ?SP TYPE: Surgical ? OTHR DR: Kirby Mendenhall MD ? ORDERED: ??Gross Micro L3 ? Diagnosis ?? Hemorrhoids, hemorrhoidectomy: ??Benign skin and benign squamous and colonic mucosa with ?? underlying ectatic and irregular vessels consistent with hemorrhoids. ?Clinical History Hemorrhoids ?Microscopic Description Microscopic sections reviewed. ? Material Received ?? Hemorrhoids ? Gross Description Received in formalin labeled ?hemorrhoids? are 3 portions of glabrous skin and anal mucosa together measuring 4.5 x 2.5 x 1.4 cm in greatest dimension. ??The skin surface is brown and wrinkled. ??The underside is red-pink. ??Sectioning reveals a red-pink and pink white cut surface with a few dilated, blood-filled vessels. ??Adjustment Clerk sections are submitted for microscopic examination, 3 pieces in cassette A. ??([facility]) Copies To: ?? Augusto Purcell MD ?? [facility] General Surgeons ?? [address] ?? [place] [address] ?? [phone] ?? Name,Kirby MCQUEEN ?? [address] ?? [place] [address] ?? [phone] ----- ------- Signed (signature on file) Tanya [place] 11/03/24 1617 ? ----- ------- ? END OF REPORT ? Generic External Data Provider LAB CYTOLOGY ORDE RABLES Final Result Performing Organization Address [facility] Co de Phone Number [facility] [address] [place] [phone] * Glucose, Whole Blood (10/31/2024 9:03 AM EST) [facility] Glucose, Whole Blood 86 60 - 115 mg/dL [facility] Comment:METER #: [id number] 10/31/2024 9:03 AM EST 10/31/2024 9:12 AM EST Generic External Data Provider LAB BLOOD ORDERAB LES Final Result Performing Organization Address [facility] Co de Phone Number [facility] [address] [place] [address] [phone] * POCT HGB A1C (10/15/2024 4:38 PM EST) [facility] Hemoglobin A1C 4.9 4.0 - 6.0 % QC Media Lot # [id number] Lot# Expiration Date [id number] Blood 10/15/2024 4:38 PM EST Kirby Mendenhall MD POINT OF CARE TEST ENTER/EDIT OR DERABLES Final Result * POCT Glucose (10/15/2024 4:37 PM EST) Glucose Blood, POC 101 60 - 200 mg/dL QC Media Lot # [id number] Lot# Expiration Date 53 Blood Capillary blood specimen / Unknown 10/15/2024 4:37 PM EST Kirby Mendenhall MD POINT OF CARE TEST ENTER/EDIT OR DERABLES Final Result * (ABNORMAL) Albumin, Random Urine W/Creatinine (12/11/2023 3:23 PM EDT) Creatinine, Urine 154.85 mg/dL [facility] Microalbumin Urine 136.0 mg/L [facility] Microalbum Creatinine Ratio Ur 87.8(H) <30 ug/mg cr [facility] Comment:Albumin/Creatinine R atio Reference Ranges: Normal: < 30 ug/mg creatinine Microalbuminuria: 30 - 300 ug/mg creatinineClinical Albuminuria: > 300 ug/mg creatinine Urine (Urine, Random) 12/11/2023 3:23 PM EDT 12/11/2023 3:54 PM EDT Ivanna Ulloa APPAREL SALES LEADER LAB URINE ORDERABLES Final Resul t [facility] [address] [place] [address] [phone] * (ABNORMAL) Lipid Panel, Standard (06/27/2023 3:52 PM EDT) Triglycerides 195(H) <150 mg/dL [facility] Comment:Desirable Triglyceri de: less than 150 mg/dLBorderline High Triglyceride 150-199 mg/dLHigh Triglyceride: 200-499 mg/dLVery High Triglyceride: greater than or equal to 5OO mg/dL Cholesterol 165 <200 mg/dL [facility] Comment:Desirable Cholestero l: less than 200 mg/dLBorderline High Cholesterol: 200-239 mg/dLHigh Cholesterol: greater than 239 mg/dL LDL Cholesterol Calculated 87 <100 mg/dL [facility] Comment:Desirable LDL: less than 100 mg/dLNear Optimal/Above Optimal LDL: 110- 129 mg/dLBorderline High LDL: 130-159 mg/dLHigh LDL: 160-189 mg/dLVery High LDL: greater than or equal to 190 mg/dL HDL Cholesterol 39(L) >40 mg/dL [facility] Comment:Desirable HDL: great er than 40 mg/dL Note: This HDL assay may give artificially low results in patients with liver disease. Blood Venous blood specimen / Unknown 06/27/2023 3:52 PM EDT 06/27/2023 5:19 PM EDT Kirby Mendenhall MD LAB BLOOD ORDERABLES Final Resul t [facility] [address] [place] [phone] * HEPATITIS C AB W/REFL TO HCV RNA, QN, PCR (06/20/2021 3:53 PM EDT) HEPATITIS C ANTIBODY NON-REACT KEVON NON-REACT KEVON [facility] INDEX 0.02 <1.00 [facility] Comment: ?? HCV antibody was non-reactive. There is no laboratory ?? evidence of HCV infection. ?? In most cases, no further action is required. However, if recent HCV exposure is suspected, a test for HCV RNA (test code 58730) is suggested. ?? For additional information please refer to http://education.CardioLogs/faq/REW23x3 (This link is being provided for informational/ educational purposes only.) ?? 06/20/2021 3:53 PM EDT Marielle Elder DO HISTORICAL/NON ORDERABLE LAB S Final Result Performing Organization Address [facility] Co de Phone Number [facility] [address] * HIV 1/2 ANTIGEN/ANTIBODY,FOURTH GENERATION W/RFL (06/20/2021 3:53 PM EDT) HIV-1/2 ANTIGEN AND ANTIBODIES, 4TH GENERATION W/ REFLEX NON-REACT KEVON NON-REACT KEVON [facility] Comment: HIV-1 antigen and HIV-1/HIV-2 antibodies were not detected. There is no laboratory evidence of HIV infection. ?? PLEASE NOTE: This information has been disclosed to you from records whose confidentiality may be protected by state law. ??If your state requires such protection, then the state law prohibits you from making any further disclosure of the information without the specific written consent of the person to whom it pertains, or as otherwise permitted by law. A general authorization for the release of medical or other information is NOT sufficient for this purpose. ? For additional information please refer to http://education.CardioLogs/faq/FQJ365 (This link is being provided for informational/ educational purposes only.) ? The performance of this assay has not been clinically validated in patients less than 2 years old. ?? 06/20/2021 3:53 PM EDT us Marielle Elder DO LAB BLOOD ORDERABLES Final R esult Performing Organization Address [facility] de Phone Number [facility] [address] from Last 3 Months or Most Recently Relevant to Health Maintenance Insurance [facility] [facility] Care Teams Enamel Burner Relationship Specialty Start Date End Date Name, MD Kirby [address] [place] [address] PCP - General Family Medicine 06/22/21 Ami Lux PharmD [address] [place] [address] Pharmacist Internal Medicine 10/25/21
--- OUTSIDE RECORDS SUMMARY | 2024-11-13 11:36 | XMS_ITS | Encounter Summary ---
Author Organization [employer] Address [address] [place] [address] Care Team Providers Care Ivf Embryologist Name Role Phone Name, Kirby MCQUEEN Primary Care Provider [phone] Ami Lux PharmD Unavailable [phone] Reason for Visit * Reason Onset Date Comments Med Refill 11/11/2024 Encounter Details Date Type Department Care Team ([facility] st Contact Info) Description 11/11/2024 Telephone [facility] [address] [place] [address] Name, MD Kirby [address] [place] [address] Med Refill Social History Tobacco Use Types Packs/Day Years [...] encounter Miscellaneous Notes * Telephone Encounter - Evelyn Fowler MA - 11/13/2024 8:59 AM EDT Form has been signed by the PCP and faxed to [facility]. Form is sent in for scanning. * Telephone Encounter - Carla Garibay - 11/11/2024 3:14 PM EDT PA for Trulicity generated and placed on PCP desk for signature. * Telephone Encounter - Kirby Mendenhall MD - 11/11/2024 2:24 PM EDT Talk to the PA specialist to see what is the issue. If he needs a PA we can do it. If the pharmacy does not have the medication we can try different pharmacy. Please let me know. * Telephone Encounter - Meche Calixto RN - 11/11/2024 1:47 PM EDT TC placed to pt regarding refill request for dulaglutide (Trulicity) 4.5 MG/0.5ML solution pen-injector and PA. Advised pt that message was sent to PA specialist regarding the medication. Pt states he hasn't had the medication for 2 weeks and he is a diabetic and needs the medication. Advised pt RNwill send a message to PCP and PA specialist regarding the medication. Pt asked what he is supposedto do without medication as he does not want to end up in the ED. Advised pt RN will send a messageto PCP for recommendations as he does not have the medication. Pt asked again what he should do since he does not have the medication. RN advised pt that RN will send a message to PCP to review and ad vise on plan. Pt states, Ok. I will just go to the ER then. Bye. Message forwarded to PCP and PA specialist to review and advise. * Telephone Encounter - Melissa Mckeon - 11/11/2024 10:34 AM EDT Patient walked in requesting medication refill on dulaglutide (Trulicity) 4.5 MG/0.5ML solution pen-injector but he may need a new PA. Please contactpatient to number on chart if any questions or concerns. documented in this encounter Plan of Treatment Upcoming Encounters Date Type Department Care Team (Late st Contact Info) Description 02/18/2025 3:15 PM EDT Office Visit [facility] [address] [place] [address] Name, MD Kirby [address] [place] [address] 03/09/2025 3:00 PM EDT Office Visit [facility] [address] [place] [address] Rossy Zhao [address] [place] [address] documented as of this encounter Goals Goal Patient Goal Type Associated Problems Recent Progress Patient-Stated? Author Blood Pressure < 140/90 Blood Pressure 122/72( 025 4:36 PM EST) No Ami Lux PharmD Record your blood pressure periodically, as directed. Blood Pressure No Ami Lux PharmD documented as of this encounter Visit Diagnoses Not on filedocumented in this encounter Additional Health Concerns Assessment Noted Time PHQ-9 Depression Total Score: 0 02/26/20 24 3:01 PM EDT documented as of this encounter Care Teams Ivf Embryologist Relationship Specialty Start Date End Date Name, MD Kirby [address] [place] [address] PCP - General Family Medicine 06/22/21 Ami Lux PharmD [address] [place] [address] Pharmacist Internal Medicine 10/25/21 documented as of this encounter
--- OUTSIDE RECORDS SUMMARY | 2024-11-13 11:36 | XMS_ITS | Encounter Summary ---
Author Organization [employer] [facility] Address [address] [place] [address] Care Team Providers Care Anesthesiology Technologist Name Role Phone Name, Kirby MCQUEEN Primary Care Provider [phone] Ami Lux PharmD Unavailable [phone] Reason for Visit * Reason Comments Med Refill Encounter Details Date Type Department Care Team ([facility] Contact Info) Description 01/09/2023 Refill [facility] [address] [place] [address] Name, MD Kirby [address] [place] [address] Chronic pain of left knee; Moderate persistent asthma, unspecified whether complicated Social History Tobacco Use Types Packs/Day Years Used Date Smoking Tobacco: Never Smokeless Tobacco: Never Alcohol Use Standard Drinks/Week Comments Not Currently 0 (1 standard drink = 0.6 oz pur e alcohol) Depression Answer Date Recorded Patient Health Questionnaire-9 Score 0 08/02/2022 Depression Answer Date Recorded Patient Health Questionnaire-2 Score 0 08/02/2022 Sex and Gender Information Value Date Recorded Sex Assigned at Male 06/26/2022 10:38 AM EDT Legal Sex Male 10:38 AM EDT Gender Identity Male 06/26/2022 10:38 AM EDT Sexual Orientation Straight 06/26/2022 10 :38 AM EDT COVID-19 Exposure Response Date Recorded In the last 10 days, have yo u been in contact with someone who was confirmed or suspected to have Coronavirus/COVID-19? No / Unsure 01/11/2023 2:41 PM EDT documented as of this encounter Plan of Treatment Upcoming Encounters Date Type Department Care Team ([facility] st Contact Info) Description 02/18/2025 3:15 PM EDT Office Visit [facility] [address] [place] [address] Name, [place] [address] 03/09/2025 3:00 PM EDT Office Visit [facility] ADULT DENTAL [address] [place] [address] Frederic Zhaoaris [address] [place] [address] documented as of this encounter Goals Goal Patient Goal Type Associated Problems Recent Progress Patient-Stated? Author Blood Pressure < 140/90 Blood Pressure 122/72( 025 4:36 PM EST) No Puia, Ami, PharmD Record your blood pressure periodically, as directed. Blood Pressure No PuiaFreddyAmi, PharmD documented as of this encounter Visit Diagnoses Diagnosis Chronic pain of left knee Moderate persistent asthma, unspecified whether complicated documented in this encounter Additional Health Concerns Assessment Noted Time PHQ-9 Depression Total Score: 0 08/02/20 22 3:23 PM EST documented as of this encounter Care Teams Anesthesiology Technologist Relationship Specialty Start Date End Date Name, [place] [address] PCP - General Family Medicine 06/22/21 Ami Lux, [place] [address] Pharmacist Internal Medicine 10/25/21 documented as of this encounter
--- OUTSIDE RECORDS SUMMARY | 2024-11-13 11:36 | XMS_ITS | Encounter Summary ---
Author Organization [employer] [facility] Address [address] [place] [address] Care Team Providers Care Pediatrics Hospitalist Name Role Phone Name, Kirby MCQUEEN Primary Care Provider [phone] Ami Lux PharmD Unavailable [phone] Reason for Visit * Reason Comments Med Refill Encounter Details Date Type Department Care Team ([facility] Contact Info) Description 01/09/2023 Refill [facility] [address] [place] [address] Name, MD Kirby [address] [place] [address] Chronic pain of left knee; Moderate persistent [...] Upcoming Encounters Date Type Department Care Team ([facility] st Contact Info) Description 02/18/2025 3:15 PM EDT Office Visit [facility] [address] [place] [address] Name, [place] [address] 03/09/2025 3:00 PM EDT Office Visit [facility] ADULT DENTAL [address] [place] [address] Frederic Zhaoaris [address] [place] [address] documented as of this encounter Goals Goal [...] documented as of this encounter Care Teams Pediatrics Hospitalist Relationship Specialty Start Date End Date Name, [place] [address] PCP - General Family Medicine 06/22/21 Ami Lux, [place] [address] Pharmacist Internal Medicine 10/25/21 documented as of this encounter
--- OUTSIDE RECORDS SUMMARY | 2024-11-13 11:36 | XMS_ITS | Encounter Summary ---
Author Organization [employer] Address [address] [place] [address] Care Team Providers Care Airfreight Operations Agent Name Role Phone NameKirby MD Primary Care Provider [phone] Ami Lux PharmD Unavailable [phone] Reason for Visit * Reason Comments Diabetes Encounter Details Date Type Department Care Team ([facility] st Contact Info) Description 10/15/2024 4:00 PM EST Office Visit [facility] [address] [place] [address] Name, MD Kirby [address] [place] [address] Type 2 diabetes mellitus with hyperglycemia, without long-term current use of insulin ([facility]) (Primary Dx); Hypertension, unspecified type; Moderate persistent asthma without complication; Screening for prostate cancer Social History Tobacco Use Types Packs/Day Years [...] the past 12 months, has t he [employer], gas, oil or water company threatened to [...] AM EDT documented as of this encounter Last Filed Vital Signs Vital Sign Reading [...] Mass Index 42.45 10/15/2024 4:36 PM EST documented in this encounter Progress Notes * Kirby Mendenhall MD - 10/15/2024 4:00 PM EST Images from the original note were not included. Subjective Patient ID: Sarthak Gama Jr. is a 54 y.o. male who presents for Diabetes. Patient comes for a follow-up visit. He is doing very well. He continues to have excellent responseto the use of GLP-1 with remarkable improvement of his A1c and weight loss. He is tolerating medication well without any side effects so far. He tells me his asthma is very well-controlled on his current inhalers. His BP is good today. He is interested in age-appropriate cancer screening. He has [facility] appointment for colonoscopy. I recommended to do a PSA today. He was never a smoker. He does not know of any family history of malignancy. Review of Systems Constitutional: Negative for chills, fatigue and fever. HENT: Negative for sore throat. Respiratory: Negative for cough, chest tightness and shortness of breath. Cardiovascular: Negative for chest pain, palpitations and leg swelling. Gastrointestinal: Negative for abdominal pain and blood in stool. Visit Vitals BP 122/72 (BP Location: Left arm, Patient Position: Sitting, BP Cuff Size: Large adult) Pulse 80 Temp 98.4 ??F (36.9 ??C) (Temporal) Resp 14 Ht 5' 6 (1.676 m) Wt 263 lb (119 kg) SpO2 96% BMI 42.45 kg/m?? Smoking Status Never BSA 2.35 m?? Objective Physical Exam Constitutional: Appearance: Normal appearance. Cardiovascular: Rate and Rhythm: Normal rate and regular rhythm. Heart sounds: No murmur heard. Pulmonary: Effort: Pulmonary effort is normal. No respiratory distress. Breath sounds: No wheezing, rhonchi or rales. Abdominal: Palpations: Abdomen is soft. Tenderness: There is no abdominal tenderness. Musculoskeletal: Right lower leg: No edema. Left lower leg: No edema. Neurological: Mental Status: He is alert. Current Outpatient Medications on File Prior to Visit Medication Sig Dispense Refill albuterol (2.5 MG/3ML) 0.083% nebulizer solution INHALE 1 AMPULE USING A NEBULIZER THREE TIMES DAILY albuterol 108 (90 Base) MCG/ACT inhaler Inhale 2 puffs every 6 (six) hours if needed for wheezing. Every 4-6 hours as needed for cough, wheeze, SOB 18 g 11 Blood Glucose Monitoring Suppl (Oncopeptidese) w/Device kit TEST BLOOD SUGAR ONCE DAILY (ALTERNATE BETWEEN FASTING BLOOD GLUCOSE AND 2 HOURS AFTER A MEAL DIRECTED) Blood Pressure Monitor [facility] USE DIRECTED EVERY DAY TO MONITOR BLOOD PRESSURE chlorthalidone (Hygroton) 25 MG tablet Take 1 tablet by mouth every morning. 90 tablet 3 dulaglutide (Trulicity) 4.5 MG/0.5ML solution pen-injector Inject 4.5 mg under the skin 1 (one) time per week. 4 each 11 Dulera 200-5 MCG/ACT inhaler INHALE 2 PUFFS BY MOUTH TWICE DAILY IN THE MORNING AND IN THE EVENING.RINSE MOUTH AFTER USING. 13 g 11 FREESTYLE LITE test strip USE DIRECTED TO TEST BLOOD SUGAR ONCE DAILY (ALTERNATE BETWEEN FASTINGBLOOD GLUCOSE AND 2 HOURS AFTER A MEAL DIRECTED) 50 strip 11 Incruse Ellipta 62.5 MCG/ACT aerosol powder INHALE 1 PUFF BY MOUTH EVERY DAY AT THE SAME TIME 30 each 11 losartan (Cozaar) 100 MG tablet Take 1 tablet (100 mg) by mouth in the evening. 90 tablet 3 metoprolol succinate XL (Toprol XL) 25 MG 24 hr tablet Take 1 tablet (25 mg) by mouth Once per day.Do not crush or chew. 90 tablet 3 montelukast (Singulair) 10 MG tablet TAKE 1 TABLET BY MOUTH EVERY EVENING 90 tablet 0 Multiple Vitamin (Multi-Vitamin) tablet OTC PER PATIENT pen needle 32G x 4 mm misc Use as instructed weekly with trulicity 100 each 12 TRUEplus Lancets 33G misc USE DIRECTED TO TEST BLOOD SUGAR ONCE DAILY 100 each 11 Viagra 100 MG tablet TAKE 1 TABLET 1 HOUR BEFORE SEXUAL RELATIONS ONCE DAILY NEEDED. 10 tablet 0 Vitron-C 65-125 MG tablet Take 1 tablet by mouth at bedtime. No current facility-administered medications on file prior to visit. Lab Results Component Value Date HGBA1C 4.9 10/15/2024 HGBA1C 5.3 02/26/2024 HGBA1C 7.2 (A) 12/11/2023 HGBA1C 6.1 03/22/2023 HGBA1C 5.9 (H) 07/07/2022 HGBA1C 5.7 (H) 06/20/2021 Assessment/Plan Diagnoses and all orders for this visit: Type 2 diabetes mellitus with hyperglycemia, without long-term current use of insulin ([facility]) Comments: Patient is congratulated. He is encouraged to continue current medications and avoid sweets. Check fasting blood work listed below including PSA. Keep upcoming appointment with GI for colonoscopy. Orders: - POCT Glucose - POCT HGB A1C - Comprehensive Metabolic Panel; Future - Lipid Panel, Standard; Future - Albumin, Random Urine W/Creatinine; Future Hypertension, unspecified type Moderate persistent asthma without complication Screening for prostate cancer - PSA,Total; Future documented in this encounter Plan of Treatment Upcoming Encounters Date Type Department Care Team (Late st Contact Info) Description 02/18/2025 3:15 PM EDT Office Visit [facility] [address] [place] [address] Kirby Mendenhall MD [address] [place], [place] [phone] 03/09/2025 3:00 PM EDT Office Visit [facility] ADULT DENTAL [address] [place], [place] [phone] Rossy Zhao [address] [place], [place] [phone] Scheduled Orders Name Type Priority Associated Diagnoses Orde r Schedule Comprehensive Metabolic Panel Lab Routine Type 2 diabetes mellitus with hyperglycemia, without long-term current use of insulin ([facility]) Expected: 10/15/2024 (Approximate), Expires: 10/15/2025 Lipid Panel, Standard Lab Routine Type 2 diabetes mellitus with hyperglycemia, without long-term current use of insulin ([facility]) Expected: 10/15/2024 (Approximate), Expires: 10/15/2025 Albumin, Random Urine W/Creatinine Lab Routine Type 2 diabetes mellitus with hyperglycemia, without long-term current use of insulin ([facility]) Expected: 10/15/2024 (Approximate), Expires: 10/15/2025 PSA,Total Lab Routine Screening for prostate cancer Expected: 10/15/2024, Expires: 10/15/2025 documented as of this encounter Goals Goal Patient Goal Type Associated Problems Recent Progress Patient-Stated? Author Blood Pressure < 140/90 Blood Pressure 122/72( 025 4:36 PM EST) No Ami Lux, PharmD Record your blood pressure periodically, as directed. Blood Pressure No Ami Lux, PharmD documented as of this encounter Procedures Procedure Name Priority Date/Time Associated Diagnosis Comments POCT GLYCATED HEMOGLOBIN, TOTAL Routine 10/15/2024 4:38 PM EST Type 2 diabetes mellitus with hyperglycemia, without long-term current use of insulin ([facility]) POCT GLUCOSE Routine 10/15/2024 4:37 PM EST Type 2 diabetes mellitus with hyperglycemia, without long-term current use of insulin ([facility]) documented in this encounter Results * POCT HGB A1C (10/15/2024 4:38 PM EST) Hemoglobin A1C 4.9 4.0 - 6.0 % QC Media Lot # [id number] Lot# Expiration Date 71,626 Blood 10/15/2024 4:38 PM EST us Kirby Mendenhall MD POINT OF CARE TEST ENTER/EDIT OR DERABLES Final Result * POCT Glucose (10/15/2024 4:37 PM EST) Glucose Blood, POC 101 60 - 200 mg/dL QC Media Lot # [id number] Lot# Expiration Date 53,025 Blood Capillary blood specimen / Unknown 10/15/2024 4:37 PM EST us Kirby Mendenhall MD POINT OF CARE TEST ENTER/EDIT OR DERABLES Final Result documented in this encounter Visit Diagnoses Diagnosis Type 2 diabetes mellitus with hyperglycemia, without long-term current use of insulin ([facility])- Primary Hypertension, unspecified type Moderate persistent asthma without complication Screening for prostate cancer Special screening for malignant neoplasm of prostate documented in this encounter Additional Health Concerns Assessment Noted Time PHQ-9 Depression Total Score: 0 02/26/20 24 3:01 PM EDT documented as of this encounter Care Teams Airfreight Operations Agent Relationship Specialty Start Date End Date Name, MD Kirby [address] [place] [address] PCP - General Family Medicine 06/22/21 Ami Lux PharmD [address] [place] [address] Pharmacist Internal Medicine 10/25/21 documented as of this encounter
--- OUTSIDE RECORDS SUMMARY | 2024-11-13 11:36 | XMS_ITS | Encounter Summary ---
Author Organization [employer] Address [address] [place] [address] Care Team Providers Care Hand Presser Name Role Phone Name, Kirby MQCUEEN Primary Care Provider [phone] Ami Lux PharmD Unavailable [phone] Encounter Details Date Type Department Care Team (Late st Contact Info) Description 10/31/2024 Orders Only GENERIC EXTERNAL DATA DEPARTMENT Provider, Generic External Data Social History Tobacco Use Types Packs/Day Years [...] Description 02/18/2025 3:15 PM EDT Office Visit [facility] [address] [place] [address] Name, MD Kirby [address] [place] [address] 03/09/2025 3:00 PM EDT Office Visit [facility] ADULT DENTAL [address] [place] [address] Pavel, Rossy [address] [place] [address] documented as of this encounter Goals Goal Patient Goal Type Associated Problems Recent Progress Patient-Stated? Author Blood Pressure < 140/90 Blood Pressure 122/72( 025 4:36 PM EST) No PuiaFrdedyAmi, PharmD Record your blood pressure periodically, as directed. Blood Pressure No Puia, Ami, PharmD documented as of this encounter Procedures Procedure Name Priority Date/Time Associated Diagnosis Comments GROSS AND MICROSCOPIC LEVEL 3 Routine 10/31/2024 10:39 AM EST GLUCOSE, WHOLE BLOOD Routine 10/31/2024 9:03 AM EST documented in this encounter Results * Gross and Microscopic Level 3 (10/31/2024 10:39 AM EST) 10/31/2024 10:3 9 AM EST 10/31/2024 12:19 PM EST Narrative [facility] - 11/03/2024 4:17 PM EDT ----- ------- Name: Sarthak Gama Jr ?Age/Sex: 54/M ? : 1970 Unit#: [id number] ?? Attend Dr: Augusto Purcell MD ?Re10/31/24 ?Status: DEP SDC ? Location: HO.SSS ?Disch: ? ----- ------- SPEC : [id number] ? RECD: 10/31/24-1218 ? STATUS: ??SOUT ? REQ NUM: [id number] ? DIRK: 10/31/24-9 ? SUBM DR: Augusto Purcell MD ? ENTERED: ??10/31/24-1226 ?SP TYPE: Surgical ? OTHR DR: Kirby [...] surface with a few dilated, blood-filled vessels. ??Senior Resident Care Director sections are submitted for microscopic examination, 3 pieces in cassette A. ??([facility]) Copies To: ?? Augusto Purcell MD ?? [facility] ?? [address] ?? [place] [address] ?? [phone] ?? Name,Kirby MCQUEEN ?? [address] ?? [place] [address] ?? [phone] ----- ------- Signed (signature on file) Tanya Erickson 11/03/247 ? ----- ------- ? END OF REPORT ? Generic External Data Provider LAB CYTOLOGY ORDE RABLES Final Result Performing Organization Address [facility] Co de Phone Number [facility] [address] [place] [address] [phone] * Glucose, Whole Blood (10/31/2024 9:03 AM EST) [facility] Glucose, Whole Blood 86 60 - 115 mg/dL [facility] Comment:METER #: [id number] 10/31/2024 9:03 AM EST 10/31/2024 9:12 AM EST Generic External Data Provider LAB BLOOD ORDERAB LES Final Result Performing Organization Address [facility] Co de Phone Number [facility] [address] [place], [place] [phone] documented in this encounter Visit Diagnoses Not on filedocumented in this encounter Additional Health Concerns Assessment Noted Time PHQ-9 Depression Total Score: 0 02/26/20 24 3:01 PM EDT documented as of this encounter Care Teams Hand Presser Relationship Specialty Start Date End Date Name, MD Kirby [address] [place], [place] [phone] PCP - General Family Medicine 06/22/21 Ami Lux, Ashley [address] [place] [address] Pharmacist Internal Medicine 10/25/21 documented as of this encounter
== END 2024-11-13 10:57 | disposition home or self-care (01) ==
LOC: HO.HGS 10:12
PROVIDERS: PCP Internal Medicine Geriatric Medicine; Visit Provider Surgery
DX: K64.8 Other hemorrhoids (principal)
CPT/HCPCS: 99024

== ENCOUNTER → 2024-11-13 10:12 | Outpatient (BNVA) | payer OTHER, SELFPAY | PROVIDERS: PCP Internal Medicine Geriatric Medicine; Visit Provider Surgery | DX: Z09 Encounter for follow-up examination after completed treatment for conditions other than malignant neoplasm (principal); Z87.19 Personal history of other diseases of the digestive system; Z98.890 Other specified postprocedural states | CPT/HCPCS: 99212 ==

== ENCOUNTER 2025-01-16 15:19 | Outpatient (REF) | payer OTHER, SELFPAY ==
[2025-01-16 16:57] LABS: Alanine Aminotransferase 43 U/L (0-40); Albumin Level 4.5 g/dL (3.5-5.0); Alkaline Phosphatase 108 U/L (39-117); Anion Gap 13 (12-20); Aspartate Amino Transferase 44 U/L (5-37); Bilirubin Total 0.4 mg/dL (0.0-1.0); Blood Urea Nitrogen 18 mg/dL (9-16); Calcium 9.4 mg/dL (8.4-10.2); Carbon Dioxide 30 mmol/L (22-29); Chloride 102 mmol/L (96-108); Cholesterol 126 mg/dL (<200); Estimated Glomerular Filt Rate > 60; Glucose Random 80 mg/dL (60-115); HDL Cholesterol 39 mg/dL (>40); LDL Cholesterol Calculated 67 mg/dL (<100); Potassium 3.5 mmol/L (3.3-5.1); Sodium 141 mmol/L (135-145); Total Protein 7.9 g/dL (6.5-8.0); Triglycerides 102 mg/dL (<150)
[2025-01-16 17:00] LABS: Creatinine Urine 190.59 mg/dL; Microalbum/Creatinine Ratio Ur 3.1 ug/mg cr (<30)
[2025-01-16 17:19] LABS: Prostate Specific Antigen 1.43 ng/mL (<0.05-4.0)
== END 2025-01-16 15:20 | disposition home or self-care (01) ==
LOC: HO.HHCL 15:19
PROVIDERS: Visit Provider Internal Medicine Geriatric Medicine
DX: E11.65 Type 2 diabetes mellitus with hyperglycemia (principal); Z12.5 Encounter for screening for malignant neoplasm of prostate
CPT/HCPCS: 36415; 80053; 80061; 82043; 82570; 84153